=== PATIENT | female | born 1950 | race Caucasian/White ===

== ENCOUNTER → 2017-11-10 08:37 | Outpatient (CLI) | payer MEDICARE, OTHER, SELFPAY ==
--- NOTE | 2017-11-10 08:48 | MM_ITS ---
MM Dig screening mamm BI w/CAD CAD Screening ORDERING PHYSICIAN : Mayur Barnhart MD PATIENT AGE: 67 years GENDER: Female COMPARISON: Previous mammograms Previous mammograms 08/16/2014, April 2012. December 2010. Including outside studies from [facility] HISTORY no hormones. No new complaints. Previous needle biopsies right breast benign. Laboratory family history TECHNIQUE: Standard CC and MLO images were obtained. R2 CAD reviewed. FINDINGS: Low-density breast. . Generalized replacement with minimal fibroglandular elements The scattered densities right breast appear stable since studies dating back to 2013 & even 2011 on right. The deep axillary nodes right breast appears stable. Deep margin right breast and axillary tail left breast. No significant new findings. . IMPRESSION: . Stable mammogram since 2013. No significant new findings. Bilateral follow-up one year recommended. BI-RADS Category: 2 Benign Finding(s) RECOMMENDED FOLLOW-UP: 1YR - 1 YEAR FOLLOW-UP (A letter has been sent to the patient regarding results of the study.)
== END ==
PROVIDERS: Family Provider Internal Medicine Adolescent Medicine; PCP Internal Medicine Adolescent Medicine; Visit Provider Internal Medicine Adolescent Medicine
DX: Z12.31 Encounter for screening mammogram for malignant neoplasm of breast (principal)
CPT/HCPCS: 77067

== ENCOUNTER → 2019-08-26 11:35 | Outpatient (CLI) | payer MEDICARE, OTHER, SELFPAY ==
--- NOTE | 2019-08-26 11:42 | XR_ITS ---
PROCEDURE: XR MULTIPLE SPINE 6+V CLINICAL INDICATION: MIDLINE AND LOW BACK PAIN Midlung back pain. Bilateral low back pain COMPARISON: CXR1 CHEST-PORTABLE from 08/28/2016 FINDINGS: Thoracic spine: Mild thoracic scoliosis convex right. Multilevel degenerative disc disease is present in the midthoracic spine with endplate osteophytes. No obvious acute fracture or dislocation. There is increased soft tissue density in the left lung apex medially suspicious for a mass. Recommend chest CT with contrast for further evaluation. Lumbar spine: Mild lumbar scoliosis convex left. Facet arthritic changes are present at L5-S1. There is degenerative disc disease at L2-L3 and L3-L4. No acute fracture or dislocation. No lytic or blastic change IMPRESSION: 1. Left upper lobe mass medially. Recommend chest CT with contrast for further evaluation 2. Degenerative changes thoracic spine with mild scoliosis convex right. 3. Degenerative changes lumbar spine with mild scoliosis convex left Dictated by: Gil Emerson MD 08/26/2019 12:12 Electronically signed by Gil Emerson MD in [place] 08/26/2019 12:12
== END ==
PROVIDERS: PCP Nurse Practitioner Family; Visit Provider Nurse Practitioner Family
DX: M54.5 Low back pain (principal); M54.6 Pain in thoracic spine
CPT/HCPCS: 72084

== ENCOUNTER → 2019-09-03 14:08 | Outpatient (CLI) | payer MEDICARE, OTHER, SELFPAY ==
--- NOTE | 2019-09-03 14:45 | CT_ITS ---
PROCEDURE: CT CHEST W CON CLINCAL INDICATION: LUNG MASS Lung mass noted on recent thoracic spine film., smoker, COMPARISON: CXR1 CHEST-PORTABLE from 08/28/2016 XR MULTIPLE SPINE 6+V from 08/26/2019 TECHNIQUE: IV Contrast: 75ml Optiray 350 Axial images obtained with sagittal and coronal reformats. All CT scans at the facility use one or more dose reduction, viz: automated exposure control, ma/kV adjustment per patient size (including targeted exams where dose is matched to indication, i.e. head), or iterative reconstruction technique. FINDINGS: There is a soft tissue mass in the left upper chest medially measuring 6 cm cephalad caudad, 5.2 cm AP, and 4.2 cm transverse. This does abut the lateral aspect of the posterior mediastinum on the left abutting the left subclavian artery posteriorly and laterally but not encircling the artery. The mass also abuts the left lateral aspect of the aortic arch. No obvious mediastinal or hilar adenopathy. There are few small nodes present within the mediastinum and shari. There is some nonspecific patchy ground-glass density in both lungs. There is a faint 8 mm nodule in the superior segment of the left lower lobe posteriorly. A 3 mm noncalcified nodules present in the left upper lobe laterally. A subpleural nodules present in the medial aspect of the lingula at 4 mm. There are atelectatic or fibrotic changes in the lung bases. There are scattered subpleural opacities in the left lower lobe nonspecific measuring up to 3 mm. Patchy density is also present in the left upper lobe laterally. There are centrilobular emphysematous changes. An irregular nodular opacity is present in the right upper lobe in the perihilar region at 5 mm. A subpleural nodules present in the right middle lobe anteriorly at 9 mm and 1 in the right middle lobe medially at 5 mm. Other smaller subpleural nodular opacities are present in the right lower lobe. No axillary adenopathy. Upper abdominal images show a subtle isodense to the in the right hepatic lobe at the periportal area at 13 mm and could even be due to fatty infiltration. There is an incompletely imaged solid mass in the retroperitoneum on the left measuring 7.3 cm AP and 6 cm transverse. This is contiguous with the left adrenal gland. The left kidney is not imaged to determine the definite organ of origin. No bony destructive process evident. IMPRESSION: 1. 6 x 5 cm mass involving the medial aspect of the left upper lobe abutting the mediastinum and Ragini final pleural region highly suspicious for neoplasm. 2. There is a 7 cm retroperitoneal mass on the left which may be adrenal or renal in origin. Recommend abdomen CT without and with contrast with renal protocol for further evaluation. This is also highly suspicious for neoplasm and may be metastatic or primary. 3. There are several small pulmonary nodular opacities which are indeterminate and could be postinflammatory or neoplastic such as metastatic disease. 4. Centrilobular emphysema with scattered ground-glass densities of the lung Dictated by: Gil Emerson MD 09/04/2019 10:57 Electronically signed by Gil Emerson MD in [place] 09/04/2019 10:57
== END ==
PROVIDERS: PCP Nurse Practitioner Family; Visit Provider Nurse Practitioner Family
DX: R91.8 Other nonspecific abnormal finding of lung field (principal)
CPT/HCPCS: 71260; Q9967

== ENCOUNTER → 2020-03-28 09:02 | Outpatient (CLI) | payer MEDICARE, OTHER, SELFPAY ==
[2020-03-28 09:17] LABS: Adenovirus F 40/41, stool Not Detected (NotDetected); Astrovirus Not Detected (NotDetected); Campylobacter Not Detected (NotDetected); Clostridium Difficile A/B, PCR Not Detected (NotDetected); Cryptosporidium Not Detected (NotDetected); Cyclospora Cayetanesis Not Detected (NotDetected); Entamoeba histolytica Not Detected (NotDetected); Enteroaggregative E coli Not Detected (NotDetected); Enteropathogenic E coli Not Detected (NotDetected); Enterotoxigenic E coli Not Detected (NotDetected); Giardia lamblia Not Detected (NotDetected); Norovirus Not Detected (NotDetected); Plesimonas Shigalloides, PCR Not Detected (NotDetected); Rotavirus A Not Detected (NotDetected); Salmonella, PCR Not Detected (NotDetected); Sapovirus Not Detected (NotDetected); Shiga-like toxin E coli Not Detected (NotDetected); Shigella Enterovasive E coli Not Detected (NotDetected); Vibrio Cholerae Not Detected (NotDetected); Vibrio, PCR Not Detected (NotDetected); Yersinia Entercolitica, PCR Not Detected (NotDetected)
[2020-03-30 08:56] LABS: Fats, Neutral Normal (.); Fats, Total Normal (.)
[2020-04-05 19:42] LABS: Lactoferrin, Fecal, Quant. 5.24 ug/mL(g) (0.00-7.24)
== END ==
PROVIDERS: Visit Provider Internal Medicine Gastroenterology
DX: R15.2 Fecal urgency (principal); K52.9 Noninfective gastroenteritis and colitis, unspecified
CPT/HCPCS: 82705; 83630; 87205; 87506

== ENCOUNTER → 2020-09-01 15:36 | Outpatient (CLI) | payer MEDICARE, OTHER, SELFPAY | PROVIDERS: Visit Provider Urology | DX: N39.0 Urinary tract infection, site not specified (principal) | CPT/HCPCS: 87086 ==

== ENCOUNTER → 2020-09-05 13:44 | Outpatient (CLI) | payer MEDICARE, OTHER, SELFPAY ==
--- NOTE | 2020-09-05 13:53 | XR_ITS ---
PROCEDURE: XR KUB CLINICAL INDICATION: DYSURIA,HEMATURIA,TERESO FLANK PAIN COMPARISON: CT ABDPELW CT ABD PELVIS W/ CONTRAST from 12/24/2016 FINDINGS: Nonspecific nonobstructive bowel gas pattern. Suture line is present in the pelvic region. There is a circular density in the right upper quadrant at the costo vertebral junction and an additional circular density in the left upper quadrant. This may be due to overlying garment artifact. No definite ureteral or renal calculi parent. There are mild degenerative changes of the spine and hips. IMPRESSION: No definite renal or ureteral calculus evident. Dictated by: Gil Emerson MD 09/05/2020 16:44 Gil Emerson MD in [place] 09/05/2020 16:44
[2020-09-05 16:01] LABS: Basophils # 0.1 K/mm3 (0-0.2); Basophils % 0.9 % (0.1-2.0); Eosinophils # 0.1 K/mm3 (0.0-0.4); Eosinophils % 1.5 % (0.1-12.0); Hematocrit 43.7 % (37.0-47.0); Hemoglobin 13.7 g/dL (12.2-16.2); Lymphocytes # 2.4 K/mm3 (0.7-4.5); Lymphocytes % 28.2 % (10-50); Mean Corpuscular HGB Conc 31.3 g/dL (31.8-35.4); Mean Corpuscular Hemoglobin 28.6 pg (27.0-31.2); Mean Corpuscular Volume 91.4 fl (81-99); Mean Platelet Volume 9.2 fl (7.4-10.4); Monocytes # 0.6 K/mm3 (0.1-1.0); Monocytes % 6.5 % (1.7-9.3); Neutrophils # 5.4 K/mm3 (1.8-7.8); Platelet Count 279 K/mm3 (142-424); Red Blood Count 4.79 M/mm3 (4.20-5.40); Red Cell Distribution Width 14.2 % (11.5-17.5); White Blood Count 8.6 K/mm3 (4.8-10.8)
[2020-09-05 16:48] LABS: Chloride 104 mmol/L (98-107); Sodium 139 mmol/L (136-145)
[2020-09-05 16:50] LABS: Alanine Aminotransferase 27 U/L (12-78); Aspartate Amino Transferase 39 U/L (14-36); Blood Urea Nitrogen 11 mg/dl (7-17); Estimated Glomerular Filt Rate 83 ml/min (>60); GFR (African American) 101 ML/MIN (>60)
[2020-09-05 16:51] LABS: Albumin Level 4.4 g/dl (3.5-5.0); Albumin/Globulin Ratio 1.3 (1.1-1.8); Alkaline Phosphatase 96 U/L (38-126); Bilirubin,Total 0.6 mg/dl (0.2-1.3); Calcium 9.7 mg/dl (8.4-10.2); Carbon Dioxide 25 mmol/L (22.0-30.0); Globulin 3.4 g/dL (1.3-3.2); Glucose 87 mg/dl (74-100); Total Protein,Serum 7.8 g/dl (6.3-8.2)
[2020-09-07 11:30] LABS: Covid-19 Nasal PCR Sendout P&C NEGATIVE
== END ==
PROVIDERS: PCP Nurse Practitioner Family; Visit Provider Nurse Practitioner Family
DX: Z01.812 Encounter for preprocedural laboratory examination (principal); Z11.52 Encounter for screening for COVID-19; R10.9 Unspecified abdominal pain; R31.29 Other microscopic hematuria; R30.0 Dysuria
CPT/HCPCS: 36415; 74018; 80053; 85025; U0004

== ENCOUNTER → 2020-09-12 14:40 | Outpatient (CLI) | payer MEDICARE, OTHER, SELFPAY ==
[2020-09-12 16:03] LABS: Blood Urea Nitrogen 10 mg/dl (7-17); Estimated Glomerular Filt Rate 62 ml/min (>60); GFR (African American) 75 ML/MIN (>60)
== END ==
PROVIDERS: Visit Provider Internal Medicine Hematology & Oncology
DX: Z01.812 Encounter for preprocedural laboratory examination (principal)
CPT/HCPCS: 36415; 82565; 84520

== ENCOUNTER 2020-09-13 08:55 | Outpatient (CLI) | payer MEDICARE, OTHER, SELFPAY ==
--- NOTE | 2020-09-13 09:00 | CT_ITS ---
PROCEDURE: CT ABDOMEN PELVIS W CON CLINICAL INDICATION: PER CLINICAL TRIAL PROTOCOL Follow-up adrenal mass, lung cancer, metastatic disease Prior appendectomy COMPARISON: CT ABDPELW CT ABD PELVIS W/ CONTRAST from 12/24/[address] CHEST W CON from 09/03/2019 TECHNIQUE: IV Contrast: 75ML Isovue 370 Oral Contrast None Axial images obtained with sagittal and coronal reformats. All CT scans at the facility use one or more dose reduction, viz: automated exposure control, ma/kV adjustment per patient size (including targeted exams where dose is matched to indication, i.e. head), or iterative reconstruction technique. FINDINGS: There is mild diffuse fatty liver infiltration. No focal liver lesions are evident. Left adrenal mass is once again noted measuring 3.4 by 2.3 cm previously 7.3 by 6 cm. There is some minimal calcification along the upper pole of the mass. There is also some mild stranding of the fat around this lesion. The right adrenal gland has an unremarkable appearance. The spleen, pancreas, and kidneys have an unremarkable appearance. There is a retro aortic left renal vein as a normal variant. Suture line is present at the cecal region. There is some thickening of the sigmoid colon nonspecific. This could be due to nondistention or mild colitis. There is a suture line at the rectosigmoid region. There is moderate to severe thickening of the urinary bladder wall and minimal stranding of the fat around the urinary bladder consistent with cystitis. Neoplasm would be included in the differential diagnosis. No acute bony findings. IMPRESSION: 1. Left adrenal mass is smaller compared to the previous exam as described above 2. Moderate to severe irregular thickening of the urinary bladder wall with stranding of the fat consistent with cystitis. Neoplasm would be included in the differential diagnosis. 3. Mild thickening of the sigmoid colon which could be due to nondistention or mild colitis. Dictated by: Gil Emerson MD 09/14/2020 12:20 Gil Emerson MD in [place] 09/14/2020 12:20
--- NOTE | 2020-09-13 09:02 | CT_ITS ---
PROCEDURE: CT CHEST W CON CLINCAL INDICATION: PER CLINICAL TRIAL PROTOCOL Lung cancer Currently on keytuda Increased soa COMPARISON: CT CT CHEST W CON from 09/03/2019 TECHNIQUE: IV Contrast: 75ml Isovue 370 Axial images obtained with sagittal and coronal reformats. All CT scans at the facility use one or more dose reduction, viz: automated exposure control, ma/kV adjustment per patient size (including targeted exams where dose is matched to indication, i.e. head), or iterative reconstruction technique. FINDINGS: There is 3.3 x 2.8 cm soft tissue mass in the left upper lobe medially. This does appear to involve the posterior mediastinal fat and extends just along the posterior lateral aspect of the left subclavian artery. The mass previously measured 5.2 x 4.2 cm. Small node is present in the AP window on the left at 12 mm not significantly changed. Coronary artery calcifications are present. There is irregular scattered increased density in the left upper lobe medially both anteriorly and posteriorly and may be related to radiation changes which has developed since the previous exam. There are scattered areas of ground-glass attenuation in the upper lobe on the right unchanged. 8 mm nodule in the right middle lobe may be slightly more prominent. Subpleural nodules present in the right middle lobe anteriorly at 9 mm unchanged with an additional 4 mm subpleural nodule medially in the right middle lobe unchanged. There is a new 9 mm nodule in the right lung base medially. A 10 mm nodule is present in the right lung base posteriorly. This has developed since the previous exam. There are 2 subpleural nodules in the right lower lobe posteriorly which are unchanged. Subpleural nodules in the left lower lobe are unchanged. A nodular opacity present along the left hemidiaphragm at 5 mm is present and unchanged 5 mm nodule left lower lobe posteriorly unchanged No acute bony findings. No lytic or blastic change evident. IMPRESSION: 1. Interval decrease in size in left upper lobe mass with suspected post radiation changes. 2. Multiple bilateral pulmonary nodules. There are 2 new nodules in the right lower lobe suspicious for metastatic foci. Dictated by: Gil Emerson MD 09/14/2020 12:13 Gil Emerson MD in [place] 09/14/2020 12:13
[2020-09-13 10:10] VITALS: BP 162/66; PULSE 75; RESP 18; TEMP 36.6; O2SAT 99
[2020-09-13 10:40] VITALS: BP 178/77; PULSE 75; RESP 18
[2020-09-13 11:10] VITALS: BP 171/75; PULSE 73; RESP 18; O2SAT 100
== END 2020-09-13 11:15 | disposition home or self-care (01) ==
LOC: RAD 08:56 → INF 10:04
PROVIDERS: PCP Internal Medicine Adolescent Medicine; Visit Provider Internal Medicine Hematology & Oncology
DX: E86.0 Dehydration (principal); C34.90 Malignant neoplasm of unspecified part of unspecified bronchus or lung; N30.30 Trigonitis without hematuria; N30.10 Interstitial cystitis (chronic) without hematuria
CPT/HCPCS: 71260; 74177; 96360; J1642; Q9967

== ENCOUNTER → 2020-11-09 15:48 | Outpatient (CLI) | payer MEDICARE, OTHER, SELFPAY | PROVIDERS: Visit Provider Urology | DX: N30.10 Interstitial cystitis (chronic) without hematuria (principal) | CPT/HCPCS: 87086 ==

== ENCOUNTER → 2021-06-07 12:06 | Outpatient (CLI) | payer MEDICARE, OTHER, SELFPAY | PROVIDERS: Visit Provider Internal Medicine Adolescent Medicine | DX: R30.0 Dysuria (principal); W19.XXXA Unspecified fall, initial encounter | CPT/HCPCS: 87086; 87088; 87186 ==

== ENCOUNTER → 2021-06-20 10:55 | Outpatient (CLI) | payer MEDICARE, OTHER, SELFPAY | PROVIDERS: Visit Provider Internal Medicine Adolescent Medicine | DX: R30.9 Painful micturition, unspecified (principal); B96.4 Proteus (mirabilis) (morganii) as the cause of diseases classified elsewhere | CPT/HCPCS: 87086; 87088; 87186 ==

== ENCOUNTER → 2021-08-13 14:50 | Outpatient (CLI) | payer MEDICARE, OTHER, SELFPAY | PROVIDERS: Visit Provider Nurse Practitioner Family | DX: R30.0 Dysuria (principal); B96.4 Proteus (mirabilis) (morganii) as the cause of diseases classified elsewhere | CPT/HCPCS: 87086; 87088; 87186 ==

== ENCOUNTER → 2021-10-23 12:54 | Outpatient (POV) | payer MEDICARE, OTHER, SELFPAY | PROVIDERS: Visit Provider Dermatology | DX: Z00.00 Encounter for general adult medical examination without abnormal findings (principal) ==

== ENCOUNTER → 2021-11-01 17:11 | Outpatient (CLI) | payer MEDICARE, OTHER, SELFPAY | PROVIDERS: Visit Provider Urology | DX: N30.10 Interstitial cystitis (chronic) without hematuria (principal) | CPT/HCPCS: 87086; 87088; 87186 ==

== ENCOUNTER → 2021-11-20 13:16 | Outpatient (POV) | payer MEDICARE, OTHER, SELFPAY | PROVIDERS: Visit Provider Dermatology | DX: Z00.00 Encounter for general adult medical examination without abnormal findings (principal) ==

== ENCOUNTER → 2021-11-30 15:02 | Outpatient (CLI) | payer MEDICARE, OTHER, SELFPAY ==
--- NOTE | 2021-11-30 15:06 | MR_ITS ---
FINAL REPORT CLINICAL HISTORY: PUDENDAL NEURALGIA, LUMBAR NEURALGIA. URINARY AND BOWEL INCONTINENCE. LUNG AND ADRENAL CANCER. RADIATION X2YRS AGO. FINDINGS: Multiplanar MR imaging of the lumbar spine was performed without contrast. On the sagittal T2-weighted images, disc degeneration is seen at multiple levels. The vertebral alignment is normal. There is no evidence of fracture. No bony mass is identified. The conus has an unremarkable appearance. No significant canal stenosis is identified. T11-T12: Unremarkable. T12-L1: An annular bulge is present. L1-2: There is no significant canal stenosis or neural foraminal narrowing. L2-3: An annular bulge is present. Vertebral osteophytes and bilateral facet arthropathy are present. Moderate right and mild left neural foraminal narrowing is seen. L3-4: An annular bulge is present. There is mild bilateral neural foraminal narrowing. L4-5: An annular bulge is present. A left foraminal disc protrusion is seen with probable left L5 nerve root impingement. Mild right and moderate left neural foraminal narrowing is seen. L5-S1: An annular bulge is present. There is bilateral facet arthropathy. There is mild bilateral neural foraminal narrowing. IMPRESSION: Multilevel degenerative disc disease and spondylosis as described. Left foraminal L4-5 disc protrusion with probable left L5 nerve root impingement. Authenticated by Tavon Gonzales III, MD on 11/30/2021 04:42:51 PM [facility]
== END ==
PROVIDERS: PCP Nurse Practitioner Family; Visit Provider Internal Medicine Adolescent Medicine
DX: G58.8 Other specified mononeuropathies (principal); R15.9 Full incontinence of feces
CPT/HCPCS: 72148; 76376

== ENCOUNTER 2021-12-07 13:05 | Outpatient (RCR) | payer MEDICARE, OTHER, SELFPAY | END 2021-12-07 13:10 | disposition home or self-care (01) | LOC: PT 13:05 | PROVIDERS: PCP Nurse Practitioner Family; Visit Provider Internal Medicine Adolescent Medicine | DX: M54.16 Radiculopathy, lumbar region (principal) ==

== ENCOUNTER → 2022-01-01 13:04 | Outpatient (POV) | payer MEDICARE, OTHER, SELFPAY | PROVIDERS: Visit Provider Dermatology | DX: Z00.00 Encounter for general adult medical examination without abnormal findings (principal) ==

== ENCOUNTER 2022-02-14 15:17 | Emergency (ER) | payer MEDICARE, OTHER, SELFPAY ==
[2022-02-14 15:19] VITALS: BP 165/90; PULSE 86; RESP 16; TEMP 36.6; O2SAT 98; BMI 28.3
--- NOTE | 2022-02-14 15:23 | PC.NURSE ---
pt ambulatory from waiting room to ED room 5 with family; no complications. Claudine RN at BS to triage, pt hooked to monitor. pt given a warm blanket. No other needs at this time
--- NOTE | 2022-02-14 15:28 | PC.NURSE ---
ER speaking with pt at BS regarding update on POC
--- NOTE | 2022-02-14 15:39 | PC.NURSE ---
ER at speaking with patient and family
[2022-02-14 15:46] VITALS: BP 149/61; PULSE 80; O2SAT 96
--- NOTE | 2022-02-14 15:54 | HMH.EDGENADL ---
ED Disposition Clinical Impression: Neuralgia of both pudendal nerves UTI (urinary tract infection) Qualifiers: Urinary tract infection type: acute cystitis Hematuria presence: without hematuria Qualified Code(s): N30.00 - Acute cystitis without hematuria Disposition: Home, Self-Care Condition on Discharge: Good Instructions: DI for Chronic Pain -- Adult, Urinary Tract Infection Additional Instructions: follow up PCP, return here for worse Prescriptions: Cefdinir [Omnicef 300mg Capsule] 300 mg PO BID #20 cap Transmission Status: Pending to [id number] Phenazopyridine HCl [Pyridium 200mg Tablet] 200 pow PO TID #6 tab Transmission Status: Pending to [id number] Referrals: Mayur Barnhart MD [Primary Care Provider] - - Critical Care Critical Care Time: No Attestation: On , the high probability of a clinically significant, sudden or life threatening deterioration of the following system(s) required my full and direct attention, intervention and personal management. The time I documented below is in addition to time spent performing reported procedures but includes the following listed in this critical care notation. Medical Decision Making - Medical Records Medical records reviewed: Yes: I reviewed the patient's medical records. - Horacio Inquiry Pt receiving controlled substance: No Vital Signs: 02/14/22 15:19 02/14/22 15:46 02/14/22 16:00 Temperature 98 F Temperature Source Oral Pulse Rate 80 79 Pulse Rate [Radial] 86 Respiratory Rate 16 Blood Pressure 149/61 H 141/76 H Blood Pressure [Right Arm] 165/90 H Blood Pressure Mean 90 95 Blood Pressure Mean [Right Arm] 115 Blood Pressure Position Blood Pressure Position [Right Arm] Sitting 02 Sat by Pulse Oximetry 98 96 95 Oxygen Delivery Method Room Air Room Air Room Air 02/14/22 16:30 Temperature Temperature Source Pulse Rate 78 Pulse Rate [Radial] Respiratory Rate Blood Pressure 153/77 H Blood Pressure [Right Arm] Blood Pressure Mean 102 Blood Pressure Mean [Right Arm] Blood Pressure Position Sitting Blood Pressure Position [Right Arm] 02 Sat by Pulse Oximetry 96 Oxygen Delivery Method Room Air - Lab Data Lab Results 02/14/22 16:05: Urine Color Yellow, Urine Appearance Clear, Urine pH 6.0, Ur Specific [place] 1.025, Urine Protein 2+, Urine Glucose (UA) Negative, Urine Ketones Trace, Urine Blood 2+, Urine Nitrate Positive, Urine Bilirubin 1+ A, Urine Urobilinogen 0.2, Ur Leukocyte Esterase 2+ A Orders (Tests/Meds): ED MEDICATIONS Discontinued Medications Generic Name Dose Route Start Last Admin Trade Name Clarence PRN Reason Stop Dose Admin Ketorolac Tromethamine 30 mg 02/14/22 15:50 02/14/22 16:16 Ketorolac 30mg/Ml Vial IM 02/14/22 15:51 30 mg ONCE ONE Administration Morphine Sulfate 6 mg 02/14/22 15:50 02/14/22 16:16 Morphine 2mg/Ml Syringe IM 02/14/22 15:51 6 mg ONCE ONE Administration ORDERS Category Date Time Status Urinalysis and Microscopic Stat Lab 02/14/22 16:05 Results Urine Culture Stat Micro 02/14/22 16:05 Received - Reevaluation(s) Time: 16:31 (reeval, appears well, vss, ok with plan to f/u PCP) General Adult HPI - General Chief complaint: PAIN Stated complaint: Cancer pain [place] Time Seen by Provider: 02/14/22 15:54 Mode of Arrival: Ambulatory Limitations: No Limitations Description of Symptoms (Recalled from ER Triage Doc. by RN): to ed per pvt car with c/o severe pain with urination. pt with hx of stage 4 lung cancer getting keytruda tx. pt states she has had pain with urination for months has seen several drs for same but over the last 2 days she has been screaming in pain. 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
[2022-02-14 16:00] VITALS: BP 141/76; PULSE 79; O2SAT 95
--- NOTE | 2022-02-14 16:17 | PC.NURSE ---
straight cathed. pt c/o pain. daughter at bedside.
[2022-02-14 16:22] LABS: Microscopic, Urine URINE MICROSCOPIC (MICROSCOPIC)
[2022-02-14 16:26] LABS: Appearance,Urine CLEAR (Clear); Blood, Urine 2+ (Negative); Color,Urine YELLOW (Yellow); Glucose,Urine (UA) Negative (Negative); Ketones,Urine TRACE (Negative); Leukocyte Esterase,Urine 2+ (Negative); Nitrate,Urine POSITIVE (Negative); Protein,Urine 2+ (Negative); Specific Gravity, Urine 1.025 (1.005-1.030); Urobilinogen,Urine 0.2 EU/dl (0.2)
[2022-02-14 16:30] VITALS: BP 153/77; PULSE 78; O2SAT 96
[2022-02-14 16:45] LABS: Bilirubin,Urine 1+ (Negative)
[2022-02-14 16:58] LABS: RBC,Urine 20-50 #/hpf (0-3); WBC,Urine 50-100 #/hpf (0-3)
[2022-02-14 16:59] LABS: Bacteria,Urine 2+ /lpf
[2022-02-14 17:00] VITALS: BP 142/72; PULSE 81; O2SAT 98
[2022-02-14 17:10] VITALS: BP 140/73; PULSE 80; RESP 15; TEMP 36.6; O2SAT 99
== END 2022-02-14 17:11 | disposition home or self-care (01) ==
PROVIDERS: Emergency Provider Emergency Medicine; PCP Internal Medicine Adolescent Medicine
DX: C34.90 Malignant neoplasm of unspecified part of unspecified bronchus or lung (principal); R10.2 Pelvic and perineal pain; Z87.440 Personal history of urinary (tract) infections; E78.5 Hyperlipidemia, unspecified; I10 Essential (primary) hypertension; M19.90 Unspecified osteoarthritis, unspecified site; Z87.891 Personal history of nicotine dependence
CPT/HCPCS: 81001; 87086; 87088; 87186; 96374; 96375; 99284

== ENCOUNTER → 2022-03-05 13:25 | Outpatient (POV) | payer MEDICARE, OTHER, SELFPAY | PROVIDERS: Visit Provider Dermatology | DX: Z00.00 Encounter for general adult medical examination without abnormal findings (principal) ==

== ENCOUNTER 2022-04-16 16:39 | Emergency (ER) | payer MEDICARE, OTHER, SELFPAY ==
--- NOTE | 2022-04-16 16:39 | ECG_ITS ---
APPROVED REPORT Exam: Resting ECG HR:95 bpm ECG Measurements Heart Rate 95 AXES DC 145 P 48 QRSd 86 QRS -20 QT 345 T 24 QTc 398 Conclusion SINUS RHYTHM LOW QRS VOLTAGE IN PRECORDIAL LEADS [QRS DEFLECTION < 1.0 mV IN CHEST LEADS] PATTERN CONSISTENT WITH PULMONARY DISEASE LEFT VENTRICULAR HYPERTROPHY AND ST-T CHANGE [VOLTAGE CRITERIA PLUS ST/T ABNORMALITY] ABNORMAL ECG UNCONFIRMED REPORT Electronically signed by : Mayur Barnhart MD 04/20/2022 08:13:35
[2022-04-16 16:45] VITALS: BP 157/76; PULSE 103; RESP 16; TEMP 37.2; O2SAT 99; BMI 27.0
[2022-04-16 17:00] VITALS: BP 148/76; PULSE 96; RESP 18; O2SAT 96
--- NOTE | 2022-04-16 17:05 | XR_ITS ---
PROCEDURE INFORMATION: Exam: XR Chest Exam date and time: 04/16/2022 5:41 PM Age: 71 years old Clinical indication: Pain; Chest pressure; Additional info: Weakness, cp TECHNIQUE: Imaging protocol: Radiologic exam of the chest. Views: 1 view. COMPARISON: CT CHEST W CON 09/13/2020 9:35 AM FINDINGS: Tubes, catheters and devices: Right port tip projects over the superior cavoatrial junction. Lungs: There is a mid left lung opacity that could correlate with atypical infection in the appropriate clinical setting. Masslike left upper lobe opacity is similar to prior study. Pleural spaces: Unremarkable. No pleural effusion. No pneumothorax. Heart/Mediastinum: Unremarkable. No cardiomegaly. Vasculature: Vascular calcifications. Bones/joints: Unremarkable. IMPRESSION: 1. There is a mid left lung opacity that could correlate with atypical infection in the appropriate clinical setting. Metastatic disease or recurrent malignancy is also possible. 2. Masslike left upper lobe opacity is similar to prior study.
[2022-04-16 17:47] LABS: Basophils # 0.1 K/mm3 (0-0.2); Basophils % 0.7 % (0.1-2.0); Eosinophils # 0.1 K/mm3 (0.0-0.4); Eosinophils % 0.8 % (0.1-12.0); Hematocrit 42.8 % (37.0-47.0); Hemoglobin 13.3 g/dL (12.2-16.2); Lymphocytes # 1.4 K/mm3 (0.7-4.5); Lymphocytes % 12.1 % (10-50); Mean Corpuscular Hemoglobin 27.9 pg (27.0-31.2); Mean Corpuscular Volume 90.2 fl (81-99); Mean Platelet Volume 8.7 fl (7.4-10.4); Monocytes # 0.7 K/mm3 (0.1-1.0); Monocytes % 6.5 % (1.7-9.3); Neutrophils % 79.9 % (37.0-80.0); Platelet Count 324 K/mm3 (142-424); Red Blood Count 4.75 M/mm3 (4.20-5.40); Red Cell Distribution Width 14.9 % (11.5-17.5); White Blood Count 11.3 K/mm3 (4.8-10.8)
[2022-04-16 17:50] LABS: Alanine Aminotransferase 34 U/L (12-78); Albumin Level 3.7 g/dl (3.5-5.0); Alkaline Phosphatase 136 U/L (38-126); Anion Gap 12.2 mEq/L (5-15); Aspartate Amino Transferase 61 U/L (14-36); Bilirubin,Total 0.2 mg/dl (0.2-1.3); Blood Urea Nitrogen 4 mg/dl (7-17); Calcium 8.7 mg/dl (8.4-10.2); Carbon Dioxide 28 mmol/L (22.0-30.0); Chloride 104 mmol/L (98-107); Creatinine Clearance Estimated 68 mL/min (50-200); Estimated Glomerular Filt Rate 55 ml/min (>60); GFR (African American) 67 ML/MIN (>60); Globulin 3.8 g/dL (1.3-3.2); Glucose 114 mg/dl (74-100); Potassium 3.2 mmoL/L (3.5-5.1); Sodium 141 mmol/L (136-145); Total Protein,Serum 7.5 g/dl (6.3-8.2)
--- NOTE | 2022-04-16 17:58 | HMH.EDGENADL ---
ED Disposition Clinical Impression: UTI (urinary tract infection) Qualifiers: Urinary tract infection type: site unspecified Hematuria presence: without hematuria Qualified Code(s): N39.0 - Urinary tract infection, site not specified Disposition: Home, Self-Care Condition on Discharge: Good Instructions: Urinary Tract Infection Prescriptions: Amoxicillin/Potassium Clav [Augmentin 500mg tab] 1 tab PO BID 3 Days #14 tab Transmission Status: Pending to [id number] Referrals: Mayur Barnhart MD [Primary Care Provider] - - Critical Care Critical Care Time: No Attestation: On 04/16/22, the high probability of a clinically significant, sudden or life threatening deterioration of the following system(s) required my full and direct attention, intervention and personal management. The time I documented below is in addition to time spent performing reported procedures but includes the following listed in this critical care notation. Medical Decision Making - Medical Records Medical records reviewed: Yes: I reviewed the patient's medical records. - Horacio Inquiry Pt receiving controlled substance: No Vital Signs: 04/16/22 16:45 04/16/22 17:00 04/16/22 18:23 Temperature 99.0 F Temperature Source Oral Pulse Rate 96 H 93 H Pulse Rate [Right Radial] 103 H Respiratory Rate 16 18 18 Blood Pressure 148/76 H 167/70 H Blood Pressure [Right Arm] 157/76 H Blood Pressure Mean 94 90 Blood Pressure Mean [Right Arm] 103 Blood Pressure Source [Right Arm] Automatic Cuff Blood Pressure Position [Right Arm] Sitting 02 Sat by Pulse Oximetry 99 96 97 Oxygen Delivery Method Room Air - Lab Data Lab results reviewed: Yes: I reviewed the patient's lab results. Lab Results 04/16/22 16:50: WBC 11.3 H, RBC 4.75, Hgb 13.3, Hct 42.8, MCV 90.2, MCH 27.9, MCHC 31.0 L, RDW 14.9, Plt Count 324, MPV 8.7, Neut % (Auto) 79.9, Lymph % (Auto) 12.1, [place] % (Auto) 6.5, Eos % (Auto) 0.8, Baso % (Auto) 0.7, Neut # (Auto) 9.0 H, Lymph # (Auto) 1.4, [place] # (Auto) 0.7, Eos # (Auto) 0.1, Baso # (Auto) 0.1 04/16/22 16:50: Sodium 141, Potassium 3.2 L, Chloride 104, Carbon Dioxide 28, Anion Gap 12.2, BUN 4 L, Creatinine 1.00, Estimated Creat Clear 68, Estimated GFR 55 L, Est GFR ( Amer) 67, Glucose 114 H, Calcium 8.7, Total Bilirubin 0.2, AST 61 H, ALT 34, Alkaline Phosphatase 136 H, Troponin I < 0.01, Total Protein 7.5, Albumin 3.7, Globulin 3.8 H, Albumin/Globulin Ratio 1.0 L 04/16/22 18:00: Urine Color Yellow, Urine Appearance Sl cloudy, Urine pH 6.0, Ur Specific [place] 1.020, Urine Protein 2+, Urine Glucose (UA) Negative, Urine Ketones Negative, Urine Blood 3+, Urine Nitrate Negative, Urine Bilirubin Negative, Urine Urobilinogen 0.2, Ur Leukocyte Esterase 1+ A, Urine RBC 50-100, Urine WBC 20-50, Ur Squamous Epith Cells 3-5, Urine Bacteria 1+ Result diagrams: 04/16/22 16:50 04/16/22 16:50 Orders (Tests/Meds): ED MEDICATIONS Generic Name Dose Route Start Last Admin Trade Name Freq PRN Reason Stop Dose Admin Ceftriaxone Sodium 1 gm/ 50 mls @ 100 mls/hr 04/16/22 18:40 Sodium Chloride IV 04/16/22 19:09 ONCE ONE Sodium Chloride 10 ml 04/16/22 17:05 Sodium Chloride 0.9% 10ml Flush Syringe IV 05/16/22 17:04 NEEDED PRN Maintain IV Site Discontinued Medications Generic Name Dose Route Start Last Admin Trade Name Freq PRN Reason Stop Dose Admin Potassium Chloride 20 meq 04/16/22 17:57 04/16/22 18:39 Potassium Chloride 20meq Tab PO 04/16/22 17:58 20 meq ONCE ONE Administration ORDERS Category Date Time Status Lactic Acid Stat Lab 04/16/22 17:59 Ordered Troponin I Q3H Lab 04/16/22 20:15 Ordered Troponin I Q3H Lab 04/16/22 23:15 Ordered Blood Culture Stat Micro 04/16/22 17:59 Ordered Urine Culture Stat Micro 04/16/22 18:00 Received General Adult HPI - General Chief complaint: Weakness Stated complaint: weakness Time Seen by Provider: 04/16/22 18:
[2022-04-16 18:06] LABS: Appearance,Urine SL CLOUDY (Clear); Bilirubin,Urine Negative (Negative); Blood, Urine 3+ (Negative); Color,Urine YELLOW (Yellow); Glucose,Urine (UA) Negative (Negative); Ketones,Urine Negative (Negative); Leukocyte Esterase,Urine 1+ (Negative); Microscopic, Urine URINE MICROSCOPIC (MICROSCOPIC); Nitrate,Urine Negative (Negative); Protein,Urine 2+ (Negative); Urobilinogen,Urine 0.2 EU/dl (0.2)
[2022-04-16 18:10] LABS: Troponin I < 0.01 ng/ml (0.00-0.034)
[2022-04-16 18:23] VITALS: BP 167/70; PULSE 93; RESP 18; O2SAT 97
[2022-04-16 18:24] LABS: Bacteria,Urine 1+ /lpf; RBC,Urine 50-100 #/hpf (0-3); WBC,Urine 20-50 #/hpf (0-3)
--- NOTE | 2022-04-16 18:24 | PC.NURSE ---
re cycled BP and Vitals
[2022-04-16 19:47] VITALS: BP 165/78; PULSE 89; RESP 16; TEMP 36.6; O2SAT 99
== END 2022-04-16 20:19 | disposition home or self-care (01) ==
PROVIDERS: Emergency Provider Emergency Medicine; PCP Internal Medicine Adolescent Medicine
DX: N39.0 Urinary tract infection, site not specified (principal); Z87.440 Personal history of urinary (tract) infections; Z85.9 Personal history of malignant neoplasm, unspecified; E78.5 Hyperlipidemia, unspecified; I10 Essential (primary) hypertension; Z87.891 Personal history of nicotine dependence
CPT/HCPCS: 71045; 80053; 81001; 84484; 85025; 87086; 93005; 96365; 99285; J0696

== ENCOUNTER 2022-04-23 12:44 | Outpatient (CLI) | payer MEDICARE, OTHER, SELFPAY ==
[2022-04-23 13:12] VITALS: BP 136/77; PULSE 78; RESP 16; TEMP 36.2; O2SAT 99
[2022-04-23 14:12] VITALS: BP 140/79; PULSE 76; RESP 16; TEMP 36.2; O2SAT 99
== END 2022-04-23 14:15 | disposition home or self-care (01) ==
LOC: INF 12:45
PROVIDERS: PCP Internal Medicine Adolescent Medicine; Visit Provider Internal Medicine Adolescent Medicine
DX: E86.0 Dehydration (principal)
CPT/HCPCS: 96360; J1642

== ENCOUNTER 2022-05-08 14:16 | Outpatient (CLI) | payer MEDICARE, OTHER, SELFPAY ==
[2022-05-08 14:30] VITALS: BP 122/78; PULSE 80; RESP 18; O2SAT 98
[2022-05-08 15:30] VITALS: BP 141/72; PULSE 65; RESP 16; O2SAT 100
== END 2022-05-08 15:40 | disposition home or self-care (01) ==
LOC: INF 14:17
PROVIDERS: PCP Internal Medicine Adolescent Medicine; Visit Provider Nurse Practitioner
DX: C34.90 Malignant neoplasm of unspecified part of unspecified bronchus or lung (principal); E86.0 Dehydration
CPT/HCPCS: 96360; J1642

== ENCOUNTER 2022-05-10 14:41 | Outpatient (CLI) | payer MEDICARE, OTHER, SELFPAY ==
[2022-05-10 14:50] VITALS: BP 132/73; PULSE 78; RESP 18; O2SAT 99
[2022-05-10 15:55] VITALS: BP 130/73; PULSE 70; RESP 18; O2SAT 99
== END 2022-05-10 15:55 | disposition home or self-care (01) ==
LOC: INF 14:41
PROVIDERS: PCP Internal Medicine Adolescent Medicine; Visit Provider Nurse Practitioner
DX: C34.90 Malignant neoplasm of unspecified part of unspecified bronchus or lung (principal); E86.0 Dehydration
CPT/HCPCS: 96360; 96361; J1642

== ENCOUNTER 2022-05-14 14:33 | Outpatient (CLI) | payer MEDICARE, OTHER, SELFPAY ==
[2022-05-14 14:53] VITALS: BP 113/64; PULSE 91; RESP 18; TEMP 36.3; O2SAT 99
[2022-05-14 15:50] VITALS: BP 120/73; PULSE 86; RESP 18; O2SAT 98
== END 2022-05-14 15:51 | disposition home or self-care (01) ==
LOC: INF 14:33
PROVIDERS: PCP Internal Medicine Adolescent Medicine; Visit Provider Nurse Practitioner
DX: C34.90 Malignant neoplasm of unspecified part of unspecified bronchus or lung (principal); E86.0 Dehydration; Z45.2 Encounter for adjustment and management of vascular access device
CPT/HCPCS: 96360; J1642

== ENCOUNTER 2022-05-15 10:56 | Outpatient (CLI) | payer MEDICARE, OTHER, SELFPAY ==
[2022-05-15 11:11] VITALS: BP 110/70; PULSE 68; RESP 18; O2SAT 99
[2022-05-15 12:16] VITALS: BP 115/76; PULSE 81; RESP 18; O2SAT 100
== END 2022-05-15 12:16 | disposition home or self-care (01) ==
LOC: INF 10:57
PROVIDERS: PCP Internal Medicine Adolescent Medicine; Visit Provider Nurse Practitioner
DX: C34.90 Malignant neoplasm of unspecified part of unspecified bronchus or lung (principal); E86.0 Dehydration
CPT/HCPCS: 96360; J1642

== ENCOUNTER 2022-05-17 14:16 | Outpatient (CLI) | payer MEDICARE, OTHER, SELFPAY ==
[2022-05-17 14:30] VITALS: BP 145/73; PULSE 68; RESP 18; O2SAT 99
[2022-05-17 15:46] VITALS: BP 166/70; PULSE 73; RESP 18; O2SAT 98
== END 2022-05-17 15:47 | disposition home or self-care (01) ==
LOC: INF 14:17
PROVIDERS: PCP Internal Medicine Adolescent Medicine; Visit Provider Nurse Practitioner
DX: Z45.2 Encounter for adjustment and management of vascular access device (principal); C34.90 Malignant neoplasm of unspecified part of unspecified bronchus or lung; E86.0 Dehydration
CPT/HCPCS: 96365; J1642

== ENCOUNTER → 2022-05-31 12:45 | Outpatient (CLI) | payer MEDICARE, OTHER, SELFPAY ==
[2022-05-31 13:33] LABS: Chloride 105 mmol/L (98-107); Sodium 139 mmol/L (136-145)
[2022-05-31 13:36] LABS: Blood Urea Nitrogen 6 mg/dl (7-17); Carbon Dioxide 26 mmol/L (22.0-30.0); Estimated Glomerular Filt Rate 83 ml/min (>60); GFR (African American) 100 ML/MIN (>60)
[2022-05-31 13:37] LABS: Calcium 8.2 mg/dl (8.4-10.2); Glucose 136 mg/dl (74-100)
[2022-05-31 14:02] LABS: Anion Gap 13.1 mEq/L (5-15); Potassium 5.1 mmoL/L (3.5-5.1)
== END ==
PROVIDERS: PCP Internal Medicine Adolescent Medicine; Visit Provider Internal Medicine Adolescent Medicine
DX: C34.92 Malignant neoplasm of unspecified part of left bronchus or lung (principal); R19.7 Diarrhea, unspecified; N39.0 Urinary tract infection, site not specified; E87.6 Hypokalemia; E86.0 Dehydration; I10 Essential (primary) hypertension
CPT/HCPCS: 80048; 83735; 84100

== ENCOUNTER → 2022-06-05 10:53 | Outpatient (CLI) | payer MEDICARE, OTHER, SELFPAY ==
[2022-06-05 12:26] LABS: Chloride 106 mmol/L (98-107); Sodium 139 mmol/L (136-145)
[2022-06-05 12:27] LABS: Potassium 4.4 mmoL/L (3.5-5.1)
[2022-06-05 12:29] LABS: Blood Urea Nitrogen 5 mg/dl (7-17); Estimated Glomerular Filt Rate 83 ml/min (>60); GFR (African American) 100 ML/MIN (>60)
[2022-06-05 12:30] LABS: Anion Gap 15.4 mEq/L (5-15); Calcium 8.4 mg/dl (8.4-10.2); Carbon Dioxide 22 mmol/L (22.0-30.0); Glucose 154 mg/dl (74-100); Magnesium 1.8 mg/dl (1.6-2.3); Phosphorous 4.2 mg/dl (2.5-4.5)
== END ==
PROVIDERS: PCP Internal Medicine Hematology & Oncology; Visit Provider Internal Medicine Hematology & Oncology
DX: C34.92 Malignant neoplasm of unspecified part of left bronchus or lung (principal); R19.7 Diarrhea, unspecified; N39.0 Urinary tract infection, site not specified; E87.6 Hypokalemia; E86.0 Dehydration; I10 Essential (primary) hypertension
CPT/HCPCS: 80048; 83735; 84100

== ENCOUNTER → 2022-06-12 14:02 | Outpatient (CLI) | payer MEDICARE, OTHER, SELFPAY ==
[2022-06-12 15:43] LABS: Anion Gap 19.5 mEq/L (5-15); Blood Urea Nitrogen 7 mg/dl (7-17); Calcium 8.4 mg/dl (8.4-10.2); Carbon Dioxide 18 mmol/L (22.0-30.0); Chloride 104 mmol/L (98-107); Estimated Glomerular Filt Rate 62 ml/min (>60); GFR (African American) 75 ML/MIN (>60); Glucose 140 mg/dl (74-100); Magnesium 1.6 mg/dl (1.6-2.3); Phosphorous 3.9 mg/dl (2.5-4.5); Potassium 4.5 mmoL/L (3.5-5.1); Sodium 137 mmol/L (136-145)
== END ==
LOC: LAB 14:03 → LAB.DROPOF 14:04
PROVIDERS: PCP Internal Medicine Hematology & Oncology; Visit Provider Internal Medicine Hematology & Oncology
DX: C34.92 Malignant neoplasm of unspecified part of left bronchus or lung (principal); R19.7 Diarrhea, unspecified; N39.0 Urinary tract infection, site not specified; E86.0 Dehydration; I10 Essential (primary) hypertension
CPT/HCPCS: 80048; 83735; 84100

== ENCOUNTER 2022-07-20 09:26 | Emergency (ER) | payer MEDICARE, OTHER, SELFPAY ==
[2022-07-20 11:05] VITALS: BP 104/60; PULSE 76; RESP 18; TEMP 36.7; O2SAT 96; BMI 24.3
--- NOTE | 2022-07-20 11:22 | EXP.UTC ---
Discharge Plan Disposition Patient Disposition: Home, Self-Care Condition: Good Prescriptions Prescriptions: New amoxicillin-pot clavulanate [Augmentin] 500-125 mg tablet 1 tab PO Q8H 7 Days Qty: 21 0RF benzonatate 100 mg capsule 100 mg PO TID PRN (Reason: cough) Qty: 30 0RF fluticasone propionate [Flonase Allergy Relief] 50 mcg/actuation spray,suspension 1 spray intranasal DAILY Qty: 16 0RF Rx Instructions: administer into each nostril No Action sertraline 50 mg tablet 50 mg PO DAILY mycophenolate mofetil 500 mg tablet 500 mg PO DAILY levothyroxine 50 mcg tablet 50 mcg PO DAILY aspirin 325 MG tablet 325 mg PO DAILY pravastatin 40 MG tablet 40 mg PO DAILY ergocalciferol (vitamin D2) 50,000 UNIT capsule 50,000 unit PO WEEKLY metoprolol tartrate 100 MG tablet 100 mg PO DAILY oxycodone 5 mg Tablet 5 mg PO BIDP PRN (Reason: Pain) prochlorperazine maleate [Compazine] 10 mg Tablet 10 mg PO Q6H PRN (Reason: Nausea) Referrals Follow up/Referrals: Mayur Barnhart MD [Primary Care Provider] - See instructions Activity Restrictions/Add. Instructions Additional Instructions/Restrictions: Start antibiotic today. Be sure to complete entire prescription even if feeling better Monitor temp. Tylenol every 4 hours as needed and / or ibuprofen every 6 hours as needed ( As long as your primary care physician has told you that it ok to take both. For fever/aches/pains ER if no less than 101 despite Tylenol or Motrin Humidifier/vaporizer or hot steamy shower Inhaler every 4-6 hours as needed like we discussed. If unsure how to use it, ask pharmacist to demonstrate how. Should help open airways and improve cough, wheezing, and shortness of breath Mucinex during the day for your cough and cough suppressant only at night. Be sure to drink lots of water. Insurance may not cover a prescriptions for mucinex. Might be cheaper to get 400mg tablets and take 2 tablet in the morning, mid-day and evening with lots of water. *Promethazine DM cough syrup will cause drowsiness. Use only at night. No driving, operating machinery or caring for small children after taking it *Tessalon Perles will not cause drowsiness but use at bedtime to help stop cough so that you may get some rest. *Start steroid today. Helps with inflammation therefore, cough and wheezing. Follow directions on the package. Reviewed side effects. Patient reports taking them before. Follow up IMMEDIATELY for new or worsening of symptoms OR no noticeable improvement over the next 48-72 hours. 911 immediately for any life threatening symptoms such as chest pain or difficulty breathing Discharge ED Provider: Sara Guerrero [facility] HPI General Stated complaint: Cough, GREGG Mode of Arrival: Ambulatory Source of Information: Patient Limitations: No Limitations Time Seen by Provider: 07/20/22 11:22 Description of Symptoms (Recalled from Triage Doc. by RN): PATIENT C/O COUGH AND HEADACHE X 2 DAYS HEENT Symptoms (Recalled from RN notes): Yes Resp Symptoms (Recalled from RN notes): Yes Skin Symptoms (Recalled from RN notes): No MS Symptoms (Recalled from RN notes): No Functional Status (Recalled from RN notes): WNL History of Present Illness Provider Complaint: Patient states that she has been having sore throat, headache and cough for several days States that last night she was up most of the night coughing and today she was still having cough so she came in to get checked Related Data Home Medications Medication Instructions Recorded Confirmed aspirin 325 mg tablet 325 mg PO DAILY prevent 01/30/18 05/17/22 ergocalciferol (vitamin D2) 1,250 50,000 unit PO WEEKLY Supplement 01/30/18 05/17/22 mcg (50,000 unit) capsule pravastatin 40 mg tablet 40 mg PO DAILY Cholesterol 01/30/18 05/17/22 levothyroxine 50 mcg tablet 50 mcg PO DAILY HYPOTHYROID 09/01/20 0
[2022-07-20 11:44] VITALS: BP 104/60; PULSE 76; RESP 18; TEMP 36.7; O2SAT 96
[2022-07-20 11:45] LABS: UTC Strep Screen (Rapid) Negative (Negative)
== END 2022-07-20 11:50 | disposition home or self-care (01) ==
PROVIDERS: Emergency Provider Nurse Practitioner; PCP Internal Medicine Adolescent Medicine
DX: J40 Bronchitis, not specified as acute or chronic (principal); J32.9 Chronic sinusitis, unspecified
CPT/HCPCS: 87880; 99212; G0463

== ENCOUNTER → 2022-10-14 13:51 | Outpatient (CLI) | payer MEDICARE, OTHER, SELFPAY ==
--- NOTE | 2022-10-14 14:00 | XR_ITS ---
FINAL REPORT CLINICAL HISTORY: LOWER BACK PAIN..ca patient FINDINGS: LUMBAR SPINE Five views demonstrate no acute fracture. There are mild and moderate degenerative changes. There is mild chronic T12 compression deformity. Moderate vascular calcification is identified. There is no malalignment. IMPRESSION: Degenerative changes without acute bony abnormality. Reviewed, Interpreted and Dictated by Tavon Gonzales III, MD Transcribed by Claudine Frank Authenticated and [facility]
--- NOTE | 2022-10-14 14:00 | XR_ITS ---
FINAL REPORT CLINICAL HISTORY: LOWER BACK PAIN...ca patient FINDINGS: Sacroiliac joints. Three views were obtained. There is no acute fracture or dislocation. There are mild degenerative changes of the sacroiliac joints. No soft tissue abnormality is identified. IMPRESSION: No acute process. Reviewed, Interpreted and Dictated by Tavon Gonzales III, MD Transcribed by Claudine Frank Authenticated and [facility]
[2022-10-14 14:03] LABS: Microscopic, Urine URINE MICROSCOPIC (MICROSCOPIC)
[2022-10-14 15:21] LABS: Appearance,Urine CLOUDY (Clear); Blood, Urine 2+ (Negative); Color,Urine BROWN (Yellow); Glucose,Urine (UA) Negative (Negative); Ketones,Urine Negative (Negative); Leukocyte Esterase,Urine 2+ (Negative); Nitrate,Urine POSITIVE (Negative); Protein,Urine 2+ (Negative); Specific Gravity, Urine >= 1.030 (1.005-1.030)
[2022-10-14 15:24] LABS: Bilirubin,Urine 2+ (Negative)
[2022-10-14 15:36] LABS: Bacteria,Urine 1+ /lpf; Squamous Epithelial Cell,Urine Occasional #/hpf (0-5); WBC,Urine TNTC #/hpf (0-3)
== END ==
PROVIDERS: PCP Internal Medicine Adolescent Medicine; Visit Provider Internal Medicine Adolescent Medicine
DX: N30.90 Cystitis, unspecified without hematuria (principal); M54.50 Low back pain, unspecified; B96.1 Klebsiella pneumoniae [K. pneumoniae] as the cause of diseases classified elsewhere
CPT/HCPCS: 72110; 72202; 81001; 87086; 87088; 87186

== ENCOUNTER → 2022-10-31 13:26 | Outpatient (CLI) | payer MEDICARE, OTHER, SELFPAY ==
--- NOTE | 2022-10-31 13:31 | CT_ITS ---
FINAL REPORT TECHNIQUE: Axial imaging of the lumbar spine was obtained without contrast. Sagittal and coronal reformatted images were also obtained and reviewed. This study was performed with techniques to keep radiation doses as low as reasonably achievable (ALARA). Individualized dose reduction techniques using automated exposure control or adjustment of mA and/or kV according to the patient's size were employed. CLINICAL HISTORY: Bilat LBP x 2 wks. Rt side worsened. Hx lung, adrenal cx COMPARISON: plain film 10/14/2022 FINDINGS: There is no fracture of the lumbar spine. There is a moderate T12 compression fracture which has progressed from the prior plain radiograph dated September 2022. The vertebral alignment is normal. There are degenerative changes throughout the lumbar spine. There is mild central canal stenosis at T12 with AP diameter of the thecal sac measuring 9 mm. L1-L2: No evidence of central canal stenosis or neural foraminal narrowing. L2-L3: Annular disc bulge, facet arthropathy, and osteophytes. Mild bilateral neural foraminal narrowing. L3-L4: Annular disc bulge and facet arthropathy. Mild bilateral neural foraminal narrowing. L4-L5: Annular disc bulge and facet arthropathy. Left paracentral disc protrusion. Probable left L5 nerve root impingement. Mild left neural foraminal narrowing. L5-S1: Annular disc bulge and facet arthropathy. Mild right and moderate left neural foraminal narrowing. Calcification left adrenal gland may represent post treatment change. IMPRESSION: Moderate worsened T12 compression fracture. Left paracentral disc protrusion and probable L5 nerve root impingement. Multilevel degenerative change. Reviewed, Interpreted and Dictated by Tavon Gonzales III, MD Transcribed by Ivis Hull Authenticated and [facility]
--- NOTE | 2022-10-31 13:31 | CT_ITS ---
FINAL REPORT TECHNIQUE: Axial images through the pelvis were performed by computed tomography without contrast. Sagittal and coronal reconstruction images were performed. This study was performed with techniques to keep radiation doses as low as reasonably achievable (ALARA). Individualized dose reduction techniques using automated exposure control or adjustment of mA and/or kV according to the patient's size were employed. CLINICAL HISTORY: Bilat LBP x 2 wks. Rt side worsened. Hx lung, adrenal cx. R/o bony metastases FINDINGS: CT PELVIS WITHOUT CONTRAST There is no acute fracture or dislocation. Bony alignment is normal. There are mild degenerative changes in both hips. There are postoperative changes in the rectosigmoid colon. No mass or abnormal fluid collection is identified. Soft tissues are unremarkable. IMPRESSION: Mild degenerative changes in both hips with no acute bony abnormality. Reviewed, Interpreted and Dictated by Tavon Gonzales III, MD Transcribed by Gwendolyn Sandhu Authenticated and [facility]
== END ==
PROVIDERS: PCP Internal Medicine Adolescent Medicine; Visit Provider Nurse Practitioner Family
DX: M54.9 Dorsalgia, unspecified (principal); M54.50 Low back pain, unspecified; C34.92 Malignant neoplasm of unspecified part of left bronchus or lung; G89.3 Neoplasm related pain (acute) (chronic)
CPT/HCPCS: 72131; 72192

== ENCOUNTER → 2022-11-08 12:28 | Outpatient (POV) | payer MEDICARE, OTHER, SELFPAY ==
[2022-11-08 12:47] VITALS: BP 115/49; PULSE 93; RESP 18; O2SAT 98; BMI 24.3
--- NOTE | 2022-11-08 14:22 | EXP.PAIN.OV ---
HPI Data of Consult Patient: new to practice Consult date: 11/08/22 Requesting Physician: Baylee Matson APRN Primary Care Provider: Mayur Barnhart MD Consult Narrative Reason for consult: Mid back/low back pain History of present illness: Ms. Meza is a 72 year old female who presents today as a new patient. She is a referral from Dr. Barnhart's office. Today she rates her pain a 10 out of 10. Patient states her pain is all in her mid to low back with some radiating symptoms to the right. Patient does describe this as a constant achy sensation with occasional stabbing pains. Patient denies any specific trauma or injury that started this. She states approximately 3 weeks ago she just started having mid/low back pain that progressively worsen. Patient did go to her primary care doctor who ordered the additional imaging and did show a compression fracture of T12. Patient does state the pain interferes with her ability to perform activities of daily living such as cooking and cleaning. She states she has difficulty even getting up out of bed. Patient does state that it took approximately 15 minutes to get up from a laying position due to the worsening pain symptoms. Patient does state the only thing that really helps her pain is however to lay down for periods of time. Patient has been prescribed gabapentin along with Percocet 10 mg 3 times a day. Patient denies any side effects from this medication. She states that it does help however only really to take the edge off. Patient has tried [id number] medications such as Tylenol along with heat that does provide temporary relief. Patient denies any recent physical therapy or chiropractor history. Patient states she has had urinary blocks in the past and these did provide significant relief. She is interested in any possible interventions we may be able to provide for additional pain improvement. Her Horacio is [phone]. Its been reviewed and appropriate. CC: Baylee Matson APRN [facility] Disclaimer: The information contained in this section may have been updated after the patient was seen, as this information can be updated by other users. Medical History (Updated 11/08/22 @ 14:25 by Baylee Matson APRN) Arthritis Cancer History of chemotherapy History of open sigmoidectomy History of radiation therapy HLD (hyperlipidemia) Hypertension Port-A-Cath in place UTI (urinary tract infection) Surgical History History of arthroscopy of both knees History of arthroscopy of left shoulder History of colonoscopy Hx of hysterectomy, total Hx of tubal ligation Family History Other Cancer Diabetes Hyperlipidemia Hypertension Stroke Thyroid disorder Social History (Updated 11/08/22 @ 13:29 by Radha Fernandes, RN) Smoking Status: Former smoker alcohol intake: never substance use type: denies use current occupational status: retired Travel in the last 8 weeks: None household members: family and none housing: house caffeine: Yes Review of Systems Review of Systems Review of systems:: pertinent systems reviewed and negative unless documented below Review of systems (narrative): Review of Systems: General: No recent weight changes, no fever, no sleep disturbances Respiratory: No cough, no shortness of air, no recurring pulmonary infections Cardiovascular/peripheral vascular: No chest pain, no palpitations, no edema, no shortness of breath Gastrointestinal: No new onset incontinence, normal bowel movements reported Genitourinary: No new onset incontinence Musculoskeletal: Low back pain Psychiatric: [Normal mood/affect] Neurological: [Denies weakness in extremities], [denies balance issues] Meds Home Medications and Allergies Home Medications Medication Instructions Recorded Confirmed Type aspirin 325 mg tablet 325 mg PO DAILY prevent 06
== END | disposition home or self-care (01) ==
PROVIDERS: PCP Internal Medicine Adolescent Medicine; Visit Provider Nurse Practitioner Family
DX: M51.16 Intervertebral disc disorders with radiculopathy, lumbar region (principal); M47.26 Other spondylosis with radiculopathy, lumbar region; M48.061 Spinal stenosis, lumbar region without neurogenic claudication
CPT/HCPCS: 99202; G0463

== ENCOUNTER 2022-11-15 07:05 | Day surgery (SDC) | payer MEDICARE, OTHER, SELFPAY ==
[2022-11-12 15:19] VITALS: BMI 24.3
[2022-11-15 07:28] VITALS: BP 113/71; PULSE 62; RESP 20; TEMP 36.2; O2SAT 98
[2022-11-15 07:52] LABS: Basophils % 0.4 % (0.1-2.0); Eosinophils # 0.2 K/mm3 (0.0-0.4); Eosinophils % 1.9 % (0.1-12.0); Hematocrit 39.8 % (37.0-47.0); Hemoglobin 12.7 g/dL (12.2-16.2); Lymphocytes # 1.8 K/mm3 (0.7-4.5); Lymphocytes % 18.8 % (10-50); Mean Corpuscular HGB Conc 31.8 g/dL (31.8-35.4); Mean Corpuscular Hemoglobin 26.8 pg (27.0-31.2); Mean Corpuscular Volume 84.2 fl (81-99); Mean Platelet Volume 8.4 fl (7.4-10.4); Monocytes # 0.6 K/mm3 (0.1-1.0); Monocytes % 5.8 % (1.7-9.3); Neutrophils % 73.1 % (37.0-80.0); Platelet Count 317 K/mm3 (142-424); Red Blood Count 4.73 M/mm3 (4.20-5.40); Red Cell Distribution Width 15.4 % (11.5-17.5); White Blood Count 9.6 K/mm3 (4.8-10.8)
[2022-11-15 07:59] LABS: Blood Urea Nitrogen 22 mg/dl (7-17); Calcium 8.8 mg/dl (8.4-10.2); Carbon Dioxide 29 mmol/L (22.0-30.0); Chloride 99 mmol/L (98-107); Creatinine Clearance Estimated 60 mL/min (50-200); Estimated Glomerular Filt Rate 71 ml/min (>60); GFR (African American) 86 ML/MIN (>60); Glucose 118 mg/dl (74-100); Sodium 136 mmol/L (136-145)
--- NOTE | 2022-11-15 09:06 | P.PN_ITS ---
[facility] Disclaimer: The information contained in this section may have been updated after the patient was seen, as this information can be updated by other users. Medical History Arthritis Cancer Diarrhea Emphysema/COPD History of chemotherapy History of open sigmoidectomy History of radiation therapy History of transient ischemic attack (TIA) HLD (hyperlipidemia) Hypertension Lung cancer Port-A-Cath in place UTI (urinary tract infection) Surgical History History of arthroscopy of both knees History of arthroscopy of left shoulder History of colonoscopy Hx of hysterectomy, total Hx of tubal ligation Family History Other Cancer Diabetes Hyperlipidemia Hypertension Stroke Thyroid disorder Social History Smoking Status: Former smoker alcohol intake: never substance use type: denies use current occupational status: retired Travel in the last 8 weeks: None household members: family and none housing: house caffeine: Yes [facility] Anesthesia Checklist Patient Identification Patient Identification: Arm Band and Verbal (Name & ) Structural Data Admitted From: Home Planned Operative Procedure/s: Kyphoplasty Consent for Planned Operative Procedure(s) Verified: Yes Verified Documents: Surgical Consent NPO Status Verified Time NPO: 00:00 Chart Verification Results Verified: CBC and BMP Additional verifications Anesthesia Reactions: No Hx Blood Transfusions: No Blood Transfusion Reaction: No Airway Assessment C-Spine Mobility Assessed: Yes TMJ Mobility Assessed: Yes Dentition: Good Dentition Neurological Assessment Level of Consciousness: Awake, Alert and Appropriate Anesthesia Plan Anesthesia Risk discussed: Yes ASA Class: III Anesthesia Type: MAC
[2022-11-15 10:42] VITALS: TEMP 43
[2022-11-15 11:20] VITALS: BP 136/69; PULSE 76; RESP 16; TEMP 36.6; O2SAT 95
--- NOTE | 2022-11-15 11:26 | P.OP_ITS ---
Date of procedure: 11/15/22 Pre-op Diagnosis:: T12 compression fracture age-related osteoporosis Post-op Diagnosis:: Same Procedure performed:: T12 kyphoplasty Surgeon:: Dex Ron MD RESIDENT PROGRAM SPECIALIST:: Miller Phillips Anesthesia: MAC Estimated blood loss (mL): 5 Clinical Note:: This patient is a pleasant 72-year-old white female who has a T12 compression fracture that was discovered a few weeks ago. She does not note any inciting event. This was found on MRI. She has been braced. She continues to have significant pain. She presents for T12 kyphoplasty today. She does have age- related osteoporosis which contributed to her fracture. Operative findings:: None Operative note:: Informed consent was obtained and risks and benefits of the procedure was explained to the patient. Patient was taken to the OR and was placed prone on the procedure table. The patient was prepped and draped in sterile fashion. I used 2 C arms for AP and lateral view of the [T12] vertebral body. The skin and subcutaneous tissues were anesthetized using lidocaine. Bone access trochars were placed through the LEFT and RIGHT pedicle and advanced into the vertebral body. After accessing the vertebral body a balloon was inserted first on the LEFT side followed by the RIGHT side with approximately 3 mL of contrast placed in each balloon with good insufflation. After adequate spread of contrast through the balloon, the balloons were deflated and cement was introduced first on the LEFT side with placement of approximately 3-1/2 mL of cement with good spread throughout the vertebral body and then on the RIGHT side was approximately 3 1/2 mL cement with good spread throughout the vertebral body. There was no extrusion of cement through the lateral lorenzo, anterior or posterior lorenzo. Also no extrusion through superior or inferior lorenzo. The bone access trochars were removed and dressing was placed. The patient was taken back to recovery in stable condition. She had good resolution of her back pain 5 minutes after the procedure. She tolerated the procedure well with no complications and was discharged home neurologically intact. Patient tolerated the procedure well she was discharged home neurologically intact with good relief of pain symptoms. She is to continue wearing her brace. We will follow-up with her in clinic in 1 to 2 weeks. Condition: stable Disposition: PACU Complications:: None
[2022-11-15 11:35] VITALS: BP 143/72; PULSE 68; RESP 17; O2SAT 95
[2022-11-15 11:50] VITALS: BP 119/66; PULSE 68; RESP 16; O2SAT 93
== END 2022-11-15 11:50 | disposition home or self-care (01) ==
PROVIDERS: PCP Internal Medicine Adolescent Medicine; Visit Provider Anesthesiology
DX: M80.08XA Age-related osteoporosis with current pathological fracture, vertebra(e), initial encounter for fracture (principal); Z79.899 Other long term (current) drug therapy
CPT/HCPCS: 22513; 80048; 85025; 96374; J1642; J2405

== ENCOUNTER → 2022-11-19 11:25 | Outpatient (POV) | payer MEDICARE, OTHER, SELFPAY ==
[2022-11-19 11:40] VITALS: BP 115/58; PULSE 82; RESP 20; TEMP 36.6; O2SAT 97; BMI 24.3
--- NOTE | 2022-11-19 12:17 | MR_ITS ---
FINAL REPORT TECHNIQUE: Multiplanar and multisequence imaging of the lumbar spine was obtained without contrast. CLINICAL HISTORY: MID BACK PAIN COMPARISON: CT dated 10/31/2022 FINDINGS: There is normal alignment of the lumbar vertebral bodies. There is a fracture of T12 with mild edema on STIR images. This was present on the prior CT dated 10/31/2022, likely subacute. The spinal cord ends at the level of L1. There is normal signal intensity within the substance of the distal spinal cord. Bone marrow signal intensity is normal. No acute paraspinal abnormality is identified. T11-12: There is retropulsion, related to fracture which causes [id number] central canal stenosis. T12-L1: An annular disc bulge is present. There is no central stenosis or neural foraminal narrowing. L1-2: There is no focal disc herniation, central canal stenosis or neuroforaminal narrowing. L2-3: An annular disc bulge is present with degenerative endplate changes and facet osteoarthropathy. There is mild right greater than left neural foraminal narrowing. L3-4: An annular disc bulge is present with degenerative endplate changes and facet osteoarthropathy. There is mild left greater than right neural foraminal narrowing. L4-5: Left paracentral disc protrusion is present. There is mild central stenosis. There is mild right and moderate left neural foraminal narrowing. L5-S1: An annular disc bulge is present with degenerative endplate changes and facet osteoarthropathy. There is mild right and moderate left neural foraminal narrowing. IMPRESSION: T12 fracture, likely subacute. Multilevel degenerative disease. Left paracentral disc protrusion at L4-5. Reviewed, Interpreted and Dictated by Sarah Larson MD Transcribed by Claudine Frank Authenticated and [facility]
--- NOTE | 2022-11-19 12:56 | P.PCN_ITS ---
Procedure Anesthesiologist:: Abdifatah Russell CRNA Complications:: None
--- NOTE | 2022-11-19 12:56 | EXP.PAIN.PRO ---
Procedure Anesthesiologist:: Abdifatah Russell CRNA Complications:: None
--- NOTE | 2022-11-19 12:56 | EXP.PAIN.SOA ---
[facility] Pain Management SOAP Note Subjective:: This patient is a pleasant 72-year-old female who comes our clinic today for follow-up visit regarding sudden onset of lumbar back pain following recent T12 kyphoplasty on 11/15/2022. Patient states the pain is 3 to 4 inches below the incision of the previous kyphoplasty. She rates the pain 9/10. She describes it as constant, dull, burning at times. There was no trauma or accident. Objective:: Patient is awake alert [place] x3. In obvious pain regarding lumbar spine. Deep tendon reflexes upper lower extremities normal. Motor strength upper and lower extremities normal. There is no gross sensory deficit. Gait is normal. Assessment:: Degenerative disc disease lumbar spine multilevels. Osteoporosis. Status post kyphoplasty T12 on 11/15/2022. Sudden onset lumbar back pain. Plan:: Discussed in detail with the patient regarding treatment options. We will start with stat lumbar MRI to rule out additional vertebral fracture. Also, discussed with her lumbar epidural steroid injection. Patient will follow-up DOUG after having lumbar MRI. I offered the patient some pain medicine. She declined. She reports she has medications at home that she can take for pain. [facility] Disclaimer: The information contained in this section may have been updated after the patient was seen, as this information can be updated by other users. Medical History Arthritis Cancer Diarrhea Emphysema/COPD History of chemotherapy History of open sigmoidectomy History of radiation therapy History of transient ischemic attack (TIA) HLD (hyperlipidemia) Hypertension Lung cancer Port-A-Cath in place UTI (urinary tract infection) Surgical History History of arthroscopy of both knees History of arthroscopy of left shoulder History of colonoscopy Hx of hysterectomy, total Hx of tubal ligation Family History Other Cancer Diabetes Hyperlipidemia Hypertension Stroke Thyroid disorder Social History Smoking Status: Former smoker alcohol intake: never substance use type: denies use current occupational status: other Travel in the last 8 weeks: None household members: family and none housing: house caffeine: Yes
== END | disposition home or self-care (01) ==
LOC: SC.PAIN 12:56 → RAD 12:59
PROVIDERS: PCP Internal Medicine Adolescent Medicine; Visit Provider Nurse Anesthetist, Certified Registered
DX: M54.50 Low back pain, unspecified (principal)
CPT/HCPCS: 72148; 76376

== ENCOUNTER 2022-11-26 14:11 | Day surgery (SDC) | payer MEDICARE, OTHER, SELFPAY ==
[2022-11-26 14:35] VITALS: BP 170/82; PULSE 68; BMI 25.0
--- NOTE | 2022-11-26 14:37 | EXP.PAIN.PRO ---
Procedure Date: 11/26/22 Time: 14:40 Anesthesiologist:: Abdifatah Russell CRNA Complications:: None Pre-procedure Diagnosis:: Degenerative disc disease lumbar spine multilevels. Lumbar radiculopathy. Post-procedure Diagnosis:: Same. Indications for Procedure:: Patient is a very pleasant 72-year-old female that comes our clinic today for lumbar epidural steroid injection at the L4-5 level. Patient has had low back pain for quite some time she describes as constant, dull, aching. She had a recent T12 kyphoplasty. This pain is described as being 3 to 4 inches below her previous kyphoplasty. She rates the pain 7/10. Procedure Details:: Procedure: Lumbar epidural steroid injection under fluoroscopy Informed consent was obtained and the risks and benefits of the procedure were explained to the patient. The patient was taken to the procedure room and noninvasive monitors placed, including noninvasive blood pressure cuff and pulse oximeter. The back was viewed using C-arm Fluoroscopy and prepped using Chloraprep as a cleansing solution and the L4-L5 interspace was palpated. Skin and subcutaneous tissues were anesthetized using lidocaine 1.5% and a 25-gauge needle. After this, an 18-gauge Touhy epidural needle was placed into the L4-L5 interspace and advanced using fluoroscopic guidance and loss of resistance to air until the epidural space was encountered. After confirmation of needle placement in the epidural space, with dye, a solution containing normal saline, 3 mL and Depo-Medrol 80 mg were incrementally injected into the lumbar epidural space. The patient tolerated the procedure well with no complications. The patient was observed in the Pain Clinic and then discharged home neurologically intact. Plan and Disposition:: Patient was discharged without incident.
[2022-11-26 14:39] VITALS: BP 160/66; PULSE 70; RESP 18; O2SAT 97
[2022-11-26 14:40] VITALS: BP 160/66; PULSE 70; RESP 18; O2SAT 97
[2022-11-26 14:45] VITALS: BP 177/68; PULSE 67; RESP 18; TEMP 36.4; O2SAT 98
== END 2022-11-26 14:45 | disposition home or self-care (01) ==
PROVIDERS: PCP Internal Medicine Adolescent Medicine; Visit Provider Nurse Anesthetist, Certified Registered
DX: M51.16 Intervertebral disc disorders with radiculopathy, lumbar region (principal)
CPT/HCPCS: 62323; J1030

== ENCOUNTER → 2022-12-13 10:03 | Outpatient (POV) | payer MEDICARE, OTHER, SELFPAY ==
--- NOTE | 2022-12-13 10:43 | EXP.PAIN.SOA ---
[facility] Pain Management SOAP Note Subjective:: This patient is a very pleasant 72-year-old female that comes our clinic today for follow-up visit after receiving a lumbar epidural steroid injection at the L4-5 level. She reports 50 to 70% improvement terms of her overall bilateral hip and leg radicular symptoms. Today her main complaint is low back pain she describes as constant, dull, sharp and stabbing at times. This is across her entire low back. Patient has bilateral hip pain at times with this. Patient has difficulty with ambulating any distance. She has difficulty transitioning from sitting to standing. Patient has extreme difficulty with flexion and especially with extension. Patient's lumbar MRI shows multilevel lumbar degenerative disc. Lumbar spondylosis. Multilevel lumbar facet arthropathy. Lumbar disc bulge multilevel. Patient does take 1 Percocet 10 mg daily. This comes from her PCP. Her Horacio #[id number] has been reviewed and appropriate. She rates her pain today 10/10. Objective:: Patient is awake alert [place] x3. In no acute distress. Flex tension lumbar spine very guarded secondary to pain. Deep tendon reflexes upper and lower extremities normal. Motor strength upper and lower extremities normal. There is no gross sensory deficit. Gait is antalgic. Patient requires a walker for stability Assessment:: Due to disc disease lumbar spine multilevels. Lumbar radiculopathy. Lumbar spondylosis. Multilevel lumbar facet arthropathy. Multilevel lumbar disc bulge. Plan:: I discussed in detail with the patient regarding medial branch blocks/facet blocks lumbar L4-5, L5-S1 bilaterally. She wishes to proceed. [facility] Disclaimer: The information contained in this section may have been updated after the patient was seen, as this information can be updated by other users. Medical History Arthritis Cancer Diarrhea Emphysema/COPD History of chemotherapy History of open sigmoidectomy History of radiation therapy History of transient ischemic attack (TIA) HLD (hyperlipidemia) Hypertension Lung cancer Port-A-Cath in place UTI (urinary tract infection) Surgical History History of arthroscopy of both knees History of arthroscopy of left shoulder History of colonoscopy Hx of hysterectomy, total Hx of tubal ligation Family History Other Cancer Diabetes Hyperlipidemia Hypertension Stroke Thyroid disorder Social History Smoking Status: Former smoker alcohol intake: never substance use type: denies use current occupational status: other Travel in the last 8 weeks: None household members: family and none housing: house caffeine: Yes
[2022-12-13 10:46] VITALS: BP 129/48; PULSE 76; RESP 18; O2SAT 98; BMI 26.3
== END ==
PROVIDERS: PCP Internal Medicine Adolescent Medicine; Visit Provider Nurse Anesthetist, Certified Registered
DX: M51.16 Intervertebral disc disorders with radiculopathy, lumbar region (principal); M47.26 Other spondylosis with radiculopathy, lumbar region
CPT/HCPCS: 99212; G0463

== ENCOUNTER 2022-12-24 11:18 | Day surgery (SDC) | payer MEDICARE, OTHER, SELFPAY ==
[2022-12-24 11:37] VITALS: BP 144/67; PULSE 83; RESP 18; TEMP 36.4; O2SAT 97; BMI 25.9
[2022-12-24 11:44] VITALS: BP 132/42; PULSE 80; RESP 18; O2SAT 97
--- NOTE | 2022-12-24 11:44 | P.PCN_ITS ---
Procedure Date: 12/24/22 Time: 11:40 Anesthesiologist:: Abdifatah Russell CRNA Complications:: None Pre-procedure Diagnosis:: Degenerative disc disease lumbar spine multilevels. Lumbar radiculopathy. Multilevel disc bulge. Multilevel spondylosis. Multilevel facet arthropathy Post-procedure Diagnosis:: Same. Indications for Procedure:: Patient is a very pleasant 72-year-old female comes our clinic today for medial branch blocks/facet block lumbar L4-5, L5-S1 bilaterally. Patient complains of low back pain when sitting and/or standing for any length of time. Ambulating seems to help with pain for short time. Patient describes the pain as constant, dull, aching. Lying in bed is difficult unless on her side in the position. She rates her pain today 10/10. Procedure Details:: Informed consent was obtained and the risk and benefits of the procedure was explained to the patient. Patient was taken to the procedure room where noninvasive monitors were placed, including noninvasive blood pressure cuff as well as pulse oximeter. The area over the lumbar spine was cleansed using chlorhexidine as a cleansing solution. I anesthetized the skin and subcutaneous tissues with 1% Lidocaine. I placed 22-gauge spinal needles into the facet joint/ medial branches of L4-L5, and L5-S1 bilaterally. Needle placement was confirmed with fluoroscopy. After confirmation of needle placement, each site was injected with 1 mL of 1% lidocaine and 0.25 % Marcaine and 10 mg of Depo- Medrol. A total of 80 mg of depo medrol was used for bilateral medial branch blocks of L4-L5, and L5-S1 bilaterally. Patient tolerated the procedure without difficulty. There were no complications. Plan and Disposition:: Patient was discharged without incident.
== END 2022-12-24 11:44 | disposition home or self-care (01) ==
PROVIDERS: PCP Internal Medicine Adolescent Medicine; Visit Provider Nurse Anesthetist, Certified Registered
DX: M51.16 Intervertebral disc disorders with radiculopathy, lumbar region (principal); M47.896 Other spondylosis, lumbar region
CPT/HCPCS: 64493; 64494; J1040

== ENCOUNTER → 2023-01-07 09:15 | Outpatient (CLI) | payer MEDICARE, OTHER, SELFPAY ==
--- NOTE | 2023-01-07 09:39 | XR_ITS ---
FINAL REPORT TECHNIQUE: Bone densitometry calculations of the lumbar spine and left hip were obtained. CLINICAL HISTORY: . OSTEOPOROSIS FINDINGS: Using L1-4, the bone mineral density of the spine is 0.712 g/cm2, corresponding to T-score of -3.0. Using the left hip, the bone mineral density of the femoral neck is 0.455 g/cm2, corresponding to a T-score of -3.5. NOTE: T-score: Standard deviation compared with peak bone mass of young adult mean. *Following the recommendations of the International Society of Bone Densitometry, classification of hip BMD is based on the lower of two T-scores; total hip or femoral neck. IMPRESSION: Osteoporosis: Lowest T-score is at or below -2.5. This patient''s T-score meets the World Health Organization criteria for osteoporosis. Reviewed, Interpreted and Dictated by Tavon Gonzales III, MD Transcribed by Yarely Espinoza Authenticated and [facility]
== END ==
PROVIDERS: PCP Internal Medicine Adolescent Medicine; Visit Provider Nurse Practitioner Family
DX: Z78.0 Asymptomatic menopausal state (principal); M81.0 Age-related osteoporosis without current pathological fracture
CPT/HCPCS: 77080

== ENCOUNTER → 2023-01-08 14:17 | Outpatient (POV) | payer MEDICARE, OTHER, SELFPAY ==
[2023-01-08 14:25] VITALS: BP 112/72; PULSE 84; RESP 20; BMI 28.4
--- NOTE | 2023-01-08 14:37 | EXP.PAIN.SOA ---
[facility] Pain Management SOAP Note Subjective:: Patient is a pleasant 72-year-old female who presents today for follow-up of medial branch block of lumbar spine bilaterally L4-L5 and L5-S1 on 12/24/2022. We are currently treating the patient for degenerative disc disease of lumbar spine multilevels with lumbar radiculopathy symptoms, lumbar spondylosis, multilevel lumbar facet arthropathy, multilevel lumbar disc bulge. Today she states she has had at least 60% improvement and feels like it is still continuing to provide additional relief. She states that she has had improvement of her overall pain symptoms and she is finding it easier to get out of bed as well as do activities with less pain. Patient does mention that this morning she did actually have pain that radiated down both her legs to her feet. Patient states that this woke her up and she got up and sat in a chair and took a pain pill and it did resolve. Patient states she has never had this pain before and is unsure whether or not what caused it. Patient is currently managed with Percocet 10 mg 3 times a day, gabapentin 100 mg 3 times a day from her primary care doctor's office and compounding cream from our office. She does state that the compounding cream does provide additional relief. Her Horacio is [id number]. Its been reviewed and appropriate. Review of Systems: General: No recent weight changes, no fever, no sleep disturbances Respiratory: No cough, no shortness of air, no recurring pulmonary infections Cardiovascular/peripheral vascular: No chest pain, no palpitations, no edema, no shortness of breath Gastrointestinal: No new onset incontinence, normal bowel movements reported Genitourinary: No new onset incontinence Musculoskeletal: Low back pain Psychiatric: [Normal mood/affect] Neurological: [Denies weakness in extremities], [denies balance issues] Objective:: Physical Exam: General: Alert and oriented x3, no acute distress, pleasant and cooperative Lungs: Respirations even and unlabored, symmetrical chest expansion Eyes: PERRL Musculoskeletal: Flexion and extension of lumbar [spine] somewhat guarded secondary to pain, [antalgic gait noted] Neurological: Speech clear, no gross sensory deficit Assessment:: degenerative disc disease of lumbar spine multilevels with lumbar radiculopathy symptoms, lumbar spondylosis, multilevel lumbar facet arthropathy, multilevel lumbar disc bulge Plan:: Patient has had at least 60% improvement following her medial branch block and does not require any additional injective therapy at this time. I have counseled the patient that if she does continue to have the pain that runs down her bilateral legs to her feet to contact our office and that she may get beneficial help with a lumbar epidural. Patient will follow-up in 1 month for reevaluation of symptoms and plan of care. Patient has been instructed to contact the clinic with any concerns before the next appointment. Dr. Ron has reviewed this note and agrees with this plan of care. This note was dictated using voice recognition software and make contain errors or omissions. [facility] Disclaimer: The information contained in this section may have been updated after the patient was seen, as this information can be updated by other users. Medical History Arthritis Cancer Diarrhea Emphysema/COPD History of chemotherapy History of open sigmoidectomy History of radiation therapy History of transient ischemic attack (TIA) HLD (hyperlipidemia) Hypertension Lung cancer Port-A-Cath in place UTI (urinary tract infection) Surgical History History of arthroscopy of both knees History of arthroscopy of left shoulder History of colonoscopy Hx of hysterectomy, total Hx of tubal ligation Family History Other Cancer Diabetes Hype
== END ==
PROVIDERS: PCP Internal Medicine Adolescent Medicine; Visit Provider Nurse Practitioner Family
DX: M51.16 Intervertebral disc disorders with radiculopathy, lumbar region (principal); M47.26 Other spondylosis with radiculopathy, lumbar region
CPT/HCPCS: 99212; G0463

== ENCOUNTER 2023-01-30 11:22 | Outpatient (CLI) | payer MEDICARE, OTHER, SELFPAY ==
[2023-01-30 11:45] VITALS: BP 134/71; PULSE 87; RESP 16; TEMP 36.5; O2SAT 97
[2023-01-30 11:47] VITALS: BMI 28.6
[2023-01-30 12:45] VITALS: BP 146/86; PULSE 73; RESP 16
== END 2023-01-30 12:55 | disposition home or self-care (01) ==
LOC: INF 11:23
PROVIDERS: PCP Internal Medicine Adolescent Medicine; Visit Provider Internal Medicine Adolescent Medicine
DX: E86.0 Dehydration (principal); N39.0 Urinary tract infection, site not specified
CPT/HCPCS: 87086; 96360; 96367; J0696; J1642

== ENCOUNTER → 2023-02-06 14:26 | Outpatient (POV) | payer MEDICARE, OTHER, SELFPAY ==
--- NOTE | 2023-02-06 14:32 | EXP.PAIN.SOA ---
[facility] Pain Management SOAP Note Subjective:: Patient is a pleasant 72-year-old female who presents today for follow-up. We are currently treating the patient for degenerative disc disease of lumbar spine multilevels with lumbar radiculopathy symptoms, lumbar spondylosis, multilevel lumbar facet arthropathy, multilevel lumbar disc bulge.? Today she rates her pain a 4 out of 10. Patient denies any new trauma or injury. Patient denies any change location or type of pain she experiences. She states she continues to have pain in her low back and that she frequently cannot walk long distances due to the pain. Patient previously had a medial branch block of her lumbar spine bilaterally L4-L5 and L5-S1 on 12/24/2022 that provided approximately 60% improvement or more. She does state that she feels like the injection is still helping some however she states she also has urinary tract issues on a regular basis. Patient did used to go to for urology however she states that at her last visit the urologist stated that she would no longer be with the practice. 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 Patient states that in the past she did get a pudendal nerve block that did provide significant relief approximately 2 years ago. Patient states that she does feel like this block is wearing off and makes her catch her breath. Patient is asking whether or not this is a injection that we possibly do here at our office. she is currently managed with Percocet 10 mg 3 times a day, gabapentin 100 mg 3 times a day from her primary care doctor's office and compounding cream from our office.? Her Horacio is [id number]. Its been reviewed and appropriate. Review of Systems: General: No recent weight changes, no fever, no sleep disturbances Respiratory: No cough, no shortness of air, no recurring pulmonary infections Cardiovascular/peripheral vascular: No chest pain, no palpitations,? no edema, no shortness of breath Gastrointestinal: No new onset incontinence, normal bowel movements reported Genitourinary: No new onset incontinence Musculoskeletal: Low back pain, bladder pain Psychiatric: [Normal mood/affect] Neurological: [Denies weakness in extremities], [denies balance issues] Objective:: Physical Exam: General: Alert and oriented x3, no acute distress, pleasant and cooperative Lungs: Respirations even and unlabored, symmetrical chest expansion Eyes: PERRL Musculoskeletal: Flexion and extension of lumbar [spine] somewhat guarded secondary to pain, [antalgic gait noted] Neurological: Speech clear, no gross sensory deficit Assessment:: degenerative disc disease of lumbar spine multilevels with lumbar radiculopathy symptoms, lumbar spondylosis, multilevel lumbar facet arthropathy, multilevel lumbar disc bulge Plan:: At this time the patient would like to wait before having her next lumbar medial branch block. I have discussed with the patient that at our upcoming visit I will let her know if the pudendal block is something that we could possibly do at our office. I have also counseled the patient to let me know if she needs a referral for a different neurologist and discussed with her that she may benefit from Botox injections for her interstitial cystitis. Patient will return to clinic in 1 month for reevaluation of symptoms and plan of care. Patient has been instructed to contact the clinic with any concerns before the next appointment. Dr. Ron has reviewed this note and agrees with this plan of care. This note was dictated using voice recognition software and make contain errors or omissions. [facility] Disclaimer: The information contained in this section may have been updated after the patient was seen, as this information can be updated by other users. Medical History Arthritis Cancer Diarrhea Emphysema/COPD History of chemotherapy History of open sigmoidectomy
[2023-02-06 15:19] VITALS: BP 127/32; PULSE 79; RESP 18; TEMP 36.9; O2SAT 97; BMI 28.6
== END ==
PROVIDERS: Visit Provider Nurse Practitioner Family
DX: M51.16 Intervertebral disc disorders with radiculopathy, lumbar region (principal); M47.26 Other spondylosis with radiculopathy, lumbar region
CPT/HCPCS: 99212; G0463

== ENCOUNTER → 2023-03-07 11:25 | Outpatient (POV) | payer MEDICARE, OTHER, SELFPAY ==
[2023-03-07 12:03] VITALS: BP 131/49; PULSE 84; RESP 18; O2SAT 97; BMI 28.6
--- NOTE | 2023-03-07 12:19 | EXP.PAIN.SOA ---
[facility] Pain Management SOAP Note Subjective:: This patient is a very pleasant 72-year-old female comes our clinic today for a follow-up visit. She is currently being treated by our office for chronic low back pain she describes as constant, dull, aching. She also describes low back pain as tired when standing or ambulating. Patient has degenerative disc lumbar spine multilevels. Lumbar radiculopathy. Lumbar spondylosis. Multilevel lumbar facet arthropathy. Multilevel lumbar disc bulge. Today she rates her pain 4/10. Patient reports she has had lumbar medial branch blocks/facet blocks L4-5, L5-S1 in the past. She reports this did give her some relief however did not last for longer than 3 to 4 days. Upon examination patient has extreme point tenderness over the bilateral sacroiliac joints. Patient has difficulty transitioning from sitting to standing. Patient takes gabapentin 300 mg 1 p.o. 3 times daily from her primary care doctor. Also, Percocet 10 mg 1 p.o. 3 times daily from her primary care doctor. Her Horacio #[id number] is been reviewed and appropriate. Patient has positive Gaenslen's tests bilaterally. Positive Derek's test bilaterally. Positive sacroiliac joint compression test bilaterally. Patient has tried and failed conservative treatment such as NSAIDs, acetaminophen, home exercise program. She has difficulty doing chores in the house such as sweeping, dishes, cooking. Objective:: Patient is awake alert [place] x3. In no acute distress. Flexion-extension lumbar spine somewhat guarded secondary to pain. Deep tendon reflexes upper lower extremities normal. Motor strength upper and lower extremities normal. There is no gross sensory deficit. Gait is normal. Assessment:: Degenerative disc lumbar spine multilevels. Lumbar radiculopathy. Lumbar spondylosis. Multilevel lumbar disc bulge. Bilateral sacroiliitis. Plan:: Discussed in detail with the patient regarding bilateral sacroiliac joint injections. Answered the patient's questions. She wishes to proceed. [facility] Disclaimer: The information contained in this section may have been updated after the patient was seen, as this information can be updated by other users. Medical History Arthritis Cancer Diarrhea Emphysema/COPD History of chemotherapy History of open sigmoidectomy History of radiation therapy History of transient ischemic attack (TIA) HLD (hyperlipidemia) Hypertension Lung cancer Port-A-Cath in place UTI (urinary tract infection) Surgical History History of arthroscopy of both knees History of arthroscopy of left shoulder History of colonoscopy Hx of hysterectomy, total Hx of tubal ligation Family History Other Cancer Diabetes Hyperlipidemia Hypertension Stroke Thyroid disorder Social History Smoking Status: Former smoker alcohol intake: never substance use type: denies use current occupational status: retired Travel in the last 8 weeks: None household members: family and none housing: house caffeine: Yes
== END ==
PROVIDERS: PCP Internal Medicine Adolescent Medicine; Visit Provider Nurse Practitioner Family
DX: M51.16 Intervertebral disc disorders with radiculopathy, lumbar region (principal); M47.26 Other spondylosis with radiculopathy, lumbar region; M46.1 Sacroiliitis, not elsewhere classified
CPT/HCPCS: 99212; G0463

== ENCOUNTER → 2023-03-14 12:40 | Outpatient (CLI) | payer MEDICARE, OTHER, SELFPAY | PROVIDERS: PCP Internal Medicine Adolescent Medicine; Visit Provider Physician Assistant | DX: R30.0 Dysuria (principal) | CPT/HCPCS: 87086 ==

== ENCOUNTER 2023-03-25 13:16 | Day surgery (SDC) | payer MEDICARE, OTHER, SELFPAY ==
[2023-03-25 13:30] VITALS: BP 126/74; PULSE 75; RESP 18; O2SAT 96; BMI 29.2
--- NOTE | 2023-03-25 13:44 | P.PCN_ITS ---
Procedure Date: 03/25/23 Time: 13:50 Anesthesiologist:: Abdifatah Russell CRNA Complications:: None Pre-procedure Diagnosis:: Bilateral sacroiliitis Post-procedure Diagnosis:: Same. Indications for Procedure:: Very pleasant 72-year-old female comes our clinic today for bilateral sacroiliac joint injections. Patient has extreme point tenderness upon evaluation over the bilateral sacroiliac joints. Patient has difficulty transitioning from sitting to standing. She describes her low lumbar bilateral posterior hip pain is constant, dull, aching. She reports pain intensifies with ambulation. Procedure Details:: Procedure: Bilateral sacroiliac joint injections under fluoroscopy Informed consent was obtained and the risks and benefits of the procedure were explained to the patient.~ The patient was taken to the procedure room and noninvasive monitors were placed including a noninvasive blood pressure cuff and pulse oximeter.~ The patient was placed prone on the procedure table. Both hips were cleansed using Betadine as a cleansing solution. C-arm fluoroscopy was used to view the right sacroiliac joint.~ The skin and subcutaneous tissues were anesthetized using lidocaine 1.5% and a 25-gauge needle.~ After this, a 22-gauge spinal needle was inserted under fluoroscopic guidance into the inferior aspect of the right sacroiliac joint.~ Omnipaque dye was injected and good spread was seen throughout the joint.~ After this, approximately 5 mL of bupivacaine, 0.25% and Depo-Medrol, 40 mg was incrementally injected into the right sacroiliac joint. We then moved to the left sacroiliac joint.~ The skin and subcutaneous tissues were anesthetized using lidocaine 1.5% and a 25-gauge needle.~ After this, a 22- gauge spinal needle was inserted under fluoroscopic guidance into the inferior aspect of the left sacroiliac joint.~ Omnipaque dye was injected and good spread was seen throughout the joint. After this, approximately 5 mL of bupivacaine, 0.25% and Depo-Medrol, 40 mg was incrementally injected into the left sacroiliac joint.~ The patient tolerated the procedure well with no complications. The patient was observed in the Pain Clinic and then was discharged home neurologically intact. Plan and Disposition:: Patient was discharged without incident.
[2023-03-25 13:55] VITALS: BP 132/54; PULSE 74; RESP 18; O2SAT 96
== END 2023-03-25 13:55 | disposition home or self-care (01) ==
PROVIDERS: PCP Internal Medicine Adolescent Medicine; Visit Provider Nurse Anesthetist, Certified Registered
DX: M46.1 Sacroiliitis, not elsewhere classified (principal)
CPT/HCPCS: 27096; G0260; J1040

== ENCOUNTER → 2023-03-31 13:31 | Outpatient (POV) | payer MEDICARE, OTHER, SELFPAY ==
--- NOTE | 2023-03-31 14:06 | EXP.PAIN.SOA ---
[facility] Pain Management SOAP Note Subjective:: Patient is a pleasant 72-year-old female who presents today for follow-up of bilateral SI injections on 03/25/2023. We are currently treating the patient for degenerative disc disease of lumbar spine with lumbar radiculopathy symptoms, lumbar spondylosis, lumbar facet arthropathy, sacroiliitis, status post kyphoplasty T12. Today she rates her pain a 10 out of 10. Patient states over the weekend she had debilitating, severe pain in her low back that is worse with bending, twisting or lifting. Patient does present today with her daughter present and states that about a week ago she did pick up and delivery driver a large bag of potting soil and is unsure if this is possibly related. Patient denies any additional trauma or injury such as a fall. She does state it interferes with her ability perform activities of daily living such as cooking or cleaning or even simple ambulation. Patient states that she has difficulty getting up out of bed. She states she feels like she is barely able to move due to the worsening pain symptoms. Patient does state that she did not notice significant relief following her SI injections and may be only had a couple hours of improvements however minimal. Patient is currently managed with gabapentin 300 mg 3 times a day however she states she does not believe she has been taking this medication. Patient is also prescribed Percocet 10 mg 3 times a day from her primary care doctor. She does state that this medication helps take the edge off however is not doing much more than that. Her Horacio has been reviewed and is appropriate. Review of Systems: General: No recent weight changes, no fever, no sleep disturbances Respiratory: No cough, no shortness of air, no recurring pulmonary infections Cardiovascular/peripheral vascular: No chest pain, no palpitations, no edema, no shortness of breath Gastrointestinal: No new onset incontinence, normal bowel movements reported Genitourinary: No new onset incontinence Musculoskeletal: Low back pain Psychiatric: [Normal mood/affect] Neurological: [Denies weakness in extremities], [denies balance issues] Objective:: Physical Exam: General: Alert and oriented x3, no acute distress, pleasant and cooperative Lungs: Respirations even and unlabored, symmetrical chest expansion Eyes: PERRL Musculoskeletal: Flexion and extension of lumbar [spine] somewhat guarded secondary to pain, [antalgic gait noted] positive Kemps test Neurological: Speech clear, no gross sensory deficit FINDINGS: 5 views of the lumbar spine were obtained. There is a moderate T12 compression fracture which has undergone kyphoplasty since the prior films of September 2022. The overall compression of the T12 vertebral body is greater than noted on the prior films. There is mild compression of the T11 vertebral body which was not present on the prior examination. Vascular calcifications are present. There is a mild levoscoliosis of the lumbar spine. IMPRESSION: Moderate T12 compression fracture post kyphoplasty since the prior films of September 2022. There is increased loss of vertebral body height since the prior plain films. A mild T11 compression fracture is now present, new since September. Reviewed, Interpreted and Dictated by Tavon Gonzales III, MD Transcribed by Samantha Mistry Authenticated and [facility] Assessment:: Degenerative disc disease of lumbar spine with lumbar radiculopathy symptoms, lumbar spondylosis, lumbar facet arthropathy, sacroiliitis, status post kyphoplasty T12 Plan:: Patient is experiencing significant pain in her low back with limited range of motion. Patient had a positive Kemps test. Patient previously has had a lumbar medial branch block that did provide at least 60% improvement lasting more than a month. I have discussed with the patient that she may benefit from repeating this i
[2023-03-31 14:41] VITALS: BP 151/76; PULSE 72; RESP 18; O2SAT 98; BMI 64.5
== END | disposition home or self-care (01) ==
PROVIDERS: PCP Internal Medicine Adolescent Medicine; Visit Provider Nurse Practitioner Family
DX: M51.16 Intervertebral disc disorders with radiculopathy, lumbar region (principal); M47.26 Other spondylosis with radiculopathy, lumbar region; M46.1 Sacroiliitis, not elsewhere classified; Z98.1 Arthrodesis status; S22.080A Wedge compression fracture of T11-T12 vertebra, initial encounter for closed fracture
CPT/HCPCS: 72110; 99212; G0463

== ENCOUNTER → 2023-03-31 14:09 | Outpatient (CLI) | payer MEDICARE, OTHER, SELFPAY ==
--- NOTE | 2023-03-31 14:27 | XR_ITS ---
FINAL REPORT CLINICAL HISTORY: LOW BACK PAIN, REINJURED BACK 2 WKS AGO COMPARISON: 10/14/2022 FINDINGS: 5 views of the lumbar spine were obtained. There is a moderate T12 compression fracture which has undergone kyphoplasty since the prior films of September 2022. The overall compression of the T12 vertebral body is greater than noted on the prior films. There is mild compression of the T11 vertebral body which was not present on the prior examination. Vascular calcifications are present. There is a mild levoscoliosis of the lumbar spine. IMPRESSION: Moderate T12 compression fracture post kyphoplasty since the prior films of September 2022. There is increased loss of vertebral body height since the prior plain films. A mild T11 compression fracture is now present, new since September. Reviewed, Interpreted and Dictated by Tavon Gonzales III, MD Transcribed by Samantha Mistry Authenticated and [facility]
== END ==
PROVIDERS: PCP Internal Medicine Adolescent Medicine; Visit Provider Anesthesiology
DX: S22.080A Wedge compression fracture of T11-T12 vertebra, initial encounter for closed fracture (principal)
CPT/HCPCS: 72110

== ENCOUNTER → 2023-04-03 17:03 | Outpatient (CLI) | payer MEDICARE, OTHER, SELFPAY ==
--- NOTE | 2023-04-03 17:06 | MR_ITS ---
PROCEDURE INFORMATION: Exam: MR Thoracic Spine Without Contrast Exam date and time: 04/03/2023 5:07 PM Age: 72 years old Clinical indication: Injury or trauma; Other: Lifting heavy item; Other: Fracture; Additional info: New compression fracture TECHNIQUE: Imaging protocol: Magnetic resonance imaging of the thoracic spine without contrast. COMPARISON: 1. CR XR MULTIPLE SPINE 6+V 08/26/2019 11:45 AM 2. MR LUMBAR SPINE WO CON 11/19/2022 12:25 PM 3. CR XR LUMBAR SPINE MIN 4V 03/31/2023 2:29 PM 4. There is also an acute FINDINGS: Bones/joints: T12 compression fracture with near complete central loss of height is progressive since comparison MRI 11/19/2022 with associated STIR signal hyperintensity. There has been a vertebroplasty of T12. T12 posterior bony retropulsion causes severe stenosis of the spinal canal. There is also an inferior endplate compression fracture of the T11 vertebrae with mild loss of height anteriorly which appears acute on MRI. The L1 vertebra superior endplate also has an acute appearing mild compression fracture deformity. The thoracic kyphosis is exaggerated. There is partial osseous fusion of the T6-T7 vertebrae anteriorly. There is minimal multilevel degenerative disc disease of the thoracic spine without significant stenosis at the other levels. There is moderate narrowing of the bilateral T11-12 neural foramen related to retropulsion. The other thoracic neural foramina are patent. Spinal cord: No definite cord signal abnormality. Soft tissues: Unremarkable. Liver: Partially imaged hepatomegaly with 22 cm liver. IMPRESSION: 1. The T12 vertebrae has progressive acute appearing near complete central loss of height since comparison MRI 11/19/2022 with vertebroplasty posttreatment changes again present. Posterior bony retropulsion of T12 causes severe spinal canal stenosis at the T11-12 level. 2. Additional acute anterior/inferior T11 mild compression fracture deformity and acute mild L1 superior endplate compression deformities are also present. These do not have significant retropulsion.
== END ==
PROVIDERS: PCP Internal Medicine Adolescent Medicine; Visit Provider Nurse Practitioner Family
DX: M54.6 Pain in thoracic spine (principal); S22.080D Wedge compression fracture of T11-T12 vertebra, subsequent encounter for fracture with routine healing
CPT/HCPCS: 72146

== ENCOUNTER → 2023-04-07 11:30 | Outpatient (POV) | payer MEDICARE, OTHER, SELFPAY ==
[2023-04-07 12:24] VITALS: BP 149/63; PULSE 78; RESP 18; O2SAT 98; BMI 25.7
--- NOTE | 2023-04-07 13:05 | EXP.PAIN.SOA ---
[facility] Pain Management SOAP Note Subjective:: Patient is a pleasant 72-year-old female who presents today for follow-up of thoracic MRI. We are currently treating the patient for degenerative disc disease of lumbar spine with lumbar radiculopathy symptoms, lumbar spondylosis, lumbar facet arthropathy, sacroiliitis, status post kyphoplasty at T12. Today she rates her pain a 10 out of 10. Patient denies any new trauma or change to location or type of pain she experiences. She still continues to have mid and low back pain that is worse with increased activity. She does present today with brace on. Patient was recently diagnosed with new compression fractures following x-ray imaging. Patient does describe her pain as a sharp achy sensation that does affect her ability to perform activities of daily living or even simple ambulation. She states that she can barely walk due to the worsening pain. At her last visit we did order her methocarbamol 750 mg however she states she has not noticed any additional improvement with this medication. She is currently managed with gabapentin 300 mg 3 times a day and Percocet 10 mg 3 times a day from her primary care doctor patient denies any side effects from this medication. Patient is scheduled for a second medial branch block tomorrow. She does state that she is only experiencing pain on the right side of her low back around her pants line. She does state from the first medial branch block bilaterally the left side was completely relieved and still continues to provide improvement. Her Horacio is [id number]. Its been reviewed and appropriate. Review of Systems: General: No recent weight changes, no fever, no sleep disturbances Respiratory: No cough, no shortness of air, no recurring pulmonary infections Cardiovascular/peripheral vascular: No chest pain, no palpitations, no edema, no shortness of breath Gastrointestinal: No new onset incontinence, normal bowel movements reported Genitourinary: No new onset incontinence Musculoskeletal: Mid/low back pain Psychiatric: [Normal mood/affect] Neurological: [Denies weakness in extremities], [denies balance issues] Objective:: Physical Exam: General: Alert and oriented x3, no acute distress, pleasant and cooperative Lungs: Respirations even and unlabored, symmetrical chest expansion Eyes: PERRL Musculoskeletal: Flexion and extension of thoracic, lumbar [spine] somewhat guarded secondary to pain, [antalgic gait noted] Neurological: Speech clear, no gross sensory deficit PROCEDURE INFORMATION: Exam: MR Thoracic Spine Without Contrast Exam date and time: 04/03/2023 5:07 PM Age: 72 years old Clinical indication: Injury or trauma; Other: Lifting heavy item; Other: Fracture; Additional info: New compression fracture TECHNIQUE: Imaging protocol: Magnetic resonance imaging of the thoracic spine without contrast. COMPARISON: 1. CR XR MULTIPLE SPINE 6+V 08/26/2019 11:45 AM 2. MR LUMBAR SPINE WO CON 11/19/2022 12:25 PM 3. CR XR LUMBAR SPINE MIN 4V 03/31/2023 2:29 PM 4. There is also an acute FINDINGS: Bones/joints: T12 compression fracture with near complete central loss of height is progressive since comparison MRI 11/19/2022 with associated STIR signal hyperintensity. There has been a vertebroplasty of T12. T12 posterior bony retropulsion causes severe stenosis of the spinal canal. There is also an inferior endplate compression fracture of the T11 vertebrae with mild loss of height anteriorly which appears acute on MRI. The L1 vertebra superior endplate also has an acute appearing mild compression fracture deformity. The thoracic kyphosis is exaggerated. There is partial osseous fusion of the T6-T7 vertebrae anteriorly. There is minimal multilevel degenerative disc disease of the thoracic spine without significant stenosis at the other levels. There is moderate narrowing of the bilateral T11-12 neural foramen related to retrop
== END | disposition home or self-care (01) ==
PROVIDERS: PCP Internal Medicine Adolescent Medicine; Visit Provider Nurse Practitioner Family
DX: M51.16 Intervertebral disc disorders with radiculopathy, lumbar region (principal); M47.26 Other spondylosis with radiculopathy, lumbar region; M46.1 Sacroiliitis, not elsewhere classified; Z98.1 Arthrodesis status
CPT/HCPCS: 99212; G0463

== ENCOUNTER 2023-04-08 08:02 | Day surgery (SDC) | payer MEDICARE, OTHER, SELFPAY ==
[2023-04-08 08:26] VITALS: BP 151/71; PULSE 74; RESP 18; TEMP 36.8; O2SAT 97; BMI 29.2
[2023-04-08 08:39] VITALS: BP 148/69; PULSE 73; RESP 18; O2SAT 96
--- NOTE | 2023-04-08 08:43 | P.PCN_ITS ---
Procedure Date: 04/08/23 Time: 08:30 Anesthesiologist:: Abdifatah Russell CRNA Complications:: None Pre-procedure Diagnosis:: Degenerative disc lumbar spine multilevels. Lumbar radiculopathy. Lumbar spondylosis. Multilevel lumbar facet arthropathy. Post-procedure Diagnosis:: Same. Indications for Procedure:: Patient is a very pleasant 72-year-old female that comes our clinic today for bilateral L4-5, L5-S1 medial branch blocks/facet injections. She has extreme low back pain she describes as constant, dull, aching. Patient reports pain intensifies when standing for any length of time. Sitting for any length of time. She has difficulty with flexion, extension, left and right rotation. Patient also has T11 vertebral fracture that will be repaired this Friday. Procedure Details:: Informed consent was obtained and the risk and benefits of the procedure was explained to the patient. Patient was taken to the procedure room where noninvasive monitors were placed, including noninvasive blood pressure cuff as well as pulse oximeter. The area over the lumbar spine was cleansed using chlorhexidine as a cleansing solution. I anesthetized the skin and subcutaneous tissues with 1% Lidocaine. I placed 22-gauge spinal needles into the facet joint/ medial branches of L4-L5, and L5-S1 bilaterally. Needle placement was confirmed with fluoroscopy. After confirmation of needle placement, each site was injected with 1 mL of 1% lidocaine and 0.25 % Marcaine and 10 mg of Depo- Medrol. A total of 80 mg of depo medrol was used for bilateral medial branch blocks of L4-L5, and L5-S1 bilaterally. Patient tolerated the procedure without difficulty. There were no complications. Plan and Disposition:: Patient was discharged without incident.
[2023-04-08 08:45] VITALS: BP 173/84; PULSE 65; RESP 16; O2SAT 97
[2023-04-08 08:47] VITALS: BP 148/69; PULSE 73; RESP 18; O2SAT 96
== END 2023-04-08 08:45 | disposition home or self-care (01) ==
PROVIDERS: PCP Internal Medicine Adolescent Medicine; Visit Provider Nurse Anesthetist, Certified Registered
DX: M47.896 Other spondylosis, lumbar region (principal); M51.16 Intervertebral disc disorders with radiculopathy, lumbar region
CPT/HCPCS: 64493; 64494; J1040

== ENCOUNTER 2023-04-22 17:27 | Observation (INO) | payer MEDICARE, OTHER, SELFPAY ==
[2023-04-22] VITALS (10 sets, daily range): BP systolic 143–186; BP diastolic 63–87; PULSE 90–104; RESP 14–20; TEMP 36.9–37.4; O2SAT 94–98; BMI 29.7; BMI 29.2
--- NOTE | 2023-04-22 17:30 | PC.NURSE ---
DR MEJIA AT BEDSIDE
--- NOTE | 2023-04-22 17:44 | CT_ITS ---
PROCEDURE INFORMATION: Exam: CT Abdomen And Pelvis With Contrast Exam date and time: 04/22/2023 6:37 PM Age: 72 years old Clinical indication: Other: Lung cancer mets eval TECHNIQUE: Imaging protocol: Computed tomography of the abdomen and pelvis with contrast. Radiation optimization: All CT scans at this facility use at least one of these dose optimization techniques: automated exposure control; mA and/or kV adjustment per patient size (includes targeted exams where dose is matched to clinical indication); or iterative reconstruction. Contrast material: ISOVUE; Contrast volume: 70 ml; Contrast route: IV; REPORTING DATA: Count of CT and Cardiac NM exams in prior 12 months: This patient has received 2 known CTs and 0 known cardiac nuclear medicine studies in the 12 months prior to the current study. COMPARISON: CT PELVIS WO CON 10/31/2022 1:40 PM FINDINGS: Liver: Normal. No mass. Gallbladder and bile ducts: Normal. No calcified stones. No ductal dilation. Pancreas: Normal. No ductal dilation. Spleen: Normal. No splenomegaly. Adrenal glands: Chronic appearing coarse calcification in the left adrenal gland at the site of previously described left adrenal mass. No suspicious mass lesion evident on the current study. Right adrenal gland appears normal. Kidneys and ureters: Normal. No hydronephrosis. Stomach and bowel: Unremarkable. No obstruction. No mucosal thickening. Appendix: No evidence of appendicitis. Intraperitoneal space: Unremarkable. No free air. No significant fluid collection. Vasculature: Dense atherosclerotic calcification throughout the aorta and iliac arteries. No evidence of aortic aneurysm or dissection. Incidentally noted retroaortic left renal vein. Lymph nodes: Unremarkable. No enlarged lymph nodes. Urinary bladder: Unremarkable as visualized. Reproductive: Uterus is surgically absent. No adnexal abnormality. Bones/joints: Significant degenerative disc changes of the thoracolumbar junction. Chronic appearing compression of T11, T12 and L1 with evidence of prior vertebroplasty at T12. No definite acute fracture. Soft tissues: Unremarkable. IMPRESSION: 1. Coarse calcification of the left adrenal gland at the site of previously described mass lesion. No significant mass lesion seen on the current study. No convincing evidence of metastatic disease in the abdomen or pelvis. 2. Significant chronic osseous and atherosclerotic changes as noted
--- NOTE | 2023-04-22 17:44 | CT_ITS ---
PROCEDURE INFORMATION: Exam: CTA Chest With Contrast Exam date and time: 04/22/2023 6:37 PM Age: 72 years old Clinical indication: Shortness of breath; Prior surgery; Surgery date: 6+ months; Surgery type: Port; Additional info: Lung cancer SOA TECHNIQUE: Imaging protocol: Computed tomographic angiography of the chest with contrast. Exam focused on the arteries. 3D rendering (Not supervised by radiologist): MIP and/or 3D reconstructed images were created by the technologist. Radiation optimization: All CT scans at this facility use at least one of these dose optimization techniques: automated exposure control; mA and/or kV adjustment per patient size (includes targeted exams where dose is matched to clinical indication); or iterative reconstruction. Contrast material: ISOVUE 370; Contrast volume: 70 ml; Contrast route: INTRAVENOUS (IV); REPORTING DATA: Count of CT and Cardiac NM exams in prior 12 months: This patient has received 2 known CTs and 0 known cardiac nuclear medicine studies in the 12 months prior to the current study. COMPARISON: CT CHEST W CON 09/13/2020 9:35 AM FINDINGS: Pulmonary arteries: Normal. No pulmonary emboli. Aorta: Unremarkable. No aortic aneurysm. No aortic dissection. Lungs: There is mild dependent atelectasis in both lungs. Lungs are otherwise clear. Pleural spaces: Irregular area pleural thickening in the medial left thoracic apex has decreased in size compared to prior study. Currently, this area measures approximately 3.3 x 1.6 x 2.0 cm in greatest diameter. No pleural fluid or pneumothorax. Heart: Unremarkable. No cardiomegaly. No pericardial effusion. Lymph nodes: Unremarkable. No enlarged lymph nodes. Bones/joints: Multilevel degenerative disc changes noted throughout the thoracic spine. Evidence of old compression fracture and vertebroplasty at T12. No acute fracture. Soft tissues: Unremarkable. IMPRESSION: Decreased size of the area of pleural thickening in the medial left thoracic apex. Other stable chronic findings as noted.
--- NOTE | 2023-04-22 17:44 | XR_ITS ---
PROCEDURE INFORMATION: Exam: XR Chest Exam date and time: 04/22/2023 6:24 PM Age: 72 years old Clinical indication: Shortness of breath; Prior surgery; Surgery date: 6+ months; Surgery type: Port. HX of cancer; Additional info: SOA TECHNIQUE: Imaging protocol: Radiologic exam of the chest. Views: 1 view. COMPARISON: CR XR CHEST PORTABLE 04/16/2022 5:41 PM FINDINGS: Tubes, catheters and devices: Right subclavian infusion port in place. Lungs: Hazy opacity in the left upper lung has moderately worsened since the prior study. Lungs are otherwise clear. Pleural spaces: Unremarkable. No pleural effusion. No pneumothorax. Heart/Mediastinum: Unremarkable. No cardiomegaly. Bones/joints: Moderate multilevel degenerative disc changes in the thoracic spine. Evidence of prior vertebroplasty in the lower thoracic spine. No acute fracture. IMPRESSION: Hazy left apical pulmonary opacity concerning for pneumonia.
--- NOTE | 2023-04-22 17:47 | HMH.EDGENADL ---
Discharge Plan Disposition Patient Disposition: Admitted Condition: Good Clinical Impressions Clinical Impression: COVID-19, Acute UTI Discharge ED Provider: Flaco Gudino General Adult HPI General Chief complaint: Shortness of Breath/Dyspnea Stated complaint: SOB Time Seen by Provider: 04/22/23 17:36 History of Present Illness HPI narrative: Patient is a 72-year-old female with past medical history of stage IV lung cancer previously on pharmacotherapy with no therapy over the last 8 months, osteoporosis with multiple previous fractures, recurrent urinary tract infection who presents to the emergency department for evaluation of shortness of breath. History is obtained by patient at bedside. Patient has had worsening shortness of breath over the last 48 hours, denies substernal chest pain however there is pain centered in her back over site of her previous osteoporotic fracture. She has recently been evaluated by urology and was put on fluoroquinolone for 3 weeks for which she has been compliant. Due to worsening shortness of breath she presents here for continued evaluation. Related Data Home Medications Medication Instructions Recorded Confirmed aspirin 81 mg capsule 81 mg PO DAILY antiplatelet 04/22/23 04/22/23 budesonide 3 mg 9 mg PO DAILY soa 04/22/23 04/22/23 capsule,delayed,extended release cefuroxime axetil 500 mg tablet 500 mg PO BID finished atb 04/22/23 04/22/23 ciprofloxacin HCl 500 mg tablet 500 mg PO BID antibiotic 04/22/23 04/22/23 ergocalciferol (vitamin D2) 1,000 1,250 mcg PO WEEKLY Supplement 04/22/23 04/22/23 unit capsule fexofenadine 180 mg tablet 180 mg PO DAILY Allergy Symptoms 04/22/23 04/22/23 lansoprazole 30 mg capsule,delayed 30 mg PO DAILY GERD 04/22/23 04/22/23 release levothyroxine 50 mcg tablet 50 mcg PO DAILY hypothyroid 04/22/23 04/22/23 magnesium 200 mg tablet 200 mg PO DAILY Supplement 04/22/23 04/22/23 methocarbamol 750 mg tablet 1,000 mg PO BID hip pain 04/22/23 04/22/23 metoprolol succinate 100 mg 100 mg PO DAILY beta genevieve 04/22/23 04/22/23 tablet,extended release 24 hr gpemelgetfsk-rvjhlhmu-muppsq tablet 1 tab PO DAILY Supplement 08/29/23 08/29/23 yxzhajofiqbe-upahbiqu-kyozzk tablet 1 tab PO DAILY Supplement 04/22/23 04/22/23 oxycodone-acetaminophen 10 mg-325 1 tab PO TID PRN Pain 04/22/23 04/22/23 mg tablet sennosides 8.6 mg capsule (senna) 8.6 mg PO BID PRN stool softener 04/22/23 04/22/23 Allergies Allergy/AdvReac Type Severity Reaction Status Date / Time No Known Allergies Allergy Verified 04/08/23 08:27 [facility] Disclaimer: The information contained in this section may have been updated after the patient was seen, as this information can be updated by other users. Medical History (Updated 04/22/23 @ 23:56 by Flaco Gudino MD) Arthritis Cancer Diarrhea Emphysema/COPD History of chemotherapy History of open sigmoidectomy History of radiation therapy History of transient ischemic attack (TIA) HLD (hyperlipidemia) Hypertension Lung cancer Pathologic fracture of vertebrae Port-A-Cath in place UTI (urinary tract infection) Surgical History History of arthroscopy of both knees History of arthroscopy of left shoulder History of colonoscopy Hx of hysterectomy, total Hx of tubal ligation Family History Other Cancer Diabetes Hyperlipidemia Hypertension Stroke Thyroid disorder Social History Smoking Status: Former smoker alcohol intake: never substance use type: denies use current occupational status: retired Travel in the last 8 weeks: None household members: family and none housing: house caffeine: Yes ROS Obtained: Yes Systems reviewed as appropriate & no additional complaints except as documented Physical Exam General Gene
--- NOTE | 2023-04-22 17:57 | PC.NURSE ---
RESPIRATORY NOTIFIED OF [facility]
--- NOTE | 2023-04-22 18:02 | ECG_ITS ---
APPROVED REPORT Exam: Resting ECG HR:98 bpm ECG Measurements Heart Rate 98 AXES VA 146 P 37 QRSd 82 QRS -30 QT 337 T 32 QTc 392 Conclusion SINUS RHYTHM POSSIBLE LEFT ATRIAL ENLARGEMENT [-0.1mV P-WAVE IN V1/V2] BORDERLINE LEFT AXIS DEVIATION [QRS AXIS < -20] POSSIBLE LEFT VENTRICULAR HYPERTROPHY [VOLTAGE CRITERIA PLUS LAE OR QRS WIDENING] NONSPECIFIC ST & T-WAVE ABNORMALITY ABNORMAL ECG UNCONFIRMED REPORT Electronically signed by : Mayur Barnhart MD 04/24/2023 18:45:18
[2023-04-22 18:04] LABS: VBG Base Excess -0.2 mmol/L (-2.4-2.3); VBG HCO3 25.5 mmol/L (23-30); VBG PCO2 47.4 mmol/L (35-51); VBG PH 7.35 mmol/L (7.31-7.41); VBG PO2 26.6 mmol/L (28-40); VBG Total CO2 26.9 mmol/L (23-27)
[2023-04-22 18:15] LABS: Basophils % 0.6 % (0.1-2.0); Eosinophils # 0.1 K/mm3 (0.0-0.4); Eosinophils % 1.3 % (0.1-12.0); Hematocrit 41.7 % (37.0-47.0); Hemoglobin 13.2 g/dL (12.2-16.2); Lymphocytes # 1.4 K/mm3 (0.7-4.5); Lymphocytes % 21.4 % (10-50); Mean Corpuscular HGB Conc 31.6 g/dL (31.8-35.4); Mean Corpuscular Hemoglobin 27.8 pg (27.0-31.2); Mean Corpuscular Volume 87.9 fl (81-99); Mean Platelet Volume 9.3 fl (7.4-10.4); Monocytes # 0.3 K/mm3 (0.1-1.0); Monocytes % 4.3 % (1.7-9.3); Neutrophils # 4.6 K/mm3 (1.8-7.8); Neutrophils % 72.4 % (37.0-80.0); Platelet Count 183 K/mm3 (142-424); Red Blood Count 4.75 M/mm3 (4.20-5.40); Red Cell Distribution Width 15.5 % (11.5-17.5); White Blood Count 6.3 K/mm3 (4.8-10.8)
[2023-04-22 18:18] LABS: Alanine Aminotransferase 54 U/L (12-78); Albumin Level 4.3 g/dl (3.5-5.0); Albumin/Globulin Ratio 1.1 (1.1-1.8); Alkaline Phosphatase 144 U/L (38-126); Anion Gap 14.8 mEq/L (5-15); Aspartate Amino Transferase 65 U/L (14-36); Bilirubin,Total 0.5 mg/dl (0.2-1.3); Blood Urea Nitrogen 13 mg/dl (7-17); Calcium 9.4 mg/dl (8.4-10.2); Carbon Dioxide 28 mmol/L (22.0-30.0); Chloride 98 mmol/L (98-107); Creatinine Clearance Estimated 67 mL/min (50-200); Estimated Glomerular Filt Rate 83 ml/min (>60); GFR (African American) 100 ML/MIN (>60); Glucose 198 mg/dl (74-100); Lactate Dehydrogenase 218 U/L (313-618); Potassium 3.8 mmoL/L (3.5-5.1); Sodium 137 mmol/L (136-145); Total Protein,Serum 8.3 g/dl (6.3-8.2)
[2023-04-22 18:33] LABS: Troponin I < 0.01 ng/ml (0.00-0.034)
[2023-04-22 19:41] LABS: Influenza A, PCR Not Detected (NotDetected); Influenza B, PCR Not Detected (NotDetected)
[2023-04-22 20:11] LABS: Coronavirus 19, PCR Detected (NotDetected)
[2023-04-22 20:11] LABS: Microscopic, Urine URINE MICROSCOPIC (MICROSCOPIC)
[2023-04-22 20:26] LABS: Appearance,Urine SL CLOUDY (Clear); Bilirubin,Urine Negative (Negative); Blood, Urine 2+ (Negative); Color,Urine YELLOW (Yellow); Glucose,Urine (UA) Negative (Negative); Ketones,Urine Negative (Negative); Leukocyte Esterase,Urine 2+ (Negative); Nitrate,Urine Negative (Negative); Protein,Urine TRACE (Negative); Specific Gravity, Urine <= 1.005 (1.005-1.030); Urobilinogen,Urine 0.2 EU/dl (0.2)
[2023-04-22 20:31] LABS: WBC,Urine TNTC #/hpf (0-3)
[2023-04-22 20:32] LABS: Bacteria,Urine Trace /lpf; Squamous Epithelial Cell,Urine Occasional #/hpf (0-5); Yeast,Urine 2+ /lpf
--- NOTE | 2023-04-22 21:03 | PC.NURSE ---
checked on pt stated she had a headache told she was wanting something , son at bs
--- NOTE | 2023-04-22 21:37 | PC.NURSE ---
PAGED DR ROSS
[2023-04-22 21:38] LABS: Troponin I < 0.01 ng/ml (0.00-0.034)
--- NOTE | 2023-04-22 21:40 | PC.NURSE ---
CALL PLACED TO HOUSE FOR ADMIT: DX: MADISON KUMAR BESSON-BESSON
--- NOTE | 2023-04-22 21:41 | PC.NURSE ---
Admissions notified for admit
--- NOTE | 2023-04-22 22:16 | PC.NURSE ---
pt arrived to floor at this time
--- NOTE | 2023-04-22 23:52 | PC.NURSE ---
RT applied 2L supplemental oxygen via nasal cannula for saturations of 88%. Pt on continuos oxygen monitoring.
[2023-04-23 01:02] LABS: Troponin I < 0.01 ng/ml (0.00-0.034)
[2023-04-23 04:00] VITALS: BP 140/79; PULSE 85; RESP 17; TEMP 36.6; O2SAT 93; BMI 29.1
[2023-04-23 07:16] LABS: Eosinophils # 0.1 K/mm3 (0.0-0.4); Neutrophils # 2.1 K/mm3 (1.8-7.8); Red Cell Distribution Width 15.4 % (11.5-17.5)
[2023-04-23 07:18] LABS: Anion Gap 14.7 mEq/L (5-15); Blood Urea Nitrogen 10 mg/dl (7-17); Calcium 8.6 mg/dl (8.4-10.2); Carbon Dioxide 25 mmol/L (22.0-30.0); Chloride 103 mmol/L (98-107); Creatinine Clearance Estimated 66 mL/min (50-200); Estimated Glomerular Filt Rate 122 ml/min (>60); GFR (African American) 148 ML/MIN (>60); Glucose 174 mg/dl (74-100); Potassium 3.7 mmoL/L (3.5-5.1); Sodium 139 mmol/L (136-145)
[2023-04-23 07:23] LABS: Basophils % 0.8 % (0.1-2.0); Eosinophils % 1.5 % (0.1-12.0); Hematocrit 37.4 % (37.0-47.0); Lymphocytes # 1.1 K/mm3 (0.7-4.5); Lymphocytes % 30.4 % (10-50); Mean Corpuscular HGB Conc 30.6 g/dL (31.8-35.4); Mean Corpuscular Hemoglobin 26.9 pg (27.0-31.2); Mean Corpuscular Volume 88.2 fl (81-99); Mean Platelet Volume 9.1 fl (7.4-10.4); Monocytes # 0.4 K/mm3 (0.1-1.0); Monocytes % 9.5 % (1.7-9.3); Neutrophils % 57.8 % (37.0-80.0); Platelet Count 136 K/mm3 (142-424); Red Blood Count 4.24 M/mm3 (4.20-5.40); White Blood Count 3.7 K/mm3 (4.8-10.8)
[2023-04-23 07:29] LABS: Hemoglobin 11.4 g/dL (12.2-16.2)
--- NOTE | 2023-04-23 07:34 | HMH.PHAINT1 ---
Pharmacy Intervention Comments: Medication history complete, medications verified with fill history. Of note, patient was on metoprolol succinate ER 100mg but has not filled since October and was also on levothyroxine 50mcg but has not filled since september. - Holli Solis, PharmD Candidate 2023
--- NOTE | 2023-04-23 07:48 | EXP.HPDC ---
General Admission date:: 04/22/23 Discharge date: 04/23/23 *Admission Date: 04/22/23 *Chief complaint: Weakness, dysuria. Coughing *History of present illness: 72-year-old female with history of multiple medical problems, recurrent cancer, significant osteoporotic fractures and recurrent pelvic pain with recurrent UTIs, pelvic floor dysfunction and pelvic neuralgia, who has been exposed to COVID from a family member over the last couple of days. She had been feeling well until today yet the day of admission when she became very nauseated, weak, some shortness of air was noted and came to the ER. In the ER she was noted to have a mild infiltrate on chest x-ray, CTA showed no infiltrate and no PE, labs were fairly unremarkable except for leukocytes in her urine and she was admitted overnight for IV antibiotics and watching her O2 saturations. Of note she has been on p.o. antibiotics, Cipro twice daily for several weeks from her urologist because of recurrent cystitis. [facility] Disclaimer: The information contained in this section may have been updated after the patient was seen, as this information can be updated by other users. Medical History (Updated 04/22/23 @ 23:56 by Flaco Gudino MD) Arthritis Cancer Diarrhea Emphysema/COPD History of chemotherapy History of open sigmoidectomy History of radiation therapy History of transient ischemic attack (TIA) HLD (hyperlipidemia) Hypertension Lung cancer Pathologic fracture of vertebrae Port-A-Cath in place UTI (urinary tract infection) Surgical History History of arthroscopy of both knees History of arthroscopy of left shoulder History of colonoscopy Hx of hysterectomy, total Hx of tubal ligation Family History Diabetes Hyperlipidemia Cancer Hypertension Thyroid disorder Stroke Social History Smoking Status: Former smoker alcohol intake: never substance use type: denies use current occupational status: retired Travel in the last 8 weeks: None household members: family and none housing: house caffeine: Yes Review of Systems Review of Systems Review of systems:: pertinent systems reviewed and negative unless documented below Exam Data for Last 24 hours Vital signs and Labs for Last 24 Hours: Temp Pulse Resp BP Pulse Ox O2 Del Method 98 F 85 17 140/79 93 L Nasal Cannula 04/23/23 04:00 04/23/23 04:00 04/23/23 04:00 04/23/23 04:00 04/23/23 04:00 04/23/23 04:46 Laboratory Results - last 24 hr 04/22/23 17:40: WBC 6.3, RBC 4.75, Hgb 13.2, Hct 41.7, MCV 87.9, MCH 27.8, MCHC 31.6 L, RDW 15.5, Plt Count 183, MPV 9.3, Neut % (Auto) 72.4, Lymph % (Auto) 21.4, Nuckolls % (Auto) 4.3, Eos % (Auto) 1.3, Baso % (Auto) 0.6, Neut # (Auto) 4.6, Lymph # (Auto) 1.4, N[place]olls # (Auto) 0.3, Eos # (Auto) 0.1, Baso # (Auto) 0.0, Sodium 137, Potassium 3.8, Chloride 98, Carbon Dioxide 28, Anion Gap 14.8, BUN 13, Creatinine 0.70, Estimated Creat Clear 67, Estimated GFR 83, Est GFR ( Amer) 100, Glucose 198 H, Calcium 9.4, Total Bilirubin 0.5, AST 65 H, ALT 54, Alkaline Phosphatase 144 H, Lactate Dehydrogenase 218 L, Troponin I < 0.01, Total Protein 8.3 H, Albumin 4.3, Globulin 4.0 H, Albumin/Globulin Ratio 1.1 04/22/23 17:44: VBG pH 7.35, VBG pCO2 47.4, VBG pO2 26.6 L, VBG HCO3 25.5, VBG Total CO2 26.9, VBG O2 Saturation 50.0, VBG Base Excess -0.2 04/22/23 19:28: SARS-CoV-2 (PCR) Detected A, Influenza A Untype (PCR) Not detected, Influenza Type B (PCR) Not detected 04/22/23 19:56: Urine Color Yellow, Urine Appearance Sl cloudy, Urine pH 7.0, Ur Specific [place] <= 1.005, Urine Protein Trace, Urine Glucose (UA) Negative, Urine Ketones Negative, Urine Blood 2+, Urine Nitrate Negative, Urine Bilirubin Negative, Urine Urobilinogen 0.2, Ur Leukocyte Esterase 2+ A, Urine RBC 5-10, Urine WBC Tntc
[2023-04-23 08:00] VITALS: BP 163/97; PULSE 88; RESP 17; TEMP 36.9; O2SAT 93
--- NOTE | 2023-04-25 13:18 | CARE MANAGER ---
Contacted patient related to hospital discharge. Patient states she is ok. The COVID isn't awful, but still is not feeling the best. We discussed possibly needing home health as she states that she is getting weaker and weaker. She reports using wheelchair to move around house and lives alone. Not sure of the tolerance of home health due to her pain that she has in her back. She is going to speak with Dr. Barnhart at her follow up appointment. HADLEY Cardozo
== END 2023-04-23 10:11 | disposition home or self-care (01) ==
LOC: ER 18:06 → 2ND 21:44
PROVIDERS: Admitting Provider Internal Medicine Adolescent Medicine; Emergency Provider Emergency Medicine; PCP Internal Medicine Adolescent Medicine; Visit Provider Internal Medicine Adolescent Medicine
DX: U07.1 COVID-19 (principal); N39.0 Urinary tract infection, site not specified; J43.9 Emphysema, unspecified; C34.90 Malignant neoplasm of unspecified part of unspecified bronchus or lung
CPT/HCPCS: 36415; 71045; 71275; 74177; 80048; 80053; 81001; 82803; 83615; 84484; 85025; 87040; 87086; 87636; 93005; 99285; G0378; J0696; Q9967

== ENCOUNTER → 2023-05-16 12:51 | Outpatient (POV) | payer MEDICARE, OTHER, SELFPAY ==
[2023-05-16 13:02] VITALS: BP 120/73; PULSE 89; RESP 16; O2SAT 97; BMI 25.8
--- NOTE | 2023-05-16 14:14 | EXP.PAIN.SOA ---
[facility] Pain Management SOAP Note Subjective:: This patient is a pleasant 72-year-old white female who is status post T11 and L1 kyphoplasty. She also had a previous T12 compression fracture and had kyphoplasty done on this several months ago. She has multiple compression fractures with severe degenerative disc disease of lumbar spine with lumbar radiculopathy symptoms and spinal stenosis. She is doing somewhat better however still has some unsteadiness and weakness as she is up and walking and needs assistance with a walker. She is also having some increasing pain in her back and down her legs. More than likely this is from degenerative changes with lumbar radicular symptoms. I do believe she would be a good candidate for intrathecal therapy as she has failed all previous conservative treatments including injections, oral medications, physical therapy and she is not a candidate for surgery. Objective:: Alert and oriented x3 no acute distress. Patient does use a walker for assistance. Motor strength of lower extremities is 4 out of 5. There is no gross sensory deficit. Assessment:: Degenerative disc disease of lumbar spine with lumbar radiculopathy symptoms with multiple compression fractures throughout the lumbar spine status post kyphoplasty x3 Plan:: We will seek approval for a intrathecal pump trial. This patient has failed all previous conservative treatments. She is not a candidate for surgery. We will order psychological evaluation and seek approval for intrathecal pump trial. [facility] Disclaimer: The information contained in this section may have been updated after the patient was seen, as this information can be updated by other users. Medical History Arthritis Cancer Diarrhea Emphysema/COPD History of chemotherapy History of open sigmoidectomy History of radiation therapy History of transient ischemic attack (TIA) HLD (hyperlipidemia) Hypertension Lung cancer Pathologic fracture of vertebrae Port-A-Cath in place UTI (urinary tract infection) Surgical History History of arthroscopy of both knees History of arthroscopy of left shoulder History of colonoscopy Hx of hysterectomy, total Hx of tubal ligation Family History Diabetes Hyperlipidemia Cancer Hypertension Thyroid disorder Stroke Social History Smoking Status: Former smoker alcohol intake: never substance use type: denies use current occupational status: retired Travel in the last 8 weeks: None household members: family and none housing: house caffeine: Yes
== END ==
PROVIDERS: PCP Internal Medicine Adolescent Medicine; Visit Provider Anesthesiology
DX: M51.16 Intervertebral disc disorders with radiculopathy, lumbar region (principal); M84.48XS Pathological fracture, other site, sequela
CPT/HCPCS: 99212; G0463

== ENCOUNTER → 2023-05-17 11:11 | Outpatient (CLI) | payer MEDICARE, OTHER, SELFPAY ==
[2023-05-17 11:17] LABS: Microscopic, Urine URINE MICROSCOPIC (MICROSCOPIC)
[2023-05-17 12:01] LABS: Appearance,Urine CLOUDY (Clear); Bilirubin,Urine Negative (Negative); Blood, Urine 3+ (Negative); Color,Urine YELLOW (Yellow); Glucose,Urine (UA) Negative (Negative); Ketones,Urine Negative (Negative); Leukocyte Esterase,Urine 3+ (Negative); Nitrate,Urine POSITIVE (Negative); Protein,Urine TRACE (Negative); Urobilinogen,Urine 0.2 EU/dl (0.2)
[2023-05-17 12:20] LABS: Bacteria,Urine 2+ /lpf; WBC,Urine 20-50 #/hpf (0-3)
== END ==
PROVIDERS: PCP Internal Medicine Adolescent Medicine; Visit Provider Internal Medicine Adolescent Medicine
DX: R30.0 Dysuria (principal); B96.1 Klebsiella pneumoniae [K. pneumoniae] as the cause of diseases classified elsewhere
CPT/HCPCS: 81001; 87086; 87088; 87186

== ENCOUNTER → 2023-07-11 13:54 | Outpatient (POV) | payer MEDICARE, OTHER, SELFPAY ==
[2023-07-11 14:09] VITALS: BP 158/94; PULSE 81; RESP 18; TEMP 36.3; O2SAT 97; BMI 25.8
--- NOTE | 2023-07-11 15:08 | A.OFFVIS_ITS ---
[facility] Pain Management SOAP Note Subjective:: The patient is a pleasant 72-year-old white female who is status post T11 and L1 kyphoplasty. She also has had a previous kyphoplasty to a T8 reason T12 compression fracture. These have done well with kyphoplasty. We have talked her about intrathecal therapy to give her long-term pain relief. However today she says she is doing well she has minimal pain she is functional she wants to hold off on any intervention. Objective:: Alert and oriented x3 no acute distress. Patient does have antalgic gait. Motor strength of lower extremities is 5/5. There is no gross sensory deficit. Assessment:: Degenerative disc disease of lumbar spine with lumbar radiculopathy symptoms with multiple compression fractures status post kyphoplasty Plan:: I agree with this patient as she is doing very well with minimal pain and very functional we will hold off on any intervention today. We will follow-up with her in 3 months to reassess her symptomology. [facility] Disclaimer: The information contained in this section may have been updated after the lambert feliciano was seen, as this information can be updated by other users. Medical History Arthritis Cancer Diarrhea Emphysema/COPD History of chemotherapy History of open sigmoidectomy History of radiation therapy History of transient ischemic attack (TIA) HLD (hyperlipidemia) Hypertension Lung cancer Pathologic fracture of vertebrae Port-A-Cath in place UTI (urinary tract infection) Surgical History History of arthroscopy of both knees History of arthroscopy of left shoulder History of colonoscopy Hx of hysterectomy, total Hx of tubal ligation Family History Diabetes Hyperlipidemia Cancer Hypertension Thyroid disorder Stroke Social History Smoking Status: Former smoker alcohol intake: never substance use type: denies use current occupational status: retired Travel in the last 8 weeks: None household members: family and none housing: house caffeine: Yes
== END ==
PROVIDERS: PCP Internal Medicine Adolescent Medicine; Visit Provider Anesthesiology
DX: M51.16 Intervertebral disc disorders with radiculopathy, lumbar region (principal)
CPT/HCPCS: 99212; G0463

== ENCOUNTER 2023-08-18 22:14 | Emergency (ER) | payer MEDICARE, OTHER, SELFPAY ==
--- NOTE | 2023-08-18 22:18 | CT_ITS ---
PROCEDURE INFORMATION: Exam: CTA Neck With Contrast Exam date and time: 08/18/2023 10:31 PM Age: 72 years old Clinical indication: Stroke-like symptoms; Right facial droop; Additional info: Possible stroke TECHNIQUE: Imaging protocol: Computed tomographic angiography of the neck with contrast. Exam focused on the cervical segments of the vasculature. 3D rendering (Not supervised by radiologist): MIP and/or 3D reconstructed images were created by the technologist. Radiation optimization: All CT scans at this facility use at least one of these dose optimization techniques: automated exposure control; mA and/or kV adjustment per patient size (includes targeted exams where dose is matched to clinical indication); or iterative reconstruction. Contrast material: ISOVUE 370; Contrast volume: 100 ml; Contrast route: INTRAVENOUS (IV); REPORTING DATA: Count of CT and Cardiac NM exams in prior 12 months: This patient has received 4 known CTs and 0 known cardiac nuclear medicine studies in the 12 months prior to the current study. COMPARISON: CT ANGIO HEAD 08/18/2023 10:31 PM FINDINGS: Tubes, catheters and devices: A right-sided Port-A-Cath is identified. Right common carotid artery: Increased tortuosity of the right common carotid artery. No significant stenosis or occlusion. Right internal carotid artery: Atherosclerosis and 75-80% stenosis the proximal right internal carotid artery. There is irregular contour of the proximal right internal carotid artery, with a linear focus of hypodensity within the proximal right internal carotid artery concerning for a dissection flap.. Increased tortuosity of the right internal carotid artery. Right external carotid artery: No occlusion or significant stenosis. Left common carotid artery: Mild stenosis is identified of the distal left common carotid artery. Atherosclerosis. Artifact limits evaluation of the proximal and distal left common carotid artery, without occlusion. Left internal carotid artery: Atherosclerosis and less than 50% stenoses are identified of the proximal left internal carotid artery. Left external carotid artery: No occlusion or significant stenosis. Right vertebral artery: Atherosclerotic changes are identified of the right vertebral artery. Pjnt-sl-[id number] stenosis is identified of the V2 segment. A dominant right vertebral artery is identified. Left vertebral artery: Stenoses are identified of V1 and V2 segments of the left vertebral artery. This includes severe stenosis of the V1 segment. Aorta: Atherosclerosis of the aortic arch. Artifact limits evaluation of the ascending aorta. Thyroid: The left thyroid lobe is not visualized/absent. Within the right thyroid lobe, there is a 4 mm hypodense nodule. Soft tissues: No significant soft tissue swelling. Bones/joints: Degenerative changes are visualized involving the cervical and upper thoracic spine. Varying degrees of cervical spinal canal stenoses and neural foraminal narrowing visualized. Artifact limits evaluation of the spinal canal. A central protrusion is identified at C3-C4 with moderate spinal canal stenosis mild deformation of the ventral cervical spinal cord. A central disc protrusion is also identified at C4-C5, with mild spinal canal stenosis. Pleural spaces: A small left pleural effusion is partially visualized. There is a band of increased density within the left upper lobe medially, contiguous with the pleura. Other findings: Reconstruction coronal and sagittal MIP images were included on the CTA head study. For discussion of findings within the chest, refer to the chest CT report from the same day. IMPRESSION: 1. Atherosclerosis and 75-80% stenosis the proximal right internal carotid artery. There is irregular contour of the proximal right internal carotid artery, with a linear focus of hypodensity within the proximal right internal carotid artery concerning for a dissection flap. 2. Stenoses are identified of V1 and V2 segments of the left vertebral artery. This includes severe stenosis of the V1 segment. 3. Atherosclerosis and less than 50% stenoses are identified of the proximal left internal carotid artery. 4. Mild stenosis is identified of the distal left common carotid artery. 5. Atherosclerotic changes are identified of the right vertebral artery. Brmz-bk-[id number] stenosis is identified of the V2 segment. A dominant right vertebral artery is identified. 6. Degenerative changes are visualized involving the cervical and upper thoracic spine. A central protrusion is identified at C3-C4 with moderate spinal canal stenosis mild deformation of the ventral cervical spinal cord. A central disc protrusion is also identified at C4-C5, with mild spinal canal stenosis. Correlation with an MRI of the cervical spine is recommended, as clinically indicated. 7. A small left pleural effusion is partially visualized. 8. There is a band of increased density within the left upper lobe medially, contiguous with the pleura. A follow-up chest CT is recommended in 3-6 months. 9. Additional findings described above. COMMENTS: Consistent with the [employer]'s Incidental Findings Committee white paper (J Am Dilip Radiol 2015): In patients aged 35 years and older with an incidental thyroid nodule equal to or greater than 1.[address], MRI or extrathyroidal US, further evaluation with dedicated thyroid US is recommended for patients with normal life expectancy and without comorbidities. For smaller nodules without suspicious features, no further evaluation or follow up is recommended. REFERENCES: NASCET CRITERIA. The degree of stenosis in the cervical segment of the internal carotid artery is based on NASCET criteria. Normal is no stenosis. Mild is less than 50% stenosis. Moderate is 50-69% stenosis. Severe is 70% to 99% stenosis. Total occlusion is no detectable patent lumen.
--- NOTE | 2023-08-18 22:18 | CT_ITS ---
PROCEDURE INFORMATION: Exam: CTA Head With Contrast, Arteriography Exam date and time: 08/18/2023 10:31 PM Age: 72 years old Clinical indication: Stroke-like symptoms; Right facial droop; Additional info: Possible stroke TECHNIQUE: Imaging protocol: Computed tomographic angiography of the head with contrast. Exam focused on the arteries. 3D rendering (Not supervised by radiologist): MIP and/or 3D reconstructed images were created by the technologist. Radiation optimization: All CT scans at this facility use at least one of these dose optimization techniques: automated exposure control; mA and/or kV adjustment per patient size (includes targeted exams where dose is matched to clinical indication); or iterative reconstruction. Contrast material: ISOVUE 370; Contrast volume: 100 ml; Contrast route: INTRAVENOUS (IV); REPORTING DATA: Count of CT and Cardiac NM exams in prior 12 months: This patient has received 4 known CTs and 0 known cardiac nuclear medicine studies in the 12 months prior to the current study. COMPARISON: CT HEAD/BRAIN WO CON 08/18/2023 10:28 PM FINDINGS: ANTERIOR CIRCULATION: Right internal carotid artery: Atherosclerosis of the right internal carotid artery, with moderate stenoses. No aneurysm. Right middle cerebral artery: No occlusion or significant stenosis. No aneurysm. Right anterior cerebral artery: No occlusion or significant stenosis. No aneurysm. Left internal carotid artery: Atherosclerosis of the left internal carotid artery, with mild stenoses. No aneurysm. Left middle cerebral artery: No occlusion or significant stenosis. No aneurysm. Left anterior cerebral artery: No occlusion or significant stenosis. No aneurysm. POSTERIOR CIRCULATION: Right vertebral artery: No occlusion or significant stenosis. No aneurysm. Left vertebral artery: No occlusion or significant stenosis. No aneurysm. Basilar artery: No occlusion or significant stenosis. No aneurysm. Right posterior cerebral artery: No occlusion or significant stenosis. No aneurysm. Left posterior cerebral artery: No occlusion or significant stenosis. No aneurysm. 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 Brain: A right upper parafalcine calcified extra-axial mass is identified measuring 1.4 cm in diameter, likely representing a meningioma. A hypodense lacunar infarct is again visualized within the left basal ganglia, indeterminate in acuity. Refer to the CT head report from the same day. Cerebral ventricles: The ventricles are age appropriate in size. Bones/joints: No acute fracture. Soft tissues: Unremarkable. IMPRESSION: 1. No large vessel arterial occlusion on this CTA head. 2. Atherosclerosis of the internal carotid arteries, with stenoses bilaterally. 3. A right upper parafalcine calcified extra-axial mass is identified measuring 1.4 cm in diameter, likely representing a meningioma. 4. Additional findings described above.
--- NOTE | 2023-08-18 22:21 | CT_ITS ---
PROCEDURE INFORMATION: Exam: CT Head Without Contrast Exam date and time: 08/18/2023 10:28 PM Age: 72 years old Clinical indication: Stroke-like symptoms; Right facial droop; Additional info: Zayda weak, R facial droop TECHNIQUE: Imaging protocol: Computed tomography of the head without contrast. Radiation optimization: All CT scans at this facility use at least one of these dose optimization techniques: automated exposure control; mA and/or kV adjustment per patient size (includes targeted exams where dose is matched to clinical indication); or iterative reconstruction. Other technique: STROKE PROTOCOL was implemented. REPORTING DATA: Count of CT and Cardiac NM exams in prior 12 months: This patient has received 4 known CTs and 0 known cardiac nuclear medicine studies in the 12 months prior to the current study. COMPARISON: No relevant prior studies available. FINDINGS: Brain: A hypodense lacunar infarct is visualized within the left basal ganglia, indeterminate in acuity. Acute or subacute lacunar infarct is the diagnosis of exclusion. There is a small hypodense dilated perivascular space inferior to the right basal ganglia. No acute intracranial hemorrhage is visualized. The barber-white differentiation is otherwise preserved. There is moderate cerebral white matter hypodensity, likely representing small vessel ischemic disease in a patient this age. The acuity of the white matter disease is indeterminate. There is no significant midline shift. There is mild prominence of sulci, compatible with atrophy. A right upper parafalcine calcified extra-axial mass is identified measuring 1.4 cm in diameter, likely representing a meningioma. Cerebral ventricles: The ventricles are age appropriate in size. Pituitary gland and sella: A partially empty sella is visualized. Paranasal sinuses: There is opacification of a right posterior ethmoid air cell. Mastoid air cells: No mastoid effusion. Bones/joints: The calvarium demonstrates no evidence for a depressed fracture. Soft tissues: Unremarkable. Vasculature: Intracranial atherosclerosis visualized. IMPRESSION: 1. A hypodense lacunar infarct is visualized within the left basal ganglia, indeterminate in acuity. Acute or subacute lacunar infarct is the diagnosis of exclusion. Correlation with MRI recommended, as clinically indicated. 2. There is moderate cerebral white matter hypodensity, likely representing small vessel ischemic disease in a patient this age. 3. Mild atrophy. 4. A partially empty sella is visualized. 5. A right upper parafalcine calcified extra-axial mass is identified measuring 1.4 cm in diameter, likely representing a meningioma. 6. Additional findings described above. ASSESSMENT: ASPECTS ([place] Stroke Program Early CT Score) is 9.
[2023-08-18 22:22] VITALS: BMI 27.3
--- NOTE | 2023-08-18 22:22 | CT_ITS ---
PROCEDURE INFORMATION: Exam: CT Chest With Contrast; Diagnostic Exam date and time: 08/18/2023 10:37 PM Age: 72 years old Clinical indication: Condition or disease; Other: Previous lung cancer; Additional info: Previous lung cancer, stroke SX TECHNIQUE: Imaging protocol: Diagnostic computed tomography of the chest with contrast. Radiation optimization: All CT scans at this facility use at least one of these dose optimization techniques: automated exposure control; mA and/or kV adjustment per patient size (includes targeted exams where dose is matched to clinical indication); or iterative reconstruction. Contrast material: ISOVUE; Contrast volume: 75 ml; Contrast route: IV; REPORTING DATA: Count of CT and Cardiac NM exams in prior 12 months: This patient has received 4 known CTs and 0 known cardiac nuclear medicine studies in the 12 months prior to the current study. COMPARISON: CT ANGIO CHEST PE PROTOCOL 04/22/2023 6:37 PM FINDINGS: Thyroid: Absent or severely atrophic left thyroid lobe. 3 mm low-attenuation right thyroid nodule is likely a cyst, unchanged from prior. Lungs: Mild centrilobular emphysema. Patchy scarring noted in the medial left upper lobe. Stable ground-glass and curvilinear foci in the right upper lobe. No new parenchymal nodule. No airspace disease. Pleural spaces: No pneumothorax. No pleural effusion. Heart: Normal heart size. No significant pericardial fluid. Coronary arteries: No significant coronary artery calcification. Lymph nodes: No enlarged lymph nodes. Vasculature: Visualized common carotid arteries are patent. Visualized vertebral arteries are patent. Bones/joints: Subjective bony demineralization. Lower thoracic compression deformities are noted with vertebroplasty cement at several levels. No acute fracture or destructive bony lesion. Soft tissues: Unremarkable. IMPRESSION: 1. Mild centrilobular emphysema. Linear opacities in the left upper lobe may reflect site of treated tumor. 2. No acute superimposed abnormality. No features of airspace disease or heart failure. No obvious pulmonary embolism, noting that sensitivity is limited on routine chest CT protocol. COMMENTS: In the absence of a history or active diagnosis of lung cancer, it is recommended that this patient with emphysema be evaluated for enrollment in a low dose CT lung cancer screening program.
--- NOTE | 2023-08-18 22:22 | CT_ITS ---
PROCEDURE INFORMATION: Exam: CT Abdomen And Pelvis With Contrast Exam date and time: 08/18/2023 10:37 PM Age: 72 years old Clinical indication: Condition or disease; Other: Previous cancer; Additional info: Previous cancer, R sided stroke symptoms TECHNIQUE: Imaging protocol: Computed tomography of the abdomen and pelvis with contrast. Radiation optimization: All CT scans at this facility use at least one of these dose optimization techniques: automated exposure control; mA and/or kV adjustment per patient size (includes targeted exams where dose is matched to clinical indication); or iterative reconstruction. Contrast material: ISOVUE; Contrast volume: 75 ml; Contrast route: IV; REPORTING DATA: Count of CT and Cardiac NM exams in prior 12 months: This patient has received 4 known CTs and 0 known cardiac nuclear medicine studies in the 12 months prior to the current study. COMPARISON: CT ABDOMEN PELVIS W CON 04/22/2023 6:37 PM FINDINGS: Liver: Homogeneous low attenuation throughout the liver is compatible with fatty infiltration. Liver measures 23.5 cm in length. No discrete hepatic nodule. Gallbladder and bile ducts: Postprandial gallbladder is contracted. No biliary tree dilation. Pancreas: Normal. No ductal dilation. Spleen: Spleen measures 12.2 cm in length. Adrenal glands: Calcification noted adjacent to the left adrenal is stable from prior. No evidence of adrenal mass. Kidneys and ureters: No evidence of obstruction. No visible inflammation. Stomach and bowel: There is a lipoma along the anterior gastric wall without visible ulceration. Normal caliber small bowel. Colon is notable for scattered diverticula with the patent sigmoid suture line. Appendix: Prior appendectomy. Intraperitoneal space: No free air. No significant fluid collection. Vasculature: Mild aortoiliac calcific atherosclerosis without aneurysm. Lymph nodes: No enlarged lymph nodes. Urinary bladder: There is enhancement of the bladder wall with a trabeculated appearance of the bladder dome. Reproductive: Prior hysterectomy. No evidence of vaginal cuff or adnexal mass. Bones/joints: Subjective bony demineralization. Compression deformities at T11, T12, and L1 have been treated with vertebroplasty. Superior endplate deformity at L2 appears chronic. No acute fracture or destructive bony lesion. Soft tissues: Fat containing supraumbilical ventral hernia noted with neck measuring 1.1 x 2.4 cm. Healed incisions. IMPRESSION: 1. Enhancement of the bladder mucosa could reflect cystitis. No other acute abnormality in the abdomen or pelvis. 2. Enlarged fatty liver. 3. Subjective bony demineralization with multilevel thoracolumbar junction compression deformities which are likely pathologic insufficiency fractures.
--- NOTE | 2023-08-18 22:23 | ECG_ITS ---
APPROVED REPORT Exam: Resting ECG HR:85 bpm ECG Measurements Heart Rate 85 AXES TX 168 P 68 QRSd 86 QRS -19 QT 428 T -71 QTc 471 Conclusion SINUS RHYTHM LEFT VENTRICULAR HYPERTROPHY AND ST-T CHANGE [VOLTAGE CRITERIA PLUS ST/T ABNORMALITY] ABNORMAL ECG UNCONFIRMED REPORT Electronically signed by : Mayur Barnhart MD 08/20/2023 09:03:24
[2023-08-18 22:24] VITALS: BP 176/86; PULSE 86; RESP 20; TEMP 36.9; O2SAT 95; BMI 27.3
--- NOTE | 2023-08-18 22:25 | PC.NURSE ---
house at bedside. patient to ct at this time.
--- NOTE | 2023-08-18 22:26 | HMH.EDGENADL ---
Discharge Plan Disposition Patient Disposition: Xfer Short-Term Hosp Chief Complaint: Neuro Symptoms/Deficit Prescriptions Prescriptions: No Action fexofenadine 180 mg Tablet 180 mg PO DAILY oxycodone-acetaminophen 10-325 mg tablet 1 tab PO TID PRN (Reason: Pain) budesonide 3 mg capsule,delayed,extend.release 9 mg PO DAILY Patient Comments: TAKE 3 BY MOUTH ONCE DAILY IN THE MORNING magnesium 200 mg Tablet 200 mg PO DAILY nnwftdlfiihf-ylaqvcxx-zlfdbp Tablet 1 tab PO DAILY senna 8.6 mg Capsule 8.6 mg PO BID PRN (Reason: Constipation) aspirin 81 mg Capsule 81 mg PO DAILY lansoprazole 30 mg Capsule,Delayed Release(Dr/Ec) 30 mg PO DAILY ergocalciferol (vitamin D2) 1,000 unit Capsule 1,250 mcg PO WEEKLY Rx Instructions: every in am baclofen 10 mg tablet 10 mg PO BID Patient Comments: TAKE 1 TABLET BY MOUTH TWICE DAILY metoprolol succinate 100 mg tablet extended release 24 hr 100 mg PO DAILY levothyroxine 50 mcg tablet 50 mcg PO DAILY pregabalin 50 mg capsule 50 mg PO DAILY Patient Comments: TAKE 1 CAPSULE BY MOUTH TWICE DAILY Referrals Follow up/Referrals: Mayur Barnhart MD [Primary Care Provider] - See instructions Clinical Impressions Clinical Impression: Acute CVA (cerebrovascular accident), Acute hyperglycemia Discharge ED Provider: Flaco Gudino General Adult HPI General Chief complaint: Neuro Symptoms/Deficit Stated complaint: arm numbness Time Seen by Provider: 08/18/23 22:20 History of Present Illness HPI narrative: Patient is a 72-year-old female with past medical history of lung cancer with intracranial metastasis status post chemoradiation without current known intracranial involvement, degenerative disc disease, compression fractures of her spine who presents emergency department for evaluation of upper extremity weakness. Onset was acute, 10 AM. Patient had difficulty reaching and for her pills with her pill container. She has since had significant difficulty moving her right upper extremity causing her to present here for continued evaluation. Denies blood thinners. Per chart review patient is on medications for hypothyroidism. Related Data Home Medications Medication Instructions Recorded Confirmed aspirin 81 mg capsule 81 mg PO DAILY antiplatelet 04/22/23 08/18/23 budesonide 3 mg 9 mg PO DAILY Breathing Problems 04/22/23 08/18/23 capsule,delayed,extended release ergocalciferol (vitamin D2) 1,000 1,250 mcg PO WEEKLY Supplement 04/22/23 08/18/23 unit capsule fexofenadine 180 mg tablet 180 mg PO DAILY Allergy Symptoms 04/22/23 08/18/23 lansoprazole 30 mg capsule,delayed 30 mg PO DAILY Acid Reflux 04/22/23 08/18/23 release magnesium 200 mg tablet 200 mg PO DAILY Supplement 04/22/23 08/18/23 mazcoerottqs-siwafuwx-fqdimk tablet 1 tab PO DAILY Supplement 04/22/23 08/18/23 oxycodone-acetaminophen 10 mg-325 1 tab PO TID PRN Pain 04/22/23 08/18/23 mg tablet sennosides 8.6 mg capsule (senna) 8.6 mg PO BID PRN Constipation 04/22/23 08/18/23 baclofen 10 mg tablet 10 mg PO BID Muscle Spasms 04/23/23 08/18/23 levothyroxine 50 mcg tablet 50 mcg PO DAILY Thyroid 04/23/23 08/18/23 metoprolol succinate 100 mg 100 mg PO DAILY High Blood Pressure 04/23/23 08/18/23 tablet,extended release 24 hr pregabalin 50 mg capsule 50 mg PO DAILY 08/18/23 08/18/23 Allergies Allergy/AdvReac Type Severity Reaction Status Date / Time No Known Allergies Allergy Verified 07/11/23 14:10 [facility] Disclaimer: The information contained in this section may have been updated after the patient was seen, as this information can be updated by other users. Medical History (Updated 08/18/23 @ 22:53 by Flaco Gudino MD) Arthritis Cancer Diarrhea Emphysema/COPD History of chemotherapy History of open sigmoidectomy History of radiation therapy History of transient ischemic attack (TIA) HLD (hyperlipidemia) Hypertension Lung cancer Pathologic fracture of vertebrae Port-A-Cath in place UTI (urinary tract infection) Surgical History History of arthroscopy of both knees History of arthroscopy of left shoulder History of colonoscopy Hx of hysterectomy, total Hx of tubal ligation Family History Other Cancer Diabetes Hyperlipidemia Hypertension Stroke Thyroid disorder Social History Smoking Status: Former smoker alcohol intake: never substance use type: denies use current occupational status: retired Travel in the last 8 weeks: None household members: family and none housing: house caffeine: Yes ROS Obtained: Yes Systems reviewed as appropriate & no additional complaints except as documented Physical Exam General General appearance: alert and in no apparent distress Head Head exam: atraumatic and normocephalic Eye Eye exam: Present PERRL and EOMI ENT ENT exam: Present mucous membranes moist Neck Neck exam: Present normal inspection Chest Chest inspection: Present normal inspection and symmetric chest wall rise Respiratory Respiratory exam: Present normal lung sounds bilaterally; Absent respiratory distress Cardiovascular Cardiovascular exam: Present regular rate and normal rhythm Abdominal Exam Abdominal exam: Present soft; Absent tenderness Extremities Exam Extremities exam: Present normal inspection Back Exam Back exam: Present other (Kyphotic deformity) Neurological Exam Neurological exam: Present alert and other (Right-sided facial droop, right upper extremity 1 out of 5 strength. Left upper extremity, bilateral lower extremity 5 out of 5 strength) Psychiatric Psychiatric exam: Present normal affect Skin Skin exam: Present warm and dry Medical Decision Making Horacio Inquiry Pt receiving controlled substance: No Vital Signs: 08/18/23 22:24 08/18/23 22:55 Temperature 98.5 F Temperature Source Oral Pulse Rate [Apical] 86 Respiratory Rate 20 Blood Pressure 188/96 H Blood Pressure [Right Arm] 176/86 H Blood Pressure Mean [Right Arm] 116 Blood Pressure Source Manual Cuff/ Auscultation Blood Pressure Source [Right Arm] Automatic Cuff Blood Pressure Position Supine 02 Sat by Pulse Oximetry 95 Oxygen Delivery Method Room Air Lab Data Lab Results 08/18/23 22:20: WBC 6.4, RBC 4.52, Hgb 11.8 L, Hct 37.7, MCV 83.5, MCH 26.1 L, MCHC 31.2 L, RDW 16.0, Plt Count 256, MPV 9.0, Neut % (Auto) 66.1, Lymph % (Auto) 26.5, Aiken % (Auto) 5.6, Eos % (Auto) 1.1, Baso % (Auto) 0.6, Neut # (Auto) 4.2, Lymph # (Auto) 1.7, Aiken # (Auto) 0.4, Eos # (Auto) 0.1, Baso # (Auto) 0.0, Sodium 139, Potassium 4.0, Chloride 104, Carbon Dioxide 23, Anion Gap 16.0 H, BUN 11, Creatinine 0.70, Estimated Creat Clear 67, Estimated GFR 83, Est GFR ( Amer) 100, Glucose 385 H, Calcium 8.7, Magnesium 1.7, Total Bilirubin 0.5, AST 100 H, ALT 52, Alkaline Phosphatase 107, Lactate Dehydrogenase 192 L, Total Protein 7.8, Albumin 4.1, Globulin 3.7 H, Albumin/Globulin Ratio 1.1, Acetone Level None detected 08/18/23 22:20 08/18/23 22:20 Orders (Tests/Meds): ED MEDICATIONS Generic Name Dose Route Start Last Admin Trade Name Freq PRN Reason Stop Dose Admin Lactated Ringer's 1,000 mls @ 999 mls/hr 08/18/23 22:50 08/18/23 22:56 Lactated Ringer's 1000 Ml Bag IV 08/18/23 23:50 999 mls/hr .Q1H1M ONE Administration Sodium Chloride 10 ml 08/18/23 22:53 08/18/23 22:55 Sodium Chloride 0.9% 10ml Syr (Rad Only) IV 09/17/23 22:52 10 ml NEEDED PRN Administration Maintain IV Site Discontinued Medications Generic Name Dose Route Start Last Admin Trade Name Freq PRN Reason Stop Dose Admin Iopamidol 175 ml 08/18/23 22:53 08/18/23 22:54 Iopamidol-370 (76%);100ml Bottle IV 08/18/23 22:54 175 ml ONCE ONE Administration Sodium Chloride 50 ml 08/18/23 22:53 08/18/23 22:54 0.9 % Sodium Chloride 50 Ml Vial IV 08/18/23 22:54 50 ml ONCE ONE Administration ORDERS Category Date Time Status CT abdomen pelvis w con Stat Cat Scan 08/18/23 22:[address] angio head Stat Cat Scan 08/18/23 22:[address] angio neck Stat Cat Scan 08/18/23 22:[address] chest w con Stat Cat Scan 08/18/23 22:[address] head/brain wo con Stat Cat Scan 08/18/23 22:21 Completed Acetone, Serum (Rapid) Stat Lab 08/18/23 22:20 Completed CBC w/Auto Diff [Complete Blood Count Auto Diff] Stat Lab 08/18/23 22:20 Completed CMP [Comprehensive Metabolic Panel] Stat Lab 08/18/23 22:20 Completed LDH [Lactate Dehydrogenase] Stat Lab 08/18/23 22:20 Completed MG [Magnesium] Stat Lab 08/18/23 22:20 Completed UA [Urinalysis and Microscopic] Stat Lab 08/18/23 22:24 Ordered VBG [Venous Blood Gas] Stat RT 08/18/23 22:24 Ordered ECG Data Tracing #1: Independently interpreted by me, rate is 85, rhythm is regular, no ST elevation in anatomical contiguous leads, QTc 471. Medical Decision Narrative: In summary patient is a 72-year-old female past medical history described above presents emergency department for evaluation of strokelike symptoms in the setting of previous malignancy and suspected admission. Patient is hemodynamically stable and nontoxic-appearing upon arrival, right upper extremity weakness, right facial droop. Fingerstick blood glucose is elevated at 350. Patient does not have a diagnosis of diabetes. Last known normal 10 AM. Of note patient is DNR/DNI. Patient will undergo stroke evaluation with noncontrasted CT scan of the head, CTA of the head and neck. CT of the chest, abdomen, pelvis will also be obtained given history of malignancy. Hematologic labs will be obtained. Initial NIH is 9. Initial hematologic labs are reviewed by me, patient has hyperglycemia and an anion gap of 16 for which VBG and serum ketones will be obtained. Patient may have new onset diabetes or this may be a significant stress response. 1 L crystalloid will be administered. Viz. AI states no large vessel occlusion. I spoke with [facility] who was concerned for an acute left-sided lacunar infarct. CT of the abdomen pelvis shows enhancement of the bladder mucosa, bony demineralization with multiple compression deformities which are known to patient. CT chest shows no acute abnormality. The case was discussed with [facility] stroke navigator who graciously excepted patient for transfer for continued evaluation at this time. Critical Care Critical Care Time Critical Care Time: Yes Attestation: On 08/18/23, the high probability of a clinically significant, sudden or life threatening deterioration of the following system(s) required my full and direct attention, intervention and personal management. The time I documented below is in addition to time spent performing reported procedures but includes the following listed in this critical care notation. Total Time Total Critical Care Time: 30
--- NOTE | 2023-08-18 22:27 | PC.NURSE ---
I accompanied the pt to CT scan with Vickie BUTCHER
[2023-08-18 22:31] LABS: Basophils % 0.6 % (0.1-2.0); Eosinophils # 0.1 K/mm3 (0.0-0.4); Eosinophils % 1.1 % (0.1-12.0); Hematocrit 37.7 % (37.0-47.0); Hemoglobin 11.8 g/dL (12.2-16.2); Lymphocytes # 1.7 K/mm3 (0.7-4.5); Lymphocytes % 26.5 % (10-50); Mean Corpuscular HGB Conc 31.2 g/dL (31.8-35.4); Mean Corpuscular Hemoglobin 26.1 pg (27.0-31.2); Mean Corpuscular Volume 83.5 fl (81-99); Monocytes # 0.4 K/mm3 (0.1-1.0); Monocytes % 5.6 % (1.7-9.3); Neutrophils # 4.2 K/mm3 (1.8-7.8); Neutrophils % 66.1 % (37.0-80.0); Platelet Count 256 K/mm3 (142-424); Red Blood Count 4.52 M/mm3 (4.20-5.40); White Blood Count 6.4 K/mm3 (4.8-10.8)
[2023-08-18 22:34] LABS: Chloride 104 mmol/L (98-107); Sodium 139 mmol/L (136-145)
[2023-08-18 22:36] LABS: Blood Urea Nitrogen 11 mg/dl (7-17); Creatinine Clearance Estimated 67 mL/min (50-200); Estimated Glomerular Filt Rate 83 ml/min (>60); GFR (African American) 100 ML/MIN (>60); Magnesium 1.7 mg/dl (1.6-2.3)
[2023-08-18 22:37] LABS: Alanine Aminotransferase 52 U/L (12-78); Albumin Level 4.1 g/dl (3.5-5.0); Albumin/Globulin Ratio 1.1 (1.1-1.8); Alkaline Phosphatase 107 U/L (38-126); Aspartate Amino Transferase 100 U/L (14-36); Bilirubin,Total 0.5 mg/dl (0.2-1.3); Calcium 8.7 mg/dl (8.4-10.2); Carbon Dioxide 23 mmol/L (22.0-30.0); Globulin 3.7 g/dL (1.3-3.2); Glucose 385 mg/dl (74-100); Total Protein,Serum 7.8 g/dl (6.3-8.2)
[2023-08-18 22:45] LABS: Lactate Dehydrogenase 192 U/L (313-618)
[2023-08-18 22:47] VITALS: BP 175/89; PULSE 87; O2SAT 94
--- NOTE | 2023-08-18 22:51 | PC.NURSE ---
called RT at this time to inform of VBG ordered.
[2023-08-18 22:54] LABS: Acetone, Serum (Rapid) None Detected (None Detect)
[2023-08-18] MEDS: 0.9 % SODIUM CHLORIDE 50 ML VIAL IV (22:54)
[2023-08-18] MEDS: IOPAMIDOL-370 (76%);100ML BOTTLE 175 ML IV (22:54)
[2023-08-18 22:55] VITALS: BP 188/96
[2023-08-18] MEDS: SODIUM CHLORIDE 0.9% 10ML SYR (RAD ONLY) 10 ML IV (22:55)
--- NOTE | 2023-08-18 22:55 | PC.NURSE ---
Julian RN and I brought the pt back to her room from radiology.
[2023-08-18] MEDS: LACTATED RINGERS 1000ML 1,000 ML 999 ML IV (22:56)
[2023-08-18 23:00] VITALS: BP 182/87; PULSE 84; O2SAT 94
--- NOTE | 2023-08-18 23:15 | PC.NURSE ---
Per ER MD Gudino pt has been accepted by [facility] per Conner Stroke Navigator
[2023-08-18 23:17] LABS: VBG Base Excess -1.5 mmol/L (-2.4-2.3); VBG HCO3 22.6 mmol/L (23-30); VBG PCO2 33.8 mmol/L (35-51); VBG PH 7.44 mmol/L (7.31-7.41); VBG PO2 159.4 mmol/L (28-40); VBG Total CO2 23.6 mmol/L (23-27)
--- NOTE | 2023-08-18 23:19 | PC.NURSE ---
CB called for possible transport
--- NOTE | 2023-08-18 23:25 | PC.NURSE ---
Addendum entered by Nely Starks RN 08/18/23 23:27: After assisting pt to bsc, pt c/o difficulty urinating and requested a self-catheter. Posadas catheter inserted per MD Maldonado by this RN Original Note: 16fr posadas catheter inserted at this time. Pt tolerated fair. Bright yellow urine draining
[2023-08-18 23:26] LABS: Microscopic, Urine URINE MICROSCOPIC (MICROSCOPIC)
--- NOTE | 2023-08-18 23:29 | PC.NURSE ---
received call back from [facility], number to call report, accepting is johnny; notified nurse of need to call report
[2023-08-18 23:30] VITALS: BP 177/90; PULSE 87; O2SAT 94
[2023-08-18 23:31] LABS: Appearance,Urine CLEAR (Clear); Bilirubin,Urine Negative (Negative); Blood, Urine 1+ (Negative); Color,Urine YELLOW (Yellow); Glucose,Urine (UA) 3+ (Negative); Ketones,Urine Negative (Negative); Leukocyte Esterase,Urine 1+ (Negative); Nitrate,Urine POSITIVE (Negative); PH,Urine 7.5 (5.0-8.5); Protein,Urine TRACE (Negative); Specific Gravity, Urine <= 1.005 (1.005-1.030); Urobilinogen,Urine 0.2 EU/dl (0.2)
--- NOTE | 2023-08-18 23:36 | PC.NURSE ---
received call from luisa
[2023-08-18 23:44] LABS: Bacteria,Urine 1+ /lpf
--- NOTE | 2023-08-18 23:59 | PC.NURSE ---
EMS notified of need for transport
[2023-08-19] VITALS: BP 195/100; PULSE 90; O2SAT 95
--- NOTE | 2023-08-19 00:19 | PC.NURSE ---
0009 report called to Neuro RN at
[2023-08-19 00:24] VITALS: BP 195/100; PULSE 91; RESP 17; TEMP 36.8; O2SAT 96
--- NOTE | 2023-08-21 11:49 | PC.NURSE ---
Addendum entered by Laurence Weir RN 08/21/23 12:07: aware, no further action. Original Note: urine culture shows gram negative rods, faxed results to [facility] where pt was transferred [phone]
== END 2023-08-19 00:40 | disposition short-term general hospital (02) ==
PROVIDERS: Emergency Provider Emergency Medicine; PCP Internal Medicine Adolescent Medicine
DX: I63.9 Cerebral infarction, unspecified (principal); R73.9 Hyperglycemia, unspecified; I10 Essential (primary) hypertension; E78.5 Hyperlipidemia, unspecified; Z85.118 Personal history of other malignant neoplasm of bronchus and lung; Z85.841 Personal history of malignant neoplasm of brain; Z87.891 Personal history of nicotine dependence
CPT/HCPCS: 51702; 70450; 70496; 70498; 71260; 74177; 80053; 81001; 82009; 82803; 83615; 83735; 85025; 87086; 93005; 96360; 99291; Q9967

== ENCOUNTER 2023-10-09 13:30 | Outpatient (POV) | payer MEDICARE, OTHER, SELFPAY ==
[2023-10-09 14:03] VITALS: BP 97/48; PULSE 72; RESP 18; O2SAT 95; BMI 25.8
--- NOTE | 2023-10-09 14:36 | A.OFFVIS_ITS ---
[facility] Pain Management SOAP Note Subjective:: Patient is a pleasant 73-year-old female who presents today for follow-up. We are currently treating the patient for degenerative disc disease of lumbar spine with lumbar radiculopathy symptoms, lumbar spondylosis, lumbar facet arthropathy, sacroiliitis, status post kyphoplasty at T12, T11 and L1, chronic compression fractures. Today she rates her pain a 1 out of 10. She does state since our last visit she has had several things occur including she had a stroke back on . She states that thankfully she does not have any residual weakness from this however she was also recently diagnosed with diabetes. Patient does state that she was put on blood thinners for approximate ly 3 to 4 weeks after her stroke however she is no longer on these. Patient does also mention that she is scheduled for an upcoming procedure in order to rule out a possible hole in her heart. She is currently managed with pregabalin 50 mg twice daily and Percocet 10 mg 3 times a day. Patient denies any side effects from these medications. These are written from her primary care provider. Has been reviewed and is appropriate. Review of Systems: General: No recent weight changes, no fever, no sleep disturbances Respiratory: No cough, no shortness of air, no recurring pulmonary infections Cardiovascular/peripheral vascular: No chest pain, no palpitations, no edema, no shortness of breath Gastrointestinal: No new onset incontinence, normal bowel movements reported Genitourinary: No new onset incontinence Musculoskeletal: Low back pain, leg weakness Psychiatric: [Normal mood/affect] Neurological: [Denies weakness in extremities], [denies balance issues] Objective:: Physical Exam: General: Alert and oriented x3, no acute distress, pleasant and cooperative Lungs: Respirations even and unlabored, symmetrical chest expansion Eyes: PERRL Musculoskeletal: Flexion and extension of lumbar [spine] somewhat guarded secondary to pain, [antalgic gait noted] Neurological: Speech clear, no gross sensory deficit Assessment:: Degenerative disc disease of lumbar spine with lumbar radiculopathy symptoms, lumbar spondylosis, lumbar facet arthropathy, sacroiliitis, status post kyphoplasty at T12, T11 and L1, chronic compression fractures Plan:: Patient is doing well currently with her overall mid back and low back symptoms. I have discussed with the patient that if any point she needs referral for physical therapy or home health for her leg weakness to let us know and that we would be happy to send this referral in. Patient will return to clinic in 6 months for reevaluation of symptoms and plan of care. End up [facility] Disclaimer: The information contained in this section may have been updated after the patient was seen, as this information can be updated by other users. Medical History (Updated 08/18/23 @ 22:53 by Flaco Gudino MD) Arthritis Cancer Diarrhea Emphysema/COPD History of chemotherapy History of open sigmoidectomy History of radiation therapy History of transient ischemic attack (TIA) HLD (hyperlipidemia) Hypertension Lung cancer Pathologic fracture of vertebrae Port-A-Cath in place UTI (urinary tract infection) Surgical History History of arthroscopy of both knees History of arthroscopy of left shoulder History of colonoscopy Hx of hysterectomy, total Hx of tubal ligation Family History Other Cancer Diabetes Hyperlipidemia Hypertension Stroke Thyroid disorder Social History Smoking Status: Former smoker alcohol intake: never substance use type: denies use current occupational status: retired Travel in the last 8 weeks: None household members: family and none housing: house caffeine: Yes
== END 2023-10-09 23:59 ==
PROVIDERS: PCP Internal Medicine Adolescent Medicine; Visit Provider Nurse Practitioner Family
DX: M51.16 Intervertebral disc disorders with radiculopathy, lumbar region (principal); M47.26 Other spondylosis with radiculopathy, lumbar region; M46.1 Sacroiliitis, not elsewhere classified; M84.48XS Pathological fracture, other site, sequela
CPT/HCPCS: 99212; G0463

== ENCOUNTER 2023-11-05 16:20 | Outpatient (CLI) | payer MEDICARE, OTHER, SELFPAY ==
[2023-11-05 16:28] VITALS: BMI 26.1
[2023-11-05] MEDS: 0.9 % SODIUM CHLORIDE 50 ML 100 ML IV (16:32)
[2023-11-05] MEDS: CEFTRIAXONE 1 GM 1 GM in 0.9 % SODIUM CHLORIDE 50 ML IV (16:32)
[2023-11-05] MEDS: 0.9 % SODIUM CHLORIDE 1000ML 1,000 ML 999 ML IV (16:33)
[2023-11-05 16:40] VITALS: BP 149/49; PULSE 88; RESP 17; TEMP 37.7; O2SAT 95
[2023-11-05 16:50] LABS: Basophils # 0.1 K/mm3 (0-0.2); Basophils % 0.5 % (0.1-2.0); Eosinophils % 0.3 % (0.1-12.0); Hematocrit 30.1 % (37.0-47.0); Hemoglobin 9.4 g/dL (12.2-16.2); Lymphocytes # 1.9 K/mm3 (0.7-4.5); Lymphocytes % 18.9 % (10-50); Mean Corpuscular HGB Conc 31.4 g/dL (31.8-35.4); Mean Corpuscular Hemoglobin 25.9 pg (27.0-31.2); Mean Corpuscular Volume 82.7 fl (81-99); Mean Platelet Volume 9.6 fl (7.4-10.4); Monocytes # 0.7 K/mm3 (0.1-1.0); Monocytes % 7.2 % (1.7-9.3); Neutrophils # 7.5 K/mm3 (1.8-7.8); Neutrophils % 73.1 % (37.0-80.0); Platelet Count 242 K/mm3 (142-424); Red Blood Count 3.64 M/mm3 (4.20-5.40); Red Cell Distribution Width 17.9 % (11.5-17.5); White Blood Count 10.2 K/mm3 (4.8-10.8)
[2023-11-05 16:59] LABS: Chloride 105 mmol/L (98-107); Sodium 134 mmol/L (136-145)
[2023-11-05 17:00] LABS: Potassium 4.3 mmoL/L (3.5-5.1)
[2023-11-05 17:02] LABS: Blood Urea Nitrogen 14 mg/dl (7-17); Creatinine Clearance Estimated 64 mL/min (50-200); Estimated Glomerular Filt Rate 55 ml/min (>60); GFR (African American) 66 ML/MIN (>60)
[2023-11-05 17:03] LABS: Anion Gap 10.3 mEq/L (5-15); Calcium 8.4 mg/dl (8.4-10.2); Carbon Dioxide 23 mmol/L (22.0-30.0); Glucose 119 mg/dl (74-100)
[2023-11-05 17:15] VITALS: BP 144/57; PULSE 91; RESP 20; O2SAT 96
[2023-11-05 17:45] VITALS: BP 149/60; PULSE 85; RESP 20; O2SAT 96
== END 2023-11-05 17:45 | disposition home or self-care (01) ==
LOC: INF 16:22
PROVIDERS: PCP Internal Medicine Adolescent Medicine; Visit Provider Internal Medicine Adolescent Medicine
DX: E86.0 Dehydration (principal); N39.0 Urinary tract infection, site not specified; Z79.899 Other long term (current) drug therapy
CPT/HCPCS: 80048; 85025; 96360; 96367; J0696; J1642

== ENCOUNTER 2024-02-03 13:34 | Outpatient (CLI) | payer MEDICARE, OTHER, SELFPAY ==
[2024-02-03 13:42] VITALS: BMI 25.9
[2024-02-03] MEDS: SODIUM CHLORIDE 0.9% 10ML FLUSH SYRINGE 10 ML IV (13:59)
[2024-02-03 14:11] LABS: Basophils # 0.1 K/mm3 (0-0.2); Basophils % 0.9 % (0.1-2.0); Eosinophils # 0.1 K/mm3 (0.0-0.4); Eosinophils % 1.6 % (0.1-12.0); Hematocrit 36.9 % (37.0-47.0); Hemoglobin 11.6 g/dL (12.2-16.2); Lymphocytes % 26.5 % (10-50); Mean Corpuscular HGB Conc 31.4 g/dL (31.8-35.4); Mean Corpuscular Hemoglobin 27.2 pg (27.0-31.2); Mean Corpuscular Volume 86.6 fl (81-99); Mean Platelet Volume 9.3 fl (7.4-10.4); Monocytes # 0.4 K/mm3 (0.1-1.0); Monocytes % 5.4 % (1.7-9.3); Neutrophils # 4.9 K/mm3 (1.8-7.8); Neutrophils % 65.6 % (37.0-80.0); Platelet Count 204 K/mm3 (142-424); Red Blood Count 4.25 M/mm3 (4.20-5.40); Red Cell Distribution Width 22.5 % (11.5-17.5); White Blood Count 7.5 K/mm3 (4.8-10.8)
[2024-02-03 14:14] LABS: Iron 54 ug/dL (37-170)
[2024-02-03 14:23] LABS: Total Iron Binding Capacity 232 ug/dL (265-497)
[2024-02-03 14:51] LABS: Ferritin 25.1 ng/ml (11.1-264)
== END 2024-02-03 14:03 | disposition home or self-care (01) ==
LOC: LAB 13:36 → INF 13:37
PROVIDERS: PCP Internal Medicine Adolescent Medicine; Visit Provider Internal Medicine Medical Oncology
DX: D50.9 Iron deficiency anemia, unspecified (principal)
CPT/HCPCS: 36591; 82728; 83540; 83550; 85025; J1642

== ENCOUNTER 2024-02-11 15:00 | Outpatient (RCR) | payer MEDICARE, OTHER, SELFPAY ==
--- NOTE | 2024-01-07 15:08 | HMH.RHREAS ---
Rehab Reassessment Rehab OP Re-assessment Start: 12/09/23 13:59 Freq: Status: Active Protocol: Document 01/07/24 14:07 RMARSHALL (Rec: 01/07/24 15:07 RMARSHALL Laptop) E-signed By [facility] OT QuickDASH Activities Please rate your ability to do the following activities in the last week by selecting the number below the appropriate response. 1. Open a tight or new jar. Severe difficulty 2. Do heavy [employer] (e.g., wash Severe difficulty lorenzo, floors). 3. Carry a shopping bag or briefcase. Severe difficulty 4. Wash your back. Unable 5. Use a knife to cut food. No difficulty 6. Recreational activities in which you Severe difficulty take some force or impact through your arm, shoulder, or hand (e.g., golf, hammering, tennis, etc.). 7. During the past week, to what extent Quite a bit has your arm, shoulder or hand problem interfered with your normal social activities with family, friends, neighbors or groups? 8. During the past week, were you Very limited limited in your work or other regular daily activites as a result of your arm, shoulder or hand problem? 9. Arm, shoulder or hand pain. Severe 10. Tingling (pins and needles) in your Mild arm, shoulder or hand. 11. During the past week, how much Severe difficulty difficulty have you had sleeping because of the pain in your arm, shoulder or hand? Quick DASH 40 Rehab Re-assessment Subjective Subjective My shoulder doesn't seem any better. Objective Objective Notes Pt continues to be seen weekly in order to address R shoulder weakness. Each session, pt engages in AROM, AAROM, and strengthening exercises to R shoulder. Pt also receives PROM manual stretching to right UE at shoulder in all planes; flexion, abduction, ER, and IR . No modalities are provided due to contraindication of CA diagnosis. Assessment Progress Assessment Slower Than Expected Assessment Notes Pt consistent about attending therapy sessions weekly. Pt continues to complain of R shoulder pain reaching a 7/10 at worst. At this time, pt does not notice improvement with shoulder. Pt believes she may have injured right shoulder more ~1 month ago during a fall at home. Pt's strength in R shoulder does seem to be a bit improved since initial evaluation reaching a 3/5 throughout right shoulder. Current AROM R shoulder Flex: 120 degrees Abd: 90 degrees ER: 50 degrees IR: [address] and 4 Goals Not Met See below Revised Goals ST, 3, and, 5 LT-5 Plan Plan Continue with OT plan of care at this time Frequency of Therapy 1-2x's a week Duration of therapy 4 more weeks Time and Billing Re-Eval Time 11 Re-Eval Billing Units 1 PHYSICIAN CERTIFICATION: I certify the specified therapy services for Mariaelena Meza are required, authorized, and reviewed every 30 days.
== END 2024-02-11 16:10 | disposition home or self-care (01) ==
LOC: OT 15:00
PROVIDERS: Visit Provider Nurse Practitioner Family
DX: M25.511 Pain in right shoulder (principal)
CPT/HCPCS: 97010; 97014; 97110; 97140; 97164; 97165; 97530; G0283

== ENCOUNTER 2024-02-19 11:38 | Outpatient (POV) | payer MEDICARE, OTHER, SELFPAY ==
[2024-02-19 12:02] VITALS: BP 107/57; PULSE 77; RESP 18; O2SAT 97; BMI 25.8
--- NOTE | 2024-02-19 12:14 | EXP.PAIN.SOA ---
[facility] Disclaimer: The information contained in this section may have been updated after the patient was seen, as this information can be updated by other users. Medical History Pathologic fracture of vertebrae Emphysema/COPD History of transient ischemic attack (TIA) Diarrhea Lung cancer History of open sigmoidectomy Port-A-Cath in place History of chemotherapy UTI (urinary tract infection) Arthritis Hypertension HLD (hyperlipidemia) Cancer adrenal History of radiation therapy Surgical History History of arthroscopy of left shoulder History of arthroscopy of both knees Hx of tubal ligation Hx of hysterectomy, total History of colonoscopy Family History Other Cancer Diabetes Hyperlipidemia Hypertension Stroke Thyroid disorder Social History Smoking Status: Former smoker alcohol intake: never substance use type: denies use current occupational status: retired Travel in the last 8 weeks: None household members: family and none housing: house caffeine: Yes PM Subjective & Objective Subjective Subjective:: Patient is a pleasant 73-year-old female who presents today for follow-up. Today she rates her pain a 7 out of 10. Patient states she has had 1 fall from her last visit. She states where she tripped over her dog. Patient states she is not really sure if she ended up falling on her shoulder or not easy at all however she has been experiencing worsening pain in that joint. Patient does state that she is scheduled for an MRI coming up next week for this. Patient however does also state that she continues to have her chronic pain throughout her low back with radiating symptoms into her lower extremities. Patient states that she feels like she does not get around as well. She states she has to stop and frequently take breaks. Patient does feel like that she wants to do something more consistent and is asking questions regarding the pump. Patient is prescribed pregabalin 50 mg twice a day and Percocet 10 mg 3 times a day. She states that she does still take her pregabalin however she rarely uses the Percocet unless it is really bad. Her Horacio has been reviewed and is appropriate. Review of Systems: General: No recent weight changes, no fever, no sleep disturbances Respiratory: No cough, no shortness of air, no recurring pulmonary infections Cardiovascular/peripheral vascular: No chest pain, no palpitations, no edema, no shortness of breath Gastrointestinal: No new onset incontinence, normal bowel movements reported Genitourinary: No new onset incontinence Musculoskeletal: Chronic low back pain, leg pain, right shoulder pain Psychiatric: [Normal mood/affect] Neurological: [Denies weakness in extremities], [denies balance issues] Pain at rest (0-10 scale): 7 Objective Objective:: Physical Exam: General: Alert and oriented x3, no acute distress, pleasant and cooperative Lungs: Respirations even and unlabored, symmetrical chest expansion Eyes: PERRL Musculoskeletal: Flexion and extension of lumbar [spine] somewhat guarded secondary to pain, [antalgic gait noted] Neurological: Speech clear, no gross sensory deficit Has patient had previous pain injection?: No Conservative treatment options previously tried: Home exercise plan Length of treatment: Longer than 6 weeks and Prescription medications Length of treatment: Longer than 6 weeks Meds Home Medications and Allergies Home Medications Medication Instructions Recorded Confirmed Type aspirin 81 mg capsule 81 mg PO DAILY antiplatelet 04/22/23 02/03/24 History fexofenadine 180 mg tablet 180 mg PO DAILY Allergy Symptoms 04/22/23 02/03/24 History lansoprazole 30 mg capsule,delayed 30 mg PO DAILY Acid Reflux 04/22/23 02/03/24 History release magnesium 200 mg tablet 200 mg PO DAILY Supplement 04/22/23 02/03/24 History tiotxbesvyto-rkwhemss-zajzda tablet 1 tab PO DAILY Supplement 04/22/23 02/03/24 History oxycodone-acetaminophen 10 mg-325 1 tab PO TID PRN Pain 04/22/23 02/03/24 History mg tablet sennosides 8.6 mg capsule (senna) 8.6 mg PO BID PRN Constipation 04/22/23 02/03/24 History levothyroxine 50 mcg tablet 50 mcg PO DAILY Thyroid 04/23/23 02/03/24 History metoprolol succinate 100 mg 100 mg PO DAILY High Blood Pressure 04/23/23 02/03/24 History tablet,extended release 24 hr pregabalin 50 mg capsule 50 mg PO DAILY 08/18/23 02/03/24 History budesonide 3 mg mg PO 02/03/24 02/03/24 History capsule,delayed,extended release lancets (Accu-Chek Softclix #100 ea 02/03/24 02/03/24 History Lancets) linagliptin 5 mg tablet (Tradjenta) 5 mg PO DAILY 02/03/24 02/03/24 History New Prescriptions to Start Prescriptions: Allergies Allergy/AdvReac Type Severity Reaction Status Date / Time No Known Allergies Allergy Verified 02/03/24 13:13 Assessment and Plan *Assessment and plan (1) Lumbar facet arthropathy: Status: Acute Category: Medical Code(s): M47.816 - Spondylosis without myelopathy or radiculopathy, lumbar region (2) Spinal stenosis of lumbar region: Status: Acute Qualifiers: Neurogenic claudication status: with neurogenic claudication Qualified Code(s): M48.062 - Spinal stenosis, lumbar region with neurogenic claudication Category: Medical Code(s): M48.061 - Spinal stenosis, lumbar region without neurogenic claudication (3) Lumbar nerve root impingement: Status: Acute Category: Medical Code(s): M54.16 - Radiculopathy, lumbar region (4) Compression fracture: Status: Acute Category: Medical (5) Low back pain: Status: Acute Qualifiers: Chronicity: chronic Back pain laterality: bilateral Sciatica presence: without sciatica Qualified Code(s): M54.50 - Low back pain, unspecified; G89.29 - Other chronic pain Category: Medical Code(s): M54.50 - Low back pain, unspecified (6) Degenerative disc disease, lumbar: Status: Acute Category: Medical Code(s): M51.36 - Other intervertebral disc degeneration, lumbar region Plan Patient continues to experience significant pain throughout her low back with limited range of motion of her lumbar spine. I have discussed with patient in future she may benefit from a intrathecal pain pump trial or stimulator trial. Risk and benefits and educational handouts were given to the patient during today's visit. Patient would like to proceed forward with this option. I will order the patient a psychological evaluation and if she is deemed an appropriate candidate we will proceed forward with a trial at a later date. I did also discuss at length with the patient that she still may benefit from additional injection therapy including possible right intra-articular shoulder injection or lumbar epidurals. Patient at this time would like to just proceed forward with the psych eval. Patient will return to clinic in 1 month for reevaluation of symptoms and plan of care. Patient has been instructed to contact the clinic with any concerns before the next appointment. Dr. Ron has reviewed this note and agrees with this plan of care. This note was dictated using voice recognition software and make contain errors or omissions.
== END 2024-02-19 23:59 | disposition home or self-care (01) ==
LOC: SC.PAIN 11:39
PROVIDERS: PCP Internal Medicine Adolescent Medicine; Visit Provider Nurse Practitioner Family
DX: M47.816 Spondylosis without myelopathy or radiculopathy, lumbar region (principal); M48.062 Spinal stenosis, lumbar region with neurogenic claudication; M54.16 Radiculopathy, lumbar region; M54.50 Low back pain, unspecified; G89.29 Other chronic pain; M51.36 Other intervertebral disc degeneration, lumbar region
CPT/HCPCS: 99212; G0463

== ENCOUNTER 2024-02-24 17:06 | Outpatient (CLI) | payer MEDICARE, OTHER, SELFPAY ==
--- NOTE | 2024-02-24 17:21 | MR_ITS ---
FINAL REPORT CLINICAL HISTORY: SHOULDER PAIN RIGHT fall x 3 months ago and hit shoulder limited rom FINDINGS: Multiplanar MR imaging of the right shoulder was performed without contrast. A small intrasubstance tear is seen of the distal supraspinatus tendon. No full-thickness rotator cuff tear is identified. There is mild AC joint arthrosis. No abnormal fluid is seen in the subacromial/subdeltoid bursa. The glenoid labrum is intact. The long head of the biceps tendon is intact. A small glenohumeral joint effusion is seen. There is no evidence of fracture or dislocation. The musculature is intact. There is no evidence of soft tissue mass. IMPRESSION: Small intrasubstance tear of the distal supraspinatus tendon. No full-thickness rotator cuff tear or labral tear. Authenticated and ERN
== END 2024-02-24 23:59 | disposition home or self-care (01) ==
LOC: RAD 17:07
PROVIDERS: PCP Internal Medicine Adolescent Medicine; Visit Provider Internal Medicine Adolescent Medicine
DX: M25.511 Pain in right shoulder (principal)
CPT/HCPCS: 73221

== ENCOUNTER 2024-03-09 17:00 | Outpatient (RCR) | payer MEDICARE, OTHER, SELFPAY ==
--- NOTE | 2023-12-09 18:23 | HMH.PTOPEV ---
PT Outpatient Evaluation Rehab PT Outpatient Evaluation Start: 12/09/23 14:40 Freq: Status: Active Protocol: Document 12/09/23 14:40 GARCIADeniz (Rec: 12/09/23 18:23 ALLISON [id number]) E-signed By Baylee Samuels, PT Outpatient Therapy Subjective History Subjective History Pt is a 73 y/o female who reports to PT for physical deconditioning. Pt reports multiple health issues resulting in decreased endurance and strength. Pt reports she was diagnosed with lung, adrenal and brain cancer in 2019. Pt reports she receivied immunotherapy with resulted in chronic diarrhea and dehydration. Pt reports she became very sedentary due to fatigue and limited activity tolerance from this. Pt also reports she had a CVA on 08/18/23 affecting her right side. Pt reports she had rehab following the stroke but still continues to notice right sided weakness and states she often bumps into stuff with her right side. Pt reports ~9 months ago she had sudden onset of mid-low back pain with findings of compression fractures of T11, T12 and L1 that were treated with kyphoplasty. Pt reports she continues to experience moderate-severe mid-low back pain with activity that improves with rest. Pt denies distal symptoms or numbness/ tingling. Pt reports she has tried to wear a back brace to assist with pain however it puts pressure on her hernia and she is unable to tolerate it. Pt reports she has had multiple injections in her back at pain management and is considering getting a pain pump. Pt reports she uses a rollator walker for ambulation , states she is only able to walk ~40 ft before needing to rest due to back pain and fatigue. Pt states her knees often feel like they will give out on her with prolonged activity due to weakness. Pt also reports she often feels dizzy and light-headed when she over exerts herself. Pt reports she fell 3 weeks ago while trying to step over her dog, states she landed on her right side. Pt denies serious injuries from the fall. Pt reports she lives alone and requires increased time to perform ADLs/iADLs due to back pain, weakness and fatigue. Pt reports she has to perform all cooking activities seated due to back pain. Pt also reports she has a lot of difficulty loading/unloading her rollator walker into her Tundra trunk. Medical History: CVA affecting R side 08/18/23 with HHPT/OT following, Osteoporosis, Hypertension, Hyperlipidemia, Emphysema/COPD, Port-A-Cath, Arthritis, Type II Diabetes, Parkinson's like tremor of arms & L leg prominent when fatigued 5x sit to stand: 58 from standard chair with UE support New diagnosis of cancer in past 12 No: Lung, adrenal and brain months? cancer diagnosed in 2019 Chief Complaint Pain,Weakness Symptom Type Ache,Sharp,Dull Symptoms Relieved By Rest/Positioning,Heat Symptoms Aggravated By Standing,Bending/Stooping, Physical Activity,Walking, Lifting Prior Functional Limitations None Current Functional Limitations Lifting,Housework,Dressing, Sleeping,Standing,Squatting, Walking,Stairs,Balance,Bending /Stooping Symptom Description Constant but Variable Level of pain today (0-10) 4 Pain scale - at its best (0-10) 2 Pain scale - at its worst (0-10) 10 Lumbopelvic Eval Posture Thoracic Spine Posture Standing Position Increased Kyphosis Lumbar Spine Posture Standing Position Decreased Lordosis Range of Motion Lumbar Spine Active Flexion Range of 65 Motion (degrees) Lumbar Spine Active Extension Range of 10 Motion (degrees) Left Lumbar Spine Lateral Flexion Active 10 Range of Motion (degrees) Right Lumbar Spine Lateral Flexion 10 Active Range of Motion (degrees) Manual Muscle Test Bilateral Knee Extension Strength Grade 4- Good- Knee Flexion Strength Grade 4- Good- Hip Flexion Strength Grade 3+ Fair+ Hip Abduction Strength Grade 4- Good- Hip Adduction Strength Grade 4- Good- Hip Extension Strength Grade 3+ Fair+ Ankle Dorsiflexion Strength Grade 4 Good Outpatient Therapy Assessment Impairments Problems/Impairmments Impaired Range of Motion, Impaired Strength,Impaired Endurance,Impaired Transfers, Impaired Walking,Impaired Standing,Impaired Lifting, Impaired Dressing,Impaired Shower/Bathing,Impaired Household Care,Impaired Stair Climbing,Impaired Squatting, Impaired Bending,Impaired Recreational Activities, Impaired Balance,Subjective C/ O Pain,Impaired Self Care/Self Management Prognosis Rehab Potential Good Comment Barriers to progress include chronic back pain and multiple comorbidities Clinical Impression Consistent with Diagnosis Yes Short Term Goals Number of Weeks 3 Increase Strength Yes: Improve LE MMT by half grade to assist with function Increase Endurance Yes: Perform NuStep for 5-10 minutes with RPE 5/10 or less Improve Transfers Yes: improve 5x sit to stand score to 48 or less to dec fall risk Improve Ability For Household Care Yes Improve Self Care/Self Management Yes Patient to be Ind w/ HEP Yes [facility]ci Goals Number of Weeks 6 Increase Strength Yes: Improve LE MMT to 4-4+/5 grossly to assist with function Increase Endurance Yes: Perform NuStep for 10-15 minutes with RPE 5/10 or less Improve Transfers Yes: Improve 5x sit to stand score to 38 or less to dec fall risk Increase Ability to Walk Yes: 100 ft with rollator with RPE 5/10 or less to assist with iADLs Restore Ability to Lift Objects to Yes: Able to transfer rollator Shoulder Level in/out of truck with proper mechanics Patient to be Ind w/ Advanced HEP Yes Outpatient Therapy Plan of Care Treatment Plan May Include Therapeutic Exercise Including Home Yes Exercise Program Manual Therapy Techniques Yes Neuromuscular Re-education Yes Therapeutic Activities to Return to Yes Previous Functional/Work Level Gait Training Yes ADL/Self Care Education Yes Electrical Stimulation Yes Ultrasound/Phonophoresis Yes Iontophoresis Yes Massage Yes Group Therapy for Medicare Yes Eval/Re-Eval Yes Frequency Times per week 2 Duration Number of Weeks 4-6 Addendums This patient is a candidate for social No or vocational rehab? Patient/Guardian verbally acknowledges Yes understanding of treatment program and consents to further treatment? Patient/Guardian verbally acknowledges Yes understanding of diagnosis, prognosis and goals for treatment? Eval Complexity PT Charges 14083 - Moderate Complexity Shoulder/Elbow Eval Shoulder Objective Measurements Elbow Objective Measurements PHYSICIAN CERTIFICATION: I certify the specified therapy services for Mariaelena Meza are required, authorized, and reviewed every 30 days.
--- NOTE | 2024-01-07 15:15 | HMH.RHREAS ---
Rehab Reassessment Rehab OP Re-assessment Start: 12/09/23 14:40 Freq: Status: Active Protocol: Document 01/07/24 14:06 ALLISON (Rec: 01/07/24 15:15 ALLISON [id number]) E-signed By Baylee Samuels PT Rehab Re-assessment Subjective Subjective Pt reports she feels 45% improved since starting PT. Pt reports strength and endurance has improved some overall. Pt reports she has been performing her HEP when she feels well enough. Pt states she still has to perform most of her housework seated due to back pain. Pt also reports she has been using her walker for all ambulation now due to back pain. Pt reports her doctor suggested her to see a neurologist for her back pain. Pt states she saw her oncologist and had a CT scan yesterday with no changes noted. Objective Objective Notes LE MMT: hip flex 4-/5, hip abd /add 4-/5, knee ext 4/5, knee flex 4-/5, ankle DF 4+/5 5x sit to stand: 45 from standard chair with UE support Assessment Assessment Notes Pt has attended 5 PT visits consisting of aerobic exercise , LE strengthening, and HEP with fair-good tolerance. Pt demonstrated improved hip flexion and knee extension strength and 5x sit to stand score this date compared to the initial evaluation. Overall, the pt would conitnue to benefit from skilled PT to further improve LE strength, endurance, gait/balance and functional activity tolerance to improve overall QOL and decrease fall risk. Patient goals met ST/6 Goals Not Met strength, improved household care, LTG Revised Goals n/a Plan Plan Continue initial POC Frequency of Therapy 2x/week Duration of therapy 4 more weeks Time and Billing Re-Eval Time 15 Re-Eval Billing Units 1 PHYSICIAN CERTIFICATION: I certify the specified therapy services for Mariaelena Meza are required, authorized, and reviewed every 30 days.
--- NOTE | 2024-02-11 17:02 | HMH.RHREAS ---
Rehab Reassessment Rehab OP Re-assessment Start: 12/09/23 14:40 Freq: Status: Active Protocol: Document 02/11/24 16:06 ALLISON (Rec: 02/11/24 17:02 ALLISON [id number]) E-signed By Baylee Samuels PT Rehab Re-assessment Subjective Subjective Pt reports she feels that her strength and endurance has improved but is limited in what she can do due to severe low back pain. Pt reports pain is centralized to her low back and sometimes refers into the left hip. Pt denies more distal symptoms or paresthesia . Pt reports she has to use a walker for ambulation to lean on due to back pain, not for balance. Pt reports LBP is aggravated by standing/walking and improves immediately with rest. Pt reports pain at worst as 10/10 on VAS with activity. Objective Objective Notes Lumbar AROM: flex 90, ext 15, LF 10 BLE strength: hip flex 4/5, hip abd/add 4-/5, hip ext 4-/5 , knee flex 4+/5, knee ext 4+/ 5, ankle DF 5/5 5x sit to stand: 29 from standard chair with UE support Assessment Assessment Notes Pt has attended 8 PT visits consisting of aerobic exercise , LE strengthening and HEP with good tolerance. Pt demonstrated improved LE strength, endurance with aerobic exercise, and 5x sit to stand time this date compared to the pervious reassessment. Pt reports ADLs/ iADLs are limited due to poor standing/walking tolerance due to low back pain. Pt also reports she only uses a walker to assist with LBP and muscular fatigue versus balance. PT will request order for LBP from referring physician. Once order is obtained, will shift treatment towards LBP to assist with improving pain, LE strength, posture and functional mobility. Patient goals met ST/6 LT/6 Goals Not Met household care, ambulation, transfers Revised Goals Add to LT. Improve LBP to 6/10 at worst to improve overall QOL 2. Stand/walk 10' with pain 6/ 10 or less to assist with ADLs /iADLs Plan Plan Continue POC Frequency of Therapy 2x/week Duration of therapy 4 more weeks Time and Billing Re-Eval Time 25 Re-Eval Billing Units 1 PHYSICIAN CERTIFICATION: I certify the specified therapy services for Artura N Meza are required, authorized, and reviewed every 30 days.
== END 2024-03-09 18:00 | disposition home or self-care (01) ==
LOC: PT 17:00
PROVIDERS: Visit Provider Nurse Practitioner Family
DX: R53.81 Other malaise (principal)
CPT/HCPCS: 97010; 97110; 97163; 97164; 97530

== ENCOUNTER 2024-04-08 12:51 | Outpatient (POV) | payer MEDICARE, OTHER, SELFPAY ==
[2024-04-08 13:21] VITALS: BP 100/71; PULSE 80; RESP 16; O2SAT 97; BMI 26.3
--- NOTE | 2024-04-08 13:48 | A.OFFVIS_ITS ---
[facility] Disclaimer: The information contained in this section may have been updated after the patient was seen, as this information can be updated by other users. Medical History Pathologic fracture of vertebrae Emphysema/COPD History of transient ischemic attack (TIA) Diarrhea Lung cancer History of open sigmoidectomy Port-A-Cath in place History of chemotherapy UTI (urinary tract infection) Arthritis Hypertension HLD (hyperlipidemia) Cancer adrenal History of radiation therapy Surgical History History of arthroscopy of left shoulder History of arthroscopy of both knees Hx of tubal ligation Hx of hysterectomy, total History of colonoscopy Family History Other Cancer Diabetes Hyperlipidemia Hypertension Stroke Thyroid disorder Social History Smoking Status: Former smoker alcohol intake: never substance use type: denies use current occupational status: retired Travel in the last 8 weeks: None household members: family and none housing: house caffeine: Yes PM Subjective & Objective Subjective Subjective:: Patient is a pleasant 73-year-old female who presents today for follow-up. Today she rates her pain a 1 out of 10. Patient does state from her last visit she did have physical therapy and that they were working around her right shoulder but she was experiencing worsening pain. Patient states she ended up getting an MRI and that they did state that it was an injury that typically they would not necessarily fix unless she was more active like a sports play or something along those lines. Patient does state that the right shoulder does occasionally worsen and that it can be very limited with range of movement. Patient does state that she is still using her compounded cream and was not sure if she could try this on the shoulder. Patient does also state that she has not completely decided on possible injection for her shoulder. Patient was previously prescribed pregabalin and Percocet however she states that she has not taken the Percocet for about 2 months and that the pregabalin she just takes once a day. She states she does not need refills. Her Horacio has been reviewed and is appropriate. Review of Systems: General: No recent weight changes, no fever, no sleep disturbances Respiratory: No cough, no shortness of air, no recurring pulmonary infections Cardiovascular/peripheral vascular: No chest pain, no palpitations, no edema, no shortness of breath Gastrointestinal: No new onset incontinence, normal bowel movements reported Genitourinary: No new onset incontinence Musculoskeletal: Right shoulder pain Psychiatric: [Normal mood/affect] Neurological: [Denies weakness in extremities], [denies balance issues] Pain at rest (0-10 scale): 1 Objective Objective:: Physical Exam: General: Alert and oriented x3, no acute distress, pleasant and cooperative Lungs: Respirations even and unlabored, symmetrical chest expansion Eyes: PERRL Musculoskeletal: Flexion and extension of right shoulder somewhat guarded secondary to pain, [antalgic gait noted] Neurological: Speech clear, no gross sensory deficit Has patient had previous pain injection?: No Conservative treatment options previously tried: Home exercise plan Length of treatment: Longer than 6 weeks and Physical Therapy Length of treatment: Ongoing Meds Home Medications and Allergies Home Medications ?Medication ?Instructions ?Recorded ?Confirmed ?Type aspirin 81 mg capsule 81 mg PO DAILY antiplatelet 04/22/23 04/08/24 History fexofenadine 180 mg tablet 180 mg PO DAILY Allergy Symptoms 04/22/23 04/08/24 History lansoprazole 30 mg capsule,delayed 30 mg PO DAILY Acid Reflux 04/22/23 04/08/24 History release magnesium 200 mg tablet 200 mg PO DAILY Supplement 04/22/23 04/08/24 History kumnrmmubqby-ojnwchsg-bhavtj tablet 1 tab PO DAILY Supplement 04/22/23 04/08/24 History oxycodone-acetaminophen 10 mg-325 1 tab PO TID PRN Pain 04/22/23 04/08/24 Hist ory mg tablet sennosides 8.6 mg capsule (senna) 8.6 mg PO BID PRN Constipation 04/22/23 04/08/24 History levothyroxine 50 mcg tablet 50 mcg PO DAILY Thyroid 04/23/23 04/08/24 History metoprolol succinate 100 mg 100 mg PO DAILY High Blood Pressure 04/23/23 04/08/24 History tablet,extended release 24 hr pregabalin 50 mg capsule 50 mg PO DAILY 08/18/23 04/08/24 History budesonide 3 mg 3 mg PO DIRECTED Breathing 02/03/24 04/08/24 History capsule,delayed,extended release Problems lancets (Accu-Chek Softclix #100 ea 02/03/24 04/08/24 History Lancets) linagliptin 5 mg tablet (Tradjenta) 5 mg PO DAILY 02/03/24 04/08/24 History New Prescriptions to Start Prescriptions: Allergies Allergy/AdvReac Type Severity Reaction Status Date / Time No Known Allergies Allergy Verified 02/03/24 13:13 Assessment and Plan *Assessment and plan (1) Rotator cuff tear arthropathy of right shoulder: Status: Acute Category: Medical Code(s): M75.101 - Unspecified rotator cuff tear or rupture of right shoulder, not specified as traumatic; M12.811 - Other specific arthropathies, not elsewhere classified, right shoulder Plan I did review over with the patient's MRI of her right shoulder regarding her rotator cuff tear. I did discuss with patient that she may benefit from referral to orthopedics. Patient was counseled that she can call our office and let us know if she would like us to send this referral at a later date. I did also review over possible injection therapy. At this time patient would like more time to think on it. Patient will contact our office for her next follow- up Patient has been instructed to contact the clinic with any concerns before the next appointment. Dr. Ron has reviewed this note and agrees with this plan of care. This note was dictated using voice recognition software and make contain errors or omissions. All injections are used with Lidocaine or Bupivacaine and Depo Medrol.
== END 2024-04-08 23:59 | disposition home or self-care (01) ==
LOC: SC.PAIN 12:52
PROVIDERS: PCP Internal Medicine Adolescent Medicine; Visit Provider Nurse Practitioner Family
DX: M75.101 Unspecified rotator cuff tear or rupture of right shoulder, not specified as traumatic (principal); M12.811 Other specific arthropathies, not elsewhere classified, right shoulder; Z86.73 Personal history of transient ischemic attack (TIA), and cerebral infarction without residual deficits; Z87.891 Personal history of nicotine dependence; Z79.899 Other long term (current) drug therapy
CPT/HCPCS: 99212; G0463

== ENCOUNTER 2024-08-13 12:35 | Outpatient (CLI) | payer MEDICARE, OTHER, SELFPAY ==
--- NOTE | 2024-08-13 12:43 | CA_ITS ---
APPROVED REPORT EXAM: Comprehensive 2D, Doppler, and color-flow Echocardiogram Automat Car Attendant: DOROTEO Lebron, RVS Ht: 5 ft 8 in Wt: 171lbs BSA: 1.91 BP: 120/75 mmHg Indications: COPD. Dyspnea,HTN, HLD Echo Enhancing Agent Comments: Poor acoustic properties throughout exam with lung impedence 2D Dimensions IVSd 1.01 cm F: 0.6-1.0 LVEF (Visual) 67.00 % PWd 1.12 cm F: 0.6 - 1.0 LA Volume 42.90 mL LVDd 5.09 cm F: 3.9 - 5.3 LA Volume Index [id number] mL/m2 (M/F) 16-34 LVDs 3.19 cm F: 2.2 - 3.5 EF AP4 50.40 % Aortic Root 3.01 cm F: 2.7 - 3.3 GL Strain -14.9 % Left Atrium 3.96 cm F: 2.7 - 3.8 RVID Base (AP4) 3.25 cm (M/F) 2.5-4.1 LVOT 1.92 cm (M/F) 1.5-2.5 M-Mode Dimensions LVDd 5.09 cm (3.5-5.7) Ao Diam 2.99 cm (2.0-3.7) LVDs 3.26 cm (3.5-5.7) IVSd 1.01 cm (0.6-1.1) PWd 1.12 cm (0.6-1.1) EF (Teich) 61.70% EPSs 0.40 cm FS 34.57% EDV (Teich) 111.70 mL TAPSE 1.64 (<1.7) ESV (Teich) 42.80 mL LV Diastology E Decel Time 244 (160-240 msec) E/A Ratio 0.83 MED E' 6.5 (>= 7 cm/sec) MED A' 7.60 cm/s E'/MED E' Ratio 11.29 (<= 14) LAT E' 7.6 (>= 10 cm/sec) LAT A' 7.00 cm/s E/LAT E' Ratio 9.66 (<= 14) Aortic Valve LVOT Max 79.0 (70-110 cm/s) HONEY Index 0.73 cm2/m2 LVOT VTI 14.34 cm AoV Peak Alex. 146.0 (50-130 cm/s) AO Mean GR. 4.40 (<5 mmHg) AO VTI 30.0 (18-25 cm) HONEY (VTI) 1.39 (2.5-4.5 cm2) Mitral Valve MV E Max Alex. 73.0 (40-130 cm/s) MV A Velocity 89.0 (40-130 cm/s) E/A Ratio 0.83 MV Decel. Time 244 (160-240 ms) MV PHT 56.0 ms Tricuspid Valve TR P. Velocity 227.00 cm/s RAP Estimate 10.00 mmHg RVSP 30.70 mmHg Left Ventricle The left ventricle is normal size. The left ventricular systolic function is normal. The left ventricular ejection fraction is within the normal range. There is increased LV wall thickness. There is normal LV segmental wall motion. Transmitral Doppler flow pattern suggests impaired LV relaxation. LVEF is 65%. Right Ventricle Right ventricle is mildly to moderately dilated. Right ventricle is mildly hypokinetic. Atria Left atrium is mildly dilated. Right atrium is mildly dilated. There is no Doppler evidence of interatrial shunt. Aortic Valve The aortic valve is mildly thickened. There is no aortic valvular stenosis. Trace aortic regurgitation. Mitral Valve The mitral valve is mildly thickened. No evidence of mitral valve stenosis. Mild mitral regurgitation. Tricuspid Valve Tricuspid valve is grossly normal in structure and function. Mild tricuspid regurgitation. RVSP is 20-25 mmHg. Pulmonic Valve The pulmonary valve is normal in structure. Mild pulmonic regurgitation. Great Vessels The aortic root is normal in size. The ascending aorta is not well visualized. IVC is normal in size and collapses >50% with inspiration. Pericardium There is no pericardial effusion. Other Information Study Quality: Technically Difficult Conclusion Technically difficult study due to poor accoustic windows. Normal LV systolic function. Mild to moderate RV dilation with mild reduction in RV function. Mild MR, mild TR, mild PI. RVSP 20-25 mmHg. Electronically signed by : Elzbieta Guido MD 08/29/2024 17:24:13
== END 2024-08-13 23:59 | disposition home or self-care (01) ==
LOC: RT 12:37
PROVIDERS: PCP Internal Medicine Adolescent Medicine; Visit Provider Nurse Practitioner Family
DX: I51.7 Cardiomegaly (principal); I34.0 Nonrheumatic mitral (valve) insufficiency; I36.1 Nonrheumatic tricuspid (valve) insufficiency; I37.1 Nonrheumatic pulmonary valve insufficiency; R06.00 Dyspnea, unspecified
CPT/HCPCS: 93306

== ENCOUNTER 2024-09-10 10:47 | Outpatient (CLI) | payer MEDICARE, OTHER, SELFPAY | END 2024-09-10 23:59 | disposition home or self-care (01) | LOC: LAB 10:48 | PROVIDERS: PCP Internal Medicine Adolescent Medicine; Visit Provider Internal Medicine Adolescent Medicine | DX: R10.2 Pelvic and perineal pain (principal) | CPT/HCPCS: 87086; 87088; 87186 ==

== ENCOUNTER 2024-09-30 10:30 | Outpatient (POV) | payer MEDICARE, OTHER, SELFPAY ==
[2024-09-30 11:04] VITALS: BP 113/71; PULSE 76; RESP 14; O2SAT 98; BMI 26.6
--- NOTE | 2024-09-30 11:11 | EXP.PAIN.SOA ---
[facility] Disclaimer: The information contained in this section may have been updated after the patient was seen, as this information can be updated by other users. Medical History Pathologic fracture of vertebrae Emphysema/COPD History of transient ischemic attack (TIA) Diarrhea Lung cancer History of open sigmoidectomy Port-A-Cath in place History of chemotherapy UTI (urinary tract infection) Arthritis Hypertension HLD (hyperlipidemia) Cancer adrenal History of radiation therapy Surgical History History of arthroscopy of left shoulder History of arthroscopy of both knees Hx of tubal ligation Hx of hysterectomy, total History of colonoscopy Family History Other Cancer Diabetes Hyperlipidemia Hypertension Stroke Thyroid disorder Social History Smoking Status: Former smoker alcohol intake: never substance use type: denies use current occupational status: other Travel in the last 8 weeks: None household members: family and none housing: house caffeine: Yes PM Subjective & Objective Subjective Subjective:: Patient is a pleasant 74-year-old female who presents today for worsening pain. Today she rates her pain a 7 out of 10. She states that she has not had any new falls or injuries however the pain just continues to be an ongoing issue. She states nothing seems to make any difference. She has been on oral medications including pregabalin and Percocet and nothing really seems to help. She has been prescribed compounded cream from our office. Patient does state that she would like to see about proceeding forward with a pain pump trial. Her Horacio has been reviewed and is appropriate. Review of Systems: General: No recent weight changes, no fever, no sleep disturbances Respiratory: No cough, no shortness of air, no recurring pulmonary infections Cardiovascular/peripheral vascular: No chest pain, no palpitations, no edema, no shortness of breath Gastrointestinal: No new onset incontinence, normal bowel movements reported Genitourinary: No new onset incontinence Musculoskeletal: Chronic back pain Psychiatric: [Normal mood/affect] Neurological: [Denies weakness in extremities], [denies balance issues] Pain at rest (0-10 scale): 7 Objective Objective:: Physical Exam: General: Alert and oriented x3, no acute distress, pleasant and cooperative Lungs: Respirations even and unlabored, symmetrical chest expansion Eyes: PERRL Musculoskeletal: Flexion and extension of lumbar [spine] somewhat guarded secondary to pain, [antalgic gait noted] Neurological: Speech clear, no gross sensory deficit Has patient had previous pain injection?: No Conservative treatment options previously tried: Home exercise plan Length of treatment: Longer than 12 weeks Meds Home Medications and Allergies Home Medications ?Medication ?Instructions ?Recorded ?Confirmed ?Type aspirin 81 mg capsule 81 mg PO DAILY antiplatelet 04/22/23 09/30/24 History fexofenadine 180 mg tablet 180 mg PO DAILY Allergy Symptoms 04/22/23 09/30/24 History lansoprazole 30 mg capsule,delayed 30 mg PO DAILY Acid Reflux 04/22/23 09/30/24 History release magnesium 200 mg tablet 200 mg PO DAILY Supplement 04/22/23 09/30/24 History jmjjbyqllabn-alcvfzro-ipagyu tablet 1 tab PO DAILY Supplement 04/22/23 09/30/24 History oxycodone-acetaminophen 10 mg-325 1 tab PO TID PRN Pain 04/22/23 09/30/24 History mg tablet sennosides 8.6 mg capsule (senna) 8.6 mg PO BID PRN Constipation 04/22/23 09/30/24 History levothyroxine 50 mcg tablet 50 mcg PO DAILY Thyroid 04/23/23 09/30/24 History metoprolol succinate 100 mg 100 mg PO DAILY High Blood Pressure 04/23/23 09/30/24 History tablet,extended release 24 hr pregabalin 50 mg capsule 50 mg PO DAILY 08/18/23 09/30/24 History budesonide 3 mg 3 mg PO DIRECTED Breathing 02/03/24 09/30/24 History capsule,delayed,extended release Problems lancets (Accu-Chek Softclix #100 ea 02/03/24 09/30/24 History Lancets) linagliptin 5 mg tablet (Tradjenta) 5 mg PO DAILY 02/03/24 09/30/24 History New Prescriptions to Start Prescriptions: Allergies Allergy/AdvReac Type Severity Reaction Status Date / Time No Known Allergies Allergy Verified 02/03/24 13:13 Assessment and Plan *Assessment and plan (1) Degenerative disc disease, lumbar: Status: Acute Category: Medical Code(s): M51.369 - Other intervertebral disc degeneration, lumbar region without mention of lumbar back pain or lower extremity pain (2) Compression fracture: Status: Acute Category: Medical (3) Lumbar facet arthropathy: Status: Acute Category: Medical Code(s): M47.816 - Spondylosis without myelopathy or radiculopathy, lumbar region (4) Low back pain: Status: Acute Qualifiers: Chronicity: chronic Back pain laterality: bilateral Sciatica presence: without sciatica Qualified Code(s): M54.50 - Low back pain, unspecified; G89.29 - Other chronic pain Category: Medical Code(s): M54.50 - Low back pain, unspecified (5) Spinal stenosis of lumbar region: Status: Acute Qualifiers: Neurogenic claudication status: with neurogenic claudication Qualified Code(s): M48.062 - Spinal stenosis, lumbar region with neurogenic claudication Category: Medical Code(s): M48.061 - Spinal stenosis, lumbar region without neurogenic claudication Plan Patient has multiple pain areas throughout her back with also history of compression fracture. I did review over the risk and benefits of the intrathecal pain pump trial and she would like to proceed forward with this plan of care. Patient has had a psychological evaluation in the past that was deemed an appropriate candidate however it is outside the 6-month window. We will resubmit for a new psychological evaluation and she is deemed an appropriate candidate we will proceed forward with this plan of care at a later date. Patient will return to clinic in 1 month for reevaluation of symptoms and plan of care. Patient has been instructed to contact the clinic with any concerns before the next appointment. Dr. Ron has reviewed this note and agrees with this plan of care. This note was dictated using voice recognition software and make contain errors or omissions. All injections are used with Lidocaine, Bupivacaine and Depo Medrol. Occasionally urine drug screen is needed to verify patient's compliance with our office pain contract. This is ordered based off specific treatments related to chronic pain with the potential to abuse certain medications.
== END 2024-09-30 23:59 | disposition home or self-care (01) ==
LOC: SC.PAIN 10:32
PROVIDERS: PCP Internal Medicine Adolescent Medicine; Visit Provider Nurse Practitioner Family
DX: M47.816 Spondylosis without myelopathy or radiculopathy, lumbar region (principal); M54.50 Low back pain, unspecified; G89.29 Other chronic pain; M48.062 Spinal stenosis, lumbar region with neurogenic claudication; M51.362 Other intervertebral disc degeneration, lumbar region with discogenic back pain and lower extremity pain
CPT/HCPCS: 99212; G0463

== ENCOUNTER 2024-10-01 14:50 | Outpatient (CLI) | payer MEDICARE, OTHER, SELFPAY ==
[2024-10-01] MEDS: ALBUTEROL 0.083% 2.5 MG/3 ML NEB IH (14:30)
[2024-10-01 15:30] VITALS: PULSE 71
== END 2024-10-01 23:59 | disposition home or self-care (01) ==
LOC: RT 14:51
PROVIDERS: PCP Internal Medicine Adolescent Medicine; Visit Provider Internal Medicine Adolescent Medicine
DX: R06.02 Shortness of breath (principal); C34.92 Malignant neoplasm of unspecified part of left bronchus or lung
CPT/HCPCS: 94060; 94640; 94726; 94729; J7613

== ENCOUNTER 2024-11-03 11:22 | Outpatient (POV) | payer MEDICARE, OTHER, SELFPAY ==
[2024-11-03 11:48] VITALS: BP 113/41; PULSE 69; RESP 18; O2SAT 97; BMI 26.6
--- NOTE | 2024-11-03 12:06 | EXP.PAIN.SOA ---
[facility] Disclaimer: The information contained in this section may have been updated after the patient was seen, as this information can be updated by other users. Medical History Pathologic fracture of vertebrae Emphysema/COPD History of transient ischemic attack (TIA) Diarrhea Lung cancer History of open sigmoidectomy Port-A-Cath in place History of chemotherapy UTI (urinary tract infection) Arthritis Hypertension HLD (hyperlipidemia) Cancer adrenal History of radiation therapy Surgical History History of arthroscopy of left shoulder History of arthroscopy of both knees Hx of tubal ligation Hx of hysterectomy, total History of colonoscopy Family History Other Cancer Diabetes Hyperlipidemia Hypertension Stroke Thyroid disorder Social History Smoking Status: Former smoker alcohol intake: never substance use type: denies use current occupational status: retired Travel in the last 8 weeks: None household members: family and none housing: house caffeine: Yes Have you lived/traveled outside [place] in past 30 days?: No Contact w/someone who lives/traveled outside [place] past 30 days?: No Exposure to someone with infectious disease in past 14 days?: No Do you have a fever (greater than 100.4 F or 38 C)?: No Have you tested positive for COVID-19: No Exposed to someone with COVID-19 in past 14 days?: No Do you have a sore throat?: No Do you have a cough?: No Do you have any weakness?: No Do you have any diarrhea?: No Are you experiencing any unusual bleeding?: No Do you have any muscle aches/pain?: No Do you have any abdominal pain?: No Are you experiencing loss of taste or smell?: No PM Subjective & Objective Subjective Subjective:: Patient is a pleasant 74-year-old female who presents today for follow-up of psychological evaluation. Today she rates her pain a 4 out of 10. She does state that she was in her closet a few days ago and was reaching over and felt like she lost her balance causing her to fall back. Patient does not believe that she caused any significant injury however does feel like she is just stoved up related to this. Patient does also state that she still has the chronic pain throughout her back that seems unchanged with previous medications that she was tried on. Patient was prescribed pregabalin, Percocet and compounded cream in the past. She states the pain is constant and does interfere with her ability perform activities of daily living such as cooking and cleaning. Patient does state that she would like to proceed forward with the trial as soon as possible. Her Horacio has been reviewed and is appropriate. Review of Systems: General: No recent weight changes, no fever, no sleep disturbances Respiratory: No cough, no shortness of air, no recurring pulmonary infections Cardiovascular/peripheral vascular: No chest pain, no palpitations, no edema, no shortness of breath Gastrointestinal: No new onset incontinence, normal bowel movements reported Genitourinary: No new onset incontinence Musculoskeletal: Chronic back pain Psychiatric: [Normal mood/affect] Neurological: [Denies weakness in extremities], [denies balance issues] Pain at rest (0-10 scale): 4 Objective Objective:: Physical Exam: General: Alert and oriented x3, no acute distress, pleasant and cooperative Lungs: Respirations even and unlabored, symmetrical chest expansion Eyes: PERRL Musculoskeletal: Flexion and extension of lumbar [spine] somewhat guarded secondary to pain, [antalgic gait noted] Neurological: Speech clear, no gross sensory deficit Has patient had previous pain injection?: No Conservative treatment options previously tried: Home exercise plan Length of treatment: Longer than 12 weeks Meds Home Medications and Allergies Home Medications ?Medication ?Instructions ?Recorded ?Confirmed ?Type aspirin 81 mg capsule 81 mg PO DAILY antiplatelet 04/22/23 11/03/24 History fexofenadine 180 mg tablet 180 mg PO DAILY Allergy Symptoms 04/22/23 11/03/24 History lansoprazole 30 mg capsule,delayed 30 mg PO DAILY Acid Reflux 04/22/23 11/03/24 History release magnesium 200 mg tablet 200 mg PO DAILY Supplement 04/22/23 11/03/24 History mxqymhfsrdsw-llkosyes-kgpydh tablet 1 tab PO DAILY Supplement 04/22/23 11/03/24 History oxycodone-acetaminophen 10 mg-325 1 tab PO TID PRN Pain 04/22/23 11/03/24 History mg tablet sennosides 8.6 mg capsule (senna) 8.6 mg PO BID PRN Constipation 04/22/23 11/03/24 History levothyroxine 50 mcg tablet 50 mcg PO DAILY Thyroid 04/23/23 11/03/24 History metoprolol succinate 100 mg 100 mg PO DAILY High Blood Pressure 04/23/23 11/03/24 History tablet,extended release 24 hr pregabalin 50 mg capsule 50 mg PO DAILY 08/18/23 11/03/24 History budesonide 3 mg 3 mg PO DIRECTED Breathing 02/03/24 11/03/24 History capsule,delayed,extended release Problems lancets (Accu-Chek Softclix #100 ea 02/03/24 11/03/24 History Lancets) linagliptin 5 mg tablet (Tradjenta) 5 mg PO DAILY 02/03/24 11/03/24 History New Prescriptions to Start Prescriptions: Allergies Allergy/AdvReac Type Severity Reaction Status Date / Time No Known Allergies Allergy Verified 02/03/24 13:13 Assessment and Plan *Assessment and plan (1) Degenerative disc disease, lumbar: Status: Acute Category: Medical Code(s): M51.369 - Other intervertebral disc degeneration, lumbar region without mention of lumbar back pain or lower extremity pain (2) Low back pain: Status: Acute Qualifiers: Chronicity: chronic Back pain laterality: bilateral Sciatica presence: without sciatica Qualified Code(s): M54.50 - Low back pain, unspecified; G89.29 - Other chronic pain Category: Medical Code(s): M54.50 - Low back pain, unspecified (3) Compression fracture: Status: Acute Category: Medical (4) Lumbar facet arthropathy: Status: Acute Category: Medical Code(s): M47.816 - Spondylosis without myelopathy or radiculopathy, lumbar region (5) Chronic back pain: Status: Acute Category: Medical Code(s): M54.9 - Dorsalgia, unspecified; G89.29 - Other chronic pain Plan I did review over with the patient regarding her psychological evaluation and she was deemed an appropriate candidate for this device. Patient does have chronic pain throughout her back as well as a longstanding history of compression fracture. Risk and benefits of the intrathecal trial were explained to the patient and she would like to proceed forward with this plan of care. Patient has tried oral medication, heat and ice, topicals, oral pain medications, physical therapy and continued at home stretching exercise for longer than 12 weeks. Patient will be scheduled for an intrathecal pain pump trial under fluoroscopy. Patient has been instructed to contact the clinic with any concerns before the next appointment. Dr. Ron has reviewed this note and agrees with this plan of care. This note was dictated using voice recognition software and make contain errors or omissions. All injections are used with Lidocaine, Bupivacaine and Depo Medrol. Occasionally urine drug screen is needed to verify patient's compliance with our office pain contract. This is ordered based off specific treatments related to chronic pain with the potential to abuse certain medications.
== END 2024-11-03 23:59 | disposition home or self-care (01) ==
LOC: SC.PAIN 11:25
PROVIDERS: PCP Internal Medicine Adolescent Medicine; Visit Provider Nurse Practitioner Family
DX: M51.369 Other intervertebral disc degeneration, lumbar region without mention of lumbar back pain or lower extremity pain (principal); M54.50 Low back pain, unspecified; G89.29 Other chronic pain; M47.816 Spondylosis without myelopathy or radiculopathy, lumbar region; M54.9 Dorsalgia, unspecified; Z73.89 Other problems related to life management difficulty
CPT/HCPCS: 99212; G0463

== ENCOUNTER 2024-12-31 13:49 | Day surgery (SDC) | payer MEDICARE, OTHER, SELFPAY ==
[2024-12-31 14:14] VITALS: BP 102/54; PULSE 64; RESP 16; TEMP 37; O2SAT 97; BMI 25.8
[2024-12-31 14:38] VITALS: BP 136/70; PULSE 67; RESP 18; O2SAT 95
[2024-12-31] MEDS: CEFAZOLIN SODIUM 1 GM in 0.9 % SODIUM CHLORIDE 50 ML IV (14:38)
[2024-12-31] MEDS: LIDOCAINE 1% 30ML PF VIAL 30 ML (14:39)
[2024-12-31] MEDS: FENTANYL 100MCG/2ML VIAL 100 MCG (14:40)
[2024-12-31 14:44] VITALS: BP 136/70; PULSE 67; RESP 18; O2SAT 95
--- NOTE | 2024-12-31 14:55 | P.PCN_ITS ---
Procedure Date: 12/31/24 Time: 14:55 Anesthesiologist:: Dex Ron MD Complications:: None Pre-procedure Diagnosis:: Degenerative disc disease of the lumbar spine with lumbar radiculopathy symptom Post-procedure Diagnosis:: Same Indications for Procedure:: This patient is a pleasant 74-year-old white female who we are treating for degenerative disease of lumbar spine with lumbar radiculopathy symptoms. She has failed all previous conservative treatments including injections, oral medic ations, physical therapy and she is not a candidate for any surgery. She has had a successful psychological evaluation. She presents for intrathecal pump trial today. Procedure Details:: Pain pump trial Informed consent was obtained and the risk and benefits of the procedure was explained to the patient. The patient was taken to the procedure room and placed prone on the procedure table. Patient was prepped and draped in sterile fashion. C-arm fluoroscopy was used to view the lumbar spine. The skin and subcutaneous tissues were anesthetized using lidocaine. I placed a 18-gauge spinal needle into the L4-5 interspace and advanced until clear CSF was obtained. After this intrathecal catheter was inserted and advanced very easily to the L1 vertebral body. The needle was withdrawn. We were able to freely withdraw clear CSF through the catheter. We then injected intrathecal opioid single shot bolus of 25 mcg followed by saline and followed by the previous CSF that was withdrawn. The needle and catheter were then removed and a Band-Aid was placed. Patient tolerated the procedure well with no complications. We reevaluated the patient after 30 minutes to 1 hour. This patient had 90 to 100% relief in pain symptoms. She was walking better and standing straighter. She was much more functional. Patient was discharged home neurologic intact with good relief of pain symptoms. Plan and Disposition:: This patient will follow-up in 1 week to assess efficacy of this trial. If successful we will plan on permanent placement with intrathecal morphine 1 mg/mL to start at 100 mcg/day with catheter tip at the T8 vertebral body
[2024-12-31 15:00] VITALS: BP 106/65; PULSE 63; RESP 16; O2SAT 96
[2024-12-31 15:45] VITALS: BP 105/58; PULSE 63; RESP 16; O2SAT 96
== END 2024-12-31 15:45 | disposition home or self-care (01) ==
PROVIDERS: PCP Internal Medicine Adolescent Medicine; Visit Provider Anesthesiology
DX: M51.16 Intervertebral disc disorders with radiculopathy, lumbar region (principal)
CPT/HCPCS: 62323; J0690; J3010

== ENCOUNTER 2025-01-06 13:30 | Outpatient (POV) | payer MEDICARE, OTHER, SELFPAY ==
--- OUTSIDE RECORDS SUMMARY | 2025-01-06 13:33 | XMS_ITS | Data Portability ---
Author Organization [place] [facility] Address [address] [place] [address] Assessment Encounter Date Assessment Date Assessment LastModified by Organization Details LastModified Time 05/02/2023 05/02/2023 This pt is known to us from our [place] office. She was scheduled for Kyphoplasty last week but was recovering from COVID. She has an acute T11 and L1 compression fracture with a worsening T12 compression fracture which had a previous kyphoplasty done 6 months ago. Pt has increasing low back pain and will be scheduled for T11 and L1 kyphoplasty on Friday. We reviewed the MRI and the risks and benefits of kyphoplasty. We have gone over pre op instructions. We will plan on kyphoplasty T11 and L1 with sedation on Friday. abux Not available 05/02/2023 21:07:19 05/07/2023 05/07/2023 This patient had kyphoplasty of the T11 and L1 vertebral bodies done today. She had acute compression fractures of both of these vertebral bodies. She has diagnosis of osteoporosis. Upon discharge she had good relief of pain symptoms and she was neurologically intact. We will follow-up with her in our [place] office on May 16. She may be a good candidate for intrathecal therapy long-term to help with her back pain since she is now had 3 compression fractures in the last 6 months. abux Not available 05/07/2023 18:13:33 Plan of Treatment Reminders Order Date Submit Date Provider Last Modified By Organization Details Last Modified Time Details Appointments None record ed. Lab None record ed. Referral None record ed. Procedures None record ed. Surgeries None record ed. Imaging None record ed. Medication Orders None record ed. Patient TargetsNo targets recorded. Patient Instructions Encounter Date Encounter Id Patient Instructions Last Modified By Organization Details Last Modified Time 05/02/2023 [id number] back pain: care instructions abux Not available 05/02/2023 21:08:16 learning about relief for back pain abux Not available 05/02/2023 21:08:16 Reason for Referral None Reported. Procedures Surgical History Date Name Laterality Status Provider Name and Address Organization Details Recorded Time 05/07/20 Kyphoplasty completed Dex Ron MD [address] [address], [place], [address], [place] [facility] 05/22/2023 12:45:10 Knee arthroscopy/surg aguila completed EDMUND MEDINA [place] [facility] 05/01/2023 16:00:49 arthroscopy of shoulder completed EDMUND MEDINA [place] [facility] 05/01/2023 16:01:19 Hysterectomy completed EDMUND MEDINA [place] [facility] 05/01/2023 16:01:29 ligation of fallopian tube completed EDMUND MEDINA [place] [facility] 05/01/2023 16:01:39 ligation of fallopian tube completed Jennifer Jules [place] [facility] 05/02/2023 14:11:27 Imaging Results None recorded. Procedure Notes None recorded. Medical Equipment None Reported. Allergies No known drug allergies Medications Name Sig Start Date Stop Date Status Note LastModified by Organization Details LastModified Time pravastatin 40 mg tablet active Not Available Not Available Not Available tizanidine 4 mg tablet TAKE 1 TABLET BY MOUTH AT BEDTIME active Not Available Not Available No t Available phenazopyri dine 200 mg tablet TAKE 1 TABLET BY MOUTH THREE TIMES DAILY 05/01 completed Not Available Not Available Not Available prednisone 20 mg tablet TAKE 1 TABLET BY MOUTH TWICE DAILY 05/01 completed Not Available Not Available Not Available metoprolol succinate ER 100 mg tablet,exte nded release 24 hr active Not Available Not Available Not Available clobetasol 0.05 % topical cream APPLY CREAM TOPICALLY TO AFFECTED AREA TWICE DAILY 05/01 completed Not Available Not Available Not Available diphenoxyla te-atropine 2.5 mg-0.025 mg tablet TAKE 2 TABLETS BY MOUTH FOLLOWING PASCUAL LOOSE STOOL, THEN 1 TABLET EVERY 4 HOURS NEEDED FOR DIARRHEA. DO NOT TAKE MORE THAN 8 TABLETS IN 24 HOURS 05/01 completed Not Available Not Available Not Available metronidazo le 500 mg tablet TAKE 1 TABLET BY MOUTH TWICE DAILY 05/01 completed Not Available Not Available Not Available lidocaine HCl 2 % mucosal jelly APPLY TO AFFECTED AREA NEEDED 05/01 completed Not Available Not Available Not Available prochlorper azine maleate 10 mg tablet TAKE 1 TABLET BY MOUTH EVERY 6 HOURS NEEDED FOR NAUSEA 05/01 completed Not Available Not Available Not Available ciprofloxac in 500 mg tablet TAKE 1 TABLET BY MOUTH EVERY 12 HOURS FOR 10 DAYS 05/01 completed Not Available Not Available Not Available sulfamethox azole 800 mg-trimetho prim 160 mg tablet TAKE 1 TABLET BY MOUTH TWICE DAILY FOR 7 DAYS 05/01 completed Not Available Not Available Not Available aspirin 81 mg tablet,sadia yed release Take 1 tablet every day by oral route. active Not Available Not Available No t Available amitriptyli ne 50 mg tablet TAKE 1 TABLET BY MOUTH IN THE MORNING AND 2 AT BEDTIME 05/01 completed Not Available Not Available Not Available ofloxacin 0.3 % ear drops INSTILL 5 DROPS INTO AFFECTED EAR TWICE DAILY FOR 7 DAYS 05/01 completed Not Available Not Available Not Available methenamine hippurate 1 gram tablet TAKE 1 TABLET BY MOUTH TWICE DAILY active Not Available Not Available No t Available methocarbam ol 750 mg tablet TAKE 1 TABLET BY MOUTH TWICE DAILY active Not Available Not Available No t Available oxycodone-a cetaminophe n 10 mg-325 mg tablet TAKE 1 TABLET BY MOUTH THREE TIMES DAILY FOR SEVERE PAIN active Not Available Not Available No t Available phenazopyri dine 100 mg tablet TAKE 2 TABLETS BY MOUTH THREE TIMES DAILY FOR 10 DAYS 05/01 completed Not Available Not Available Not Available baclofen 10 mg tablet TAKE 1 TABLET BY MOUTH TWICE DAILY active Not Available Not Available No t Available benzonatate 100 mg capsule TAKE 1 CAPSULE BY MOUTH THREE TIMES DAILY NEEDED FOR COUGH 05/01 completed Not Available Not Available Not Available doxycycline monohydrate 100 mg capsule TAKE 1 CAPSULE BY MOUTH TWICE DAILY FOR 10 DAYS 05/01 completed Not Available Not Available Not Available levothyroxi ne 50 mcg tablet active Not Available Not Available Not Available dexamethaso ne 4 mg tablet TAKE 1 TABLET BY MOUTH TWICE DAILY FOR 7 DAYS 05/01 completed Not Available Not Available Not Available lansoprazol e 30 mg capsule,del ayed release 05/01 completed Not Available Not Available Not Available fluorometho lone 0.1 % eye drops,suspe nsion INSTILL 1 DROP INTO AFFECTED EYE 4 TIMES DAILY 05/01 completed Not Available Not Available Not Available gabapentin 300 mg capsule TAKE 1 CAPSULE BY MOUTH THREE TIMES DAILY 05/01 completed Not Available Not Available Not Available gabapentin 100 mg capsule TAKE 1 CAPSULE BY MOUTH THREE TIMES DAILY active Not Available Not Available No t Available ergocalcife rol (vitamin D2) 1,250 mcg (50,000 unit) capsule active Not Available Not Available Not Available budesonide DR - ER 3 mg capsule,del ayed,extend ed release TAKE 3 BY MOUTH ONCE DAILY IN THE MORNING 05/01 completed Not Available Not Available Not Available cefuroxime axetil 500 mg tablet TAKE 1 TABLET BY MOUTH EVERY 12 HOURS active Not Available Not Available No t Available oxycodone-a cetaminophe n 7.5 mg-325 mg tablet TAKE 1 TABLET BY MOUTH THREE TIMES DAILY NEEDED 05/01 completed Not Available Not Available Not Available estradiol 0.01% (0.1 mg/gram) vaginal cream APPLY A PEA SIZED AMOUNT TO THE OPENING OF THE VAGINA AT BEDTIME 05/01 completed Not Available Not Available Not Available cefdinir 300 mg capsule TAKE 1 CAPSULE BY MOUTH TWICE DAILY 05/01 completed Not Available Not Available Not Available fluticasone propionate 50 mcg/actuati on nasal spray,suspe nsion USE 1 SPRAY(S) IN EACH NOSTRIL ONCE DAILY active Not Available Not Available No t Available sertraline 50 mg tablet active Not Available Not Available Not Available amoxicillin 500 mg-potassiu m clavulanate 125 mg tablet TAKE 1 TABLET BY MOUTH EVERY 8 HOURS FOR 7 DAYS 05/01 completed Not Available Not Available Not Available oxycodone 5 mg tablet TAKE 1 TABLET BY MOUTH TWICE DAILY NEEDED FOR SEVERE PAIN 05/07 completed Not Available Not Available Not Available nitrofurant oin monohydrate /macrocryst als 100 mg capsule TAKE 1 CAPSULE BY MOUTH TWICE DAILY FOR 7 DAYS 05/01 completed Not Available Not Available Not Available Cipro 05/07 completed Not Available Not Available Not Available lansoprazol e active Not Available Not Available Not Available budesonide active Not Available Not Av ailable Not Available ropivacaine (PF) 5 mg/mL (0.5 %) injection solution 05/01 completed Not Available Not Available Not Available Glydo 2 % mucosal jelly in applicator APPLY UP TO 6ML (ONE PREFILLED SYRINGE) TOPICALLY UP TO 4 TIMES A DAY DISCARD ANY REMAINING QTY AFTER USING PREFILLED SYRINGE 05/01 completed Not Available Not Available Not Available naloxone 4 mg/actuatio n nasal spray ADMINISTE R A SINGLE SPRAY INTRANASA LLY INTO ONE NOSTRIL. CALL 911. MAY REPEAT X1. active Not Available Not Available No t Available Paxlovid 300 mg (150 mg x 2)-100 mg tablets in a dose pack TAKE 3 TABLETS TOGETHER (TWO 150 MG NIRMATREL VIR TABLETS AND ONE 100 MG RITONAVIR TABLET) BY MOUTH TWICE DAILY FOR 5 DAYS. 05/07 completed Not Available Not Available Not Available Vitals Date Recorded Body height Body mass index (BMI) Body weight Oxygen saturation Oxygen saturation in Arterial blood by Pulse oximetry Pain severity - 0-10 verbal numeric rating [Score] - Reported Respiratory rate Heart rate Heart rate Systolic blood pressure Diastolic blood pressure Provider Name and Address Organization Details Last Updated DateTime 3 172.72 cm 25.8 kg/m2 46755.7 g 95 % 95 % 8 18 /min 75 /min 75 /min 142 mm[Hg] 92 mm[Hg] Jennifer Jules [place] [facility] 3 14:06:59 Date Recorded Body height Body mass index (BMI) Body weight Oxygen saturation Oxygen saturation in Arterial blood by Pulse oximetry Heart rate Pain severity - 0-10 verbal numeric rating [Score] - Reported Systolic blood pressure Diastolic blood pressure Provider Name and Address Organization Details Last Updated DateTime 3 172.72 cm 25.8 kg/m2 42189.7 g 96 % 96 % 74 /min 8 148 mm[Hg] 82 mm[Hg] EDMUND MEDINA [place] [facility] 3 13:25:40 Social History Question Answer Notes LastModified by Organizat ion Details LastModified Time Tobacco Smoking Status Former Smoker EDMUND CAROL null, [place] [facility] 05/01/2023 16:02:20 Do You Have An Advance Directive? Yes [email or web address] Information n ot available 05/02/2023 In The 14 Days Before Symptom Onset, Have You Had Close Contact With A Laboratory-confirm ed COVID-19 While That Case Was Ill? No [email or web address] Information n ot available 05/01/2023 In The 14 Days Before Symptom Onset, Have You Had Close Contact With A Person Who Is Under Investigation For COVID-19 While That Person Was Ill? No [email or web address] Information not available 05/01/2023 Have You Been To An Area Known To Be High Risk For COVID-19? 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 No Information not available 05/01/2023 Do you or have you ever used any other forms of tobacco or nicotine? No Information not available 05/01/2023 What is your level of alcohol consumption? None [email or web address] Information not available 05/01/2023 Are you currently employed? No [email or web address] Information not available 05/02/2023 Mental Status None recorded. Family History Nothing Reported. Medical History Condition Response Coronary Artery Disease N Gout N Head Trauma/Injury N Depression N COPD Y Anxiety Disorder N Arthritis Y Acid Reflux (GERD) N Cancer Y Stroke N Headaches N Fibromyalgia N Kidney Disease N Ulcers N Bleeding Disorder N Tuberculosis N AIDS/HIV N Asthma N Substance Abuse N Hepatitis N Hernia N Back Injury N High Cholesterol N Liver Disease N Thyroid Problems N Anemia N Heart Attack ([place]) N Diabetes N Heart Disease N Hypertension Y Osteoporosis N Gynecological HistoryNo gynecological history recorded. Obstetrics History GPAL:G 0 P 0 0 0 0 Past Encounters Encounter ID Performer Location Encounter Start Date Encounter Closed Date Diagnosis/Indication Diagnosis SNOMED-CT Code Diagnosis ICD10 Code Diagnosis Note [id number] Dex Ron MD [address] [place] [address] [place] [id number] 05/02/2023 13:42:42 05/02/2023 15:27:54 Compression fracture of lumbar spine 647787577 M48.56XA Compressio n fracture of thoracic spine 000946487 S22.000A Degenerati on of lumbar intervertebral disc 68406411 M51.36 [id number] Dex Ron MD [place] [facility] [address] [place] [address] 05/07/2023 13:06:55 05/07/2023 17:55:03 Compression fracture of lumbar spine 717890154 M48.56XA Compressio n fracture of thoracic spine 931502607 S22.000A Osteoporot ic fracture of vertebra 8215510358 3403994 M80.08XA Health Concerns Section Related Observation LastModified by Organization Detai ls LastModified Time None Recorded Concern Status LastModified by Organization Details LastModified Time None Recorded Advance Directives Directive Y: Payers Encounter Date Sequence Insurance Name Policy Number Policy Ring Covered Member ID Ring Member ID Guarantor Name 05/02/2023 2 [employer] - [employer] (MEDICARE SUPPLEMENT) Mariaelena Meza [id number] Mariaelena Meza 05/02/2023 1 [place] Mariaelena Meza [id number] Mariaelena Meza 05/07/2023 2 [employer] - [employer] (MEDICARE SUPPLEMENT) Mariaelena Meza [id number] Mariaelena Meza 05/07/2023 1 [place] Mariaelena Meza [id number] Mariaelena Meza Notes Date Note Type Note Provider Name and Address Organization Details Recorded Time 05/02/2023 text/html Patient is pauline mcbride in today [facility] for a Check up after having covidPain score is 8/10 with no changes to pain. Pt feels fully recovered from covid Dex Ron MD [address], [address], [place] [facility] 05/02/2023 21:09:07 05/07/2023 text/html PT is in clinic today for a Kyphoplasty Dex Ron MD [address], [address], [place] [facility] 05/22/2023 12:45:15 OBGyn Episode No OBEpisode recorded.
--- NOTE | 2025-01-06 14:33 | EXP.PAIN.SOA ---
[facility] Disclaimer: The information contained in this section may have been updated after the patient was seen, as this information can be updated by other users. Medical History Pathologic fracture of vertebrae Emphysema/COPD History of transient ischemic attack (TIA) Diarrhea Lung cancer History of open sigmoidectomy Port-A-Cath in place History of chemotherapy UTI (urinary tract infection) Arthritis Hypertension HLD (hyperlipidemia) Cancer adrenal History of radiation therapy Surgical History History of arthroscopy of left shoulder History of arthroscopy of both knees Hx of tubal ligation Hx of hysterectomy, total History of colonoscopy Family History Other Cancer Diabetes Hyperlipidemia Hypertension Stroke Thyroid disorder Social History Smoking Status: Former smoker alcohol intake: never substance use type: denies use current occupational status: retired Travel in the last 8 weeks?: None household members: family and none housing: house caffeine: Yes Have you lived/traveled outside [place] in past 30 days?: No Contact w/someone who lives/traveled outside US past 30 days?: No Exposure to someone with infectious disease in past 14 days?: No Do you have a fever (greater than 100.4 F or 38 C)?: No Have you tested positive for COVID-19?: No Exposed to someone with COVID-19 in past 14 days?: No Do you have a sore throat?: No Do you have a cough?: No Do you have any weakness?: No Do you have any diarrhea?: No Are you experiencing any unusual bleeding?: No Do you have any muscle aches/pain?: No Do you have any abdominal pain?: No Are you experiencing loss of taste or smell?: No PM Subjective & Objective Subjective Subjective:: Patient is a pleasant 74-year-old female who presents today for follow-up of her intrathecal pump trial on 12/31/2024. Today she rates her pain a 0 out of 10 however states that a lot of her pain is more related when she gets up and starts walking. Patient states that she has not had any new falls or injuries. Patient does state that the injection did seem to help some of her walking and moving however she felt like it more primarily affected the overall back and less on the radiating symptoms. Patient does state that it did seem like it helps the remainder of Friday and Friday however she had very severe pain on Friday. Patient does believe part of it is related to increased activity due to being Mother's Day and doing a lot around her house. Patient does state that when the injection was working that she felt like she was able to still do more activities such as replanning some of her blackberries. Patient does also make mention that she had been previously prescribed Keytruda and that caused some additional issues and pain in her groin area and that the pump seem like that that helped with that. Patient does states she is still unsure if she wants to proceed forward with the implant due to still having a lot of leg symptoms. Her Horacio has been reviewed and is appropriate. Review of Systems: General: No recent weight changes, no fever, no sleep disturbances Respiratory: No cough, no shortness of air, no recurring pulmonary infections Cardiovascular/peripheral vascular: No chest pain, no palpitations, no edema, no shortness of breath Gastrointestinal: No new onset incontinence, normal bowel movements reported Genitourinary: No new onset incontinence Musculoskeletal: Low back pain, leg pain Psychiatric: [Normal mood/affect] Neurological: [Denies weakness in extremities], [denies balance issues] Pain at rest (0-10 scale): 0 Objective Objective:: Physical Exam: General: Alert and oriented x3, no acute distress, pleasant and cooperative Lungs: Respirations even and unlabored, symmetrical chest expansion Eyes: PERRL Musculoskeletal: Flexion and extension of lumbar [spine] somewhat guarded secondary to pain, [antalgic gait noted] Neurological: Speech clear, no gross sensory deficit Has patient had previous pain injection?: No Conservative treatment options previously tried: Home exercise plan Length of treatment: Longer than 12-week Meds Home Medications and Allergies Home Medications ?Medication ?Instructions ?Recorded ?Confirmed ?Type aspirin 81 mg capsule 81 mg PO DAILY antiplatelet 04/22/23 12/31/24 History fexofenadine 180 mg tablet 180 mg PO DAILY Allergy Symptoms 04/22/23 12/31/24 History lansoprazole 30 mg capsule,delayed 30 mg PO DAILY Acid Reflux 04/22/23 12/31/24 History release magnesium 200 mg tablet 200 mg PO DAILY Supplement 04/22/23 12/31/24 History tlbzalxvyrjb-esmdqpgh-phcodk tablet 1 tab PO DAILY Supplement 04/22/23 12/31/24 History oxycodone-acetaminophen 10 mg-325 1 tab PO TID PRN Pain 04/22/23 12/31/24 History mg tablet sennosides 8.6 mg capsule (senna) 8.6 mg PO BID PRN Constipation 04/22/23 12/31/24 History levothyroxine 50 mcg tablet 50 mcg PO DAILY Thyroid 04/23/23 12/31/24 History metoprolol succinate 100 mg 100 mg PO DAILY High Blood Pressure 04/23/23 12/31/24 History tablet,extended release 24 hr pregabalin 50 mg capsule 50 mg PO DAILY 08/18/23 12/31/24 History budesonide 3 mg 3 mg PO DIRECTED Breathing 02/03/24 12/31/24 History capsule,delayed,extended release Problems lancets (Accu-Chek Softclix #100 ea 02/03/24 12/31/24 History Lancets) linagliptin 5 mg tablet (Tradjenta) 5 mg PO DAILY 02/03/24 12/31/24 History New Prescriptions to Start Prescriptions: Allergies Allergy/AdvReac Type Severity Reaction Status Date / Time No Known Allergies Allergy Verified 02/03/24 13:13 Assessment and Plan *Assessment and plan (1) Chronic back pain: Status: Acute Category: Medical Code(s): M54.9 - Dorsalgia, unspecified; G89.29 - Other chronic pain (2) Degenerative disc disease, lumbar: Status: Acute Category: Medical Code(s): M51.369 - Other intervertebral disc degeneration, lumbar region without mention of lumbar back pain or lower extremity pain (3) Spinal stenosis of lumbar region: Status: Acute Qualifiers: Neurogenic claudication status: with neurogenic claudication Qualified Code(s): M48.062 - Spinal stenosis, lumbar region with neurogenic claudication Category: Medical Code(s): M48.061 - Spinal stenosis, lumbar region without neurogenic claudication (4) Lumbar radiculopathy: Status: Acute Category: Medical Code(s): M54.16 - Radiculopathy, lumbar region Plan We did review over multiple options and due to the fact that she felt like it was beneficial but still had a lot more of the radicular symptoms I have discussed with the patient that it might be worthwhile for us to try the spinal cord stimulator. Patient has had a psychological evaluation and was deemed an appropriate candidate for implantable device. Patient has tried and failed oral medication, heat and ice, topicals, physical therapy and is not a surgical candidate. Risk and benefits and educational handouts were reviewed at today's visit. She would like to proceed forward with the trial. We will submit to insurance for the spinal cord stimulator trial under local anesthetic. This will be used with fluoroscopy. Patient will be contacted once we have approval for this procedure. Patient acknowledges understanding agrees with plan of care. Patient has been instructed to contact the clinic with any concerns before the next appointment. Dr. Ron has reviewed this note and agrees with this plan of care. This note was dictated using voice recognition software and make contain errors or omissions. All injections are used with Lidocaine, Bupivacaine and dexamethasone. Occasionally urine drug screen is needed to verify patient's compliance with our office pain contract. This is ordered based off specific treatments related to chronic pain with the potential to abuse certain medications.
[2025-01-06 15:49] VITALS: BP 110/64; PULSE 71; RESP 16; O2SAT 94; BMI 25.8
== END 2025-01-06 23:59 | disposition home or self-care (01) ==
LOC: SC.PAIN 13:31
PROVIDERS: PCP Internal Medicine Adolescent Medicine; Visit Provider Nurse Practitioner Family
DX: M54.9 Dorsalgia, unspecified (principal); G89.29 Other chronic pain; M48.062 Spinal stenosis, lumbar region with neurogenic claudication; M51.16 Intervertebral disc disorders with radiculopathy, lumbar region; Z87.891 Personal history of nicotine dependence
CPT/HCPCS: 99212; G0463

== ENCOUNTER 2025-06-08 15:09 | Outpatient (CLI) | payer MEDICARE, OTHER, SELFPAY ==
--- OUTSIDE RECORDS SUMMARY | 2025-06-08 15:12 | XMS_ITS | Clinical Summary ---
Author Organization [facility] Address [address] [place] [address] Care Team Providers Care Customer Support Engineer Name Role Phone Mayur Barnhart MD Primary Care Provider [phone] Allergies No known active allergies Medications lansoprazole (PREVACID) 30 MG capsule Take 1 capsule by mouth Daily. Active Budesonide (ENTOCORT EC) 3 MG 24 hr capsule Take 1 capsule by mouth Daily. Active pregabalin (LYRICA) 50 MG capsule Take 1 capsule by mouth Daily. 3 Active metoprolol succinate XL (TOPROL-XL) 100 MG 24 hr tablet Take 1 tablet by mouth Daily. Active levothyroxine (SYNTHROID, LEVOTHROID) 50 MCG tablet Take 1 tablet by mouth Every Morning. Active aspirin 81 MG EC tablet Take 1 tablet by mouth Daily. Active oxyCODONE-aceta minophen (PERCOCET) 10-325 MG per tablet Take 1 tablet by mouth Every 8 (Eight) Hours As Needed for Severe Pain. pt states medication is prescribed 3x daily as needed for back pain Active atorvastatin (LIPITOR) 80 MG tablet Take 1 tablet by mouth Every Night. 30 tablet 3 Active amLODIPine (NORVASC) 5 MG tablet Take 1 tablet by mouth Daily. 30 tablet 3 Active polyethylene glycol (MIRALAX) 17 g packet Take 17 g by mouth Daily As Needed (Use if senna-docusate is ineffective). 3 Active clopidogrel (PLAVIX) 75 MG tablet Take 1 tablet by mouth Daily. 30 tablet 3 Active Active Problems Problem Noted Date Diagnosed Date CVA (cerebral vascular accident) 08/19/2023 HTN (hypertension) 08/19/2023 Hypothyroidism (acquired) 08/19/2023 Benign meningioma 08/19/2023 Metastatic lung cancer (metastasis from lung to other site) 08/19/2023 H/O malignant neoplasm of brain 08/19/2023 Overview (08/19/2023): Followed by [facility] Neuro Surg, did not require intervention to cerebellar metastasis due to tumor remission prior to planned cyberknife. Follows for q6 month surveillance MRI's Former heavy cigarette smoker (20-39 per day) Stroke 08/19/2023 Social History Tobacco Use Types Packs/Day Years Used Date Smoking Tobacco: Former Cigarettes 2 40 Smokeless Tobacco: Never Tobacco Cessation:Counseling Given: Not Answered Alcohol Use Standard Drinks/Week Comments Not Currently 0 (1 standard drink = 0.6 oz pur e alcohol) AUDIT-C Answer Date Recorded Q1: How often do you have a drink containing alcohol? Never 08/19/2023 Q2: How many drinks containi ng alcohol do you have on a typical day when you are drinking? Patient does not drink Q3: How often do you have si x or more drinks on one occasion? Never 08/19/2023 Abuse Screen Answer Date Recorded Feels Unsafe at Home or Work/School no 08/19/2023 Feels Threatened by Someone no 07/26 Does Anyone Try to Keep You From Having Contact with Others or Doing Things Outside Your Home? no 08/19/2023 Physical Signs of Abuse Present no 08/19/2023 Housing Stability Answer Date Recorded Current Living Arrangements home 07/26 Potentially Unsafe Housing Conditions Not on gaye e 08/19/2023 Family and Community Support Answer Regis e Recorded Help with Day-to-Day Activities Not on file 06/02/2023 Lonely or Isolated Not on file 06/02/2023 Employment Answer Date Recorded Do you want help finding or keeping work or a zohaib b? Not on file 06/02/2023 Disabilities Answer Date Recorded Difficulty Concentrating, Remembering or Making Decisions yes 08/19/2023 Difficulty Managing Errands Independently yes 08/19/2023 Education Answer Date Recorded Help with school or training? Not on file Preferred Language Samoan 08/19/2023 Comments Unknown Sex and Gender Information Value Date Recorded Sex Assigned at Not on file Legal Sex Female 10:58 AM EDT Gender Identity Not on file Sexual Orientation Not on file Last Filed Vital Signs Vital Sign Reading Time Taken Comments Blood Pressure 127/53 2023 2:52 PM EST Pulse 77 2023 2:52 PM EST Temperature 36.4 C (97.5 F) 2023 2:52 PM EST Respiratory Rate 18 2023 2:52 PM EST Oxygen Saturation 96% 2023 2:52 PM EST Inhaled Oxygen Concentration - - Weight 78.5 kg (173 lb) 08/20/2023 9:51 AM EST Height 170.2 cm (5' 7 ) 08/20/2023 9:51 AM EST Body Mass Index 27.1 08/20/2023 9:51 AM EST Plan of Treatment Health Maintenance Due Date Last Done Comments DXA SCAN 1950 TDAP/TD VACCINES (1 - Tdap) 1971 MAMMOGRAM 1992 COLOGUARD 1997 COLON CANCER SCREENING 5 YEA R SIGMOIDOSCOPY 1997 COLONOSCOPY 1997 [address] CANCER SCREENING 1997 CT COLONOGRAPHY 1997 FECAL OCCULT BLOOD TEST 1997 FIT Testing (1 year) 1997 ZOSTER VACCINE (2 of 3) 07/07/2017 05/12/2017 ANNUAL WELLNESS VISIT 10/13/2023 HEPATITIS C SCREENING 10/13/2023 INFLUENZA VACCINE 03/25/2025 07/30/2023, , 04/19/2019, Additional history exists COVID-19 Vaccine (2024-2 6 season) 2025 06/29/2021, 12/13/2020, 11/08/2020 Pneumococcal Vaccine 50+ Completed 07/30/2023 HEMOGLOBIN A1C Discontinued 08/19/2023 LUNG CANCER SCREENING Discontinued 03/14/2025 , 10/11/2024, 05/10/2024, Additional history exists Procedures Procedure Name Priority Date/Time Associated Diagnosis Comments HEMOGLOBIN A1C Urgent 08/19/2023 6:50 AM EST from Last 3 Months or Most Recently Relevant to Health Maintenance Results * (ABNORMAL) Hemoglobin A1c (08/19/2023 6:50 AM EST) Hemoglobin A1C 7.00(H) 4.80 - 5.60 % 08/19/2023 7:21 AM EST [facility] Blood Venipuncture / Unknown 08/19/2023 6:50 AM EST 08/19/2023 7:03 AM EST Narrative [facility] - 08/19/2023 7:21 AM EST Hemoglobin A1C Ranges: Increased Risk for Diabetes 5.7% to 6.4% Diabetes >= 6.5% Diabetic Goal < 7.0% Conner Alvarez APRN LAB BLOOD ORDERABLES Final Re sult [facility]
[address] [place] [address], from Last 3 Months or Most Recently Relevant to Health Maintenance Insurance MEDICARE A & B [employer] Advance Directives Documents on File Type Date Recorded Patient Network Technician Expl anation LIVING WILL - SCAN 08/27/2023 7:52 AM [facility], 01/30/2022 POWER OF IMPORT COORDINATOR - SCAN 08/27/2023 7:47 AM POWER OF IMPORT COORDINATOR, [facility], 01/30/2022 PATIENT ADVANCE DIRECTIVES - SCAN 08/27/2023 7:46 AM CODE STATUS, [facility], 08/19/2023 * No CPR (Do Not Attempt to Resuscitate) (Latest Code Status on File) Date Activated Date Inactivated Comments 08/19/2023 5:48 AM 2023 8:09 PM Question Answer Comments Code Status (Patient has no pulse and is not breathing): No CPR (Do Not Attempt to Resuscitate) Medical Interventions (Patie nt has pulse or is breathing): Limited Support Medical Intervention Limits: NO intubation (DNI) Care Teams Customer Support Engineer Relationship Specialty Start Date End Date Mayur Barnhart MD [address] [place] [address] [address] PCP - General Adolescent Medicine 08/19/23
--- OUTSIDE RECORDS SUMMARY | 2025-06-08 15:12 | XMS_ITS | Encounter Summary ---
Author Organization [facility] Address [address] [place] [address] Care Team Providers Care Fuel Pilot Engineer Name Role Phone Mayur Barnhart MD Primary Care Provider [phone] Encounter Details Date Type Department Care Team (Late st Contact Info) Description 06/11/2012 Conversion Encounter [facility] HISTORICAL CONV [address] [place] [address] Interface, See Report Social History Tobacco Use Types Packs/Day Years Used Date Smoking Tobacco: Never Assessed Comments Unknown Sex and Gender Information Value Date Recorded Sex Assigned at Not on file Legal Sex Female 10:58 AM EDT Gender Identity Not on file Sexual Orientation Not on file documented as of this encounter H&P Notes * Interface, See Report - 06/11/2012 3:41 PM EDT Donavon Tavarez M.D. ' Tyson Mazariegos M.D. ' Jeanine Palacios, SHOE SHINER [facility] [facility], [address] [place] [address] [employer] [id number] NOTES MARIAELENA MEZA - [id number] B.D. 1950 06/16/2012 REQUESTING HEALTH CARE PROVIDER: Jenn Harris in [place], [place] REASON FOR EVALUATION: Pelvic pressure, bowel problems, vulvar pruritus. HISTORY OF PRESENT ILLNESS: This patient is a very pleasant 61-year-old 4, para 3 with one miscarriage and three vaginal deliveries. 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 Today she reports a two year history of pruritus at the right labia /mons and left perianal area. She states she has tried to check for a lesion but has not seen anything. She also complains of pelvic pressure today and feels like she has bladder infection, heaviness but no dysuria. She complains of right-sided pelvic pain. She denies any urinary incontinence. She complains of problems with fecal urgency and incontinence. She takes fiber two to three times a day in order to make sure she has good bulk in her feces. She has had this problem for five or six years, but in the past it only happened once or twice a year. It now happens so frequently she is concerned about leaving the house. She has to get up very early in the morning and make sure her bowels are completely empty before she goes to work. She has not had a colonoscopy since 2005. At that time, she had six polyps identified. She has questions about further management. SCREENING: Colonoscopy 2005. Breast exam April 2012. Mammogram 05/12/2012, BI-RAD 2. TSH and cholesterol were checked 07/21/2011 and are managed by her primary care provider. Pap smear was in April 2012. The patient has not recently undergone CT scan. She did undergo a barium enema 06/03/2008 at which time sigmoid diverticulosis and muscular hypertrophy were identified. No fistula was identified and there was no mass or obstruction. Recent Hemoccult was negative per patient. PAST MEDICAL HISTORY: 1. Arthritis. 2. Diverticulitis. 3. High blood pressure. 4. Possible stroke. 5. Abdominal pain/problems with defecation as noted above. PAST SURGICAL HISTORY: 1. DandC 1980. 2. Tubal ligation in 1981. 3. VON/BSO 1996. 4. Breast biopsy greater than 20 years ago. 5. Bilateral knee arthroscopy. 6. Left shoulder arthroscopy 1989. ALLERGIES: No known drug allergies. MEDICATIONS: 1. Lansoprazole DR 30 mg one p.o. daily. 2. Enteric coated aspirin 325 mg p.o. daily. 3. Metoprolol ER 50 mg p.o. daily. 4. Fiber two to three times per day p.r.n. FAMILY HISTORY: Father had childhood diabetes. Father had cardiac disease. Mother had dementia. SOCIAL HISTORY: The patient is and is a nurse. She smoked a pack of cigarettes a day for about 40 years. She occasionally drinks alcohol. She denies drug abuse. REVIEW OF SYSTEMS: GENERAL: Hot flashes, pain. MOUTH AND THROAT: Dry mouth. MUSCULOSKELETAL: Bone and joint pain. GI: See above. Diarrhea and heartburn. PSYCHIATRIC: Insomnia. GENITOURINARY: Nocturia x1 at night, dyspareunia. ASSISTIVE DEVICES: Dentures. The remainder of review of systems was negative. PHYSICAL EXAMINATION: VITAL SIGNS: Blood pressure 122/84. Weight 193 pounds. Height 60 inches. BMI 29.3. GENERAL: The patient is a pleasant woman appearing her stated age in no acute distress. HEENT: Sclerae anicteric, moist mucous membranes. NECK: Supple without thyromegaly. LYMPH NODE SURVEY: Negative for adenopathy in the neck and groin areas bilaterally. HEART: Regular rate and rhythm. LUNGS: Clear to auscultation bilaterally, normal effort. BACK: No CVA tenderness. ABDOMEN: Soft, nontender, and nondistended. EXTREMITIES: No cyanosis, clubbing, or edema. PELVIC EXAMINATION: The external genitalia were remarkable for focal redness consistent with excoriation/irritation at the right labia majora at the junction of the mons and in the left perianal area. On speculum examination (bivalve and single valve) a grade 2 cystocele was appreciated. There was no change with Valsalva. No significant rectocele was appreciated. There is no change with Valsalva. The distance between the anus and the vagina was somewhat shortened and there was evidence of a prior episiotomy repair. On bimanual examination there was mild to moderate tenderness at the right apex. There was a small amount of nodularity suggestive of diverticular disease in that area. Exam was well tolerated. Rectovaginal exam was performed, and again, no mass was appreciated. However, the patient demonstrated significant decreased anal sphincter tone. She was unable to perform any significant tightening of the anus. ASSESSMENT AND PLAN: The patient is a very pleasant 61-year-old woman with multiple complaints today: 1. Vulvar and perianal pruritus: This looks like excoriation and irritation in these areas. A moisture barrier such as Aquaphor was recommended. I did not see a lesion to biopsy today. 2. Regarding pain and cystocele: I do not think that the patient is a good candidate for pelvic organ prolapse surgery. Specifically, I think mesh in someone with a history of diverticulitis and abscess mesh would be a mistake. The patient agreed with this. She was not interested in having any mesh procedure. She was notified that in the future if she did not desire vaginal preservation, she may be a candidate for a colpocleisis. She is not a good candidate for a pessary due to the decreased perineum and enlarged vaginal introitus. All of this was discussed. 3. Regarding worsening fecal incontinence and decreased anal sphincter tone: I recommended referral to a colorectal surgeon. She has tried management with bulking agents which has helped some, but has not controlled her symptoms. I told her I was not sure if there was much they would be able to offer her, but this was out of my realm of expertise. She voiced understanding. She is to going to call when and if she desires follow-up. All questions were answered. Tyson Mazariegos M.D.* HC/rxdep Voice Rec. ID #[id number] Voice Original ID #[id number] Doc ID #[id number] Rev. #0 cc: Tyson Mazariegos M.D.* Jenn Harris N.P.* MARIAELENA Lester [id number] B.Scott 1950 06/16/2012 (Continued) Page 2 of 3 Page 1 of 3 Authenticated and Edited by TYSON MAZARIEGOS MD On 06/18/12 9:34:21 PM documented in this encounter Plan of Treatment Not on file documented as of this encounter Visit Diagnoses Not on filedocumented in this encounter Care Teams Fuel Pilot Engineer Relationship Specialty Start Date End Date Mayur Barnhart MD [address] [facility] [address] [place] [address] PCP - General Adolescent Medicine 08/19/23 documented as of this encounter
--- NOTE | 2025-06-08 15:27 | XR_ITS ---
FINAL REPORT CLINICAL HISTORY: CELLULITIS OF FOOT RIGHT COMPARISON: None FINDINGS: AP, oblique and lateral views of the right foot were obtained. There is no acute fracture or dislocation. Mild degenerative changes are present. No definite bone destruction is identified. Soft tissues are unremarkable. IMPRESSION: No acute osseous abnormality of the right foot. Reviewed, Interpreted and Dictated by Sarah Larson MD Transcribed by Samantha Mistry Authenticated and [facility]
== END 2025-06-08 23:59 | disposition home or self-care (01) ==
LOC: RAD 15:10
PROVIDERS: PCP Internal Medicine Adolescent Medicine; Visit Provider Internal Medicine Adolescent Medicine
DX: L03.115 Cellulitis of right lower limb (principal); M19.071 Primary osteoarthritis, right ankle and foot
CPT/HCPCS: 73630